=== PATIENT | male | born 1965 | race Caucasian/White ===

== ENCOUNTER 2016-10-24 14:50 | Emergency (ER) | payer OTHER ==
[2016-10-24 15:07] VITALS: BP 124/78; PULSE 88; RESP 16; TEMP 98
--- NOTE | 2016-10-24 15:14 | ED ---
Upper Extremity HPI - General Chief Complaint: Extremity Injury, Upper Stated Complaint: Right hand Injury/[facility] Time Seen by Provider: 10/24/16 15:08 Source: patient, RN notes reviewed, old records reviewed Mode of arrival: ambulatory Limitations: no limitations - History of Present Illness Initial Comments: Patient is a 50-year-old male with chief complaint of right hand injury after having it crushed between to 90 pound boxes of meat. Patient reports that his pain is mainly over the second metacarpal. Patient reports that he is right- handed. He states there is also slight abrasion over the hand. He denies any peripheral paresthesias and reports he has full range of motion of the fingers. Reports pain with flexion and extension of the second digit. He is denies any other injuries. Patient reports that he is up-to-date on his tetanus vaccination. Patient denies any recent fever, chills, shortness of breath, chest pain, back pain, abdominal pain, nausea vomiting, numbness or tingling, dysuria or hematuria, constipation or diarrhea, headaches or visual changes, or any other current symptoms - Related Data Home Medications Medication Instructions Recorded Confirmed Tapentadol HCl [Nucynta] 50 mg PO QID 06/17/14 06/17/14 Previous Rx's Medication Instructions Recorded Ipratropium/Albuterol Sulfate 2 puff INHALATION QID #1 inhaler 06/17/14 [Combivent Respimat Inhaler] predniSONE 20 mg PO BID #10 tab 06/17/14 Doxycycline Monohydrate [Monodox] 100 mg PO Q12HR #20 cap 12/10/14 Ibuprofen [Motrin] 800 mg PO Q6HR PRN #15 tab 10/24/16 Allergies Allergy/AdvReac Type Severity Reaction Status Date / Time amoxicillin [Amoxicillin] Allergy Rash/Hives Verified 10/24/16 15:07 Review of Systems ROS Statement: Those systems with pertinent positive or pertinent negative responses have been documented in the HPI. ROS Other: All systems not noted in ROS Statement are negative. Past Medical History Past Medical History: COPD, Hyperlipidemia Additional Past Medical History / Comment(s): DIVERTICULITIS, BACK PAIN History of Any Multi-Drug Resistant Organisms: None Reported Past Surgical History: Back Surgery, Orthopedic Surgery, Tonsillectomy Past Psychological History: No Psychological Hx Reported Smoking Status: Current every day smoker Past Alcohol Use History: None Reported Past Drug Use History: None Reported General Exam - General Exam Comments Initial Comments: Is a well-appearing 50-year-old male. He does not appear to be in any acute distress. Limitations: no limitations General appearance: alert, in no apparent distress Head exam: Present: atraumatic, normocephalic, normal inspection Eye exam: Present: normal appearance, PERRL, EOMI. Absent: scleral icterus, conjunctival injection, periorbital swelling ENT exam: Present: normal exam, mucous membranes moist Neck exam: Present: normal inspection, full ROM. Absent: tenderness, meningismus, lymphadenopathy Respiratory exam: Present: normal lung sounds bilaterally. Absent: respiratory distress, wheezes, rales, rhonchi, stridor Cardiovascular Exam: Present: regular rate, normal rhythm, normal heart sounds. Absent: systolic murmur, diastolic murmur, rubs, gallop, clicks GI/Abdominal exam: Present: soft, normal bowel sounds. Absent: distended, tenderness, guarding, rebound, rigid Extremities exam: Present: normal inspection, full ROM, normal capillary refill. Absent: tenderness, pedal edema, joint swelling, calf tenderness Right Upper Arm exam: Present: normal inspection, full ROM Elbow exam: Present: normal inspection, full ROM Forearm Wrist exam: Present: full ROM. Absent: normal inspection ( 1 cm Small abrasion on dorsum of right hand), tenderness, swelling Hand Wrist exam: Present: full ROM, swelling (mild swelling of 2nd metacarpal). Absent: normal inspection, tenderness, abrasion, laceration, ecchymosis, deformity, crepitus, dislocation Neuro motor exam: Present: wrist extension intact, thumb opposition intact, thumb IP flexion intact, thumb adduction intact, fingers 2-5 abduction intact Vascular: Present: vascular compromise Back exam: Present: normal inspection Neurological exam: Present: alert, oriented X3, CN II-XII intact Psychiatric exam: Present: normal affect, normal mood Skin exam: Present: warm, dry, intact, normal color. Absent: rash Course Vital Signs 10/24/16 15:05 Temperature 98.0 F Pulse Rate 88 Respiratory 16 Rate Blood Pressure 124/78 O2 Sat by Pulse 97 Oximetry Procedures - Orthopedic Splinting/Casting Injury #1 Side: right Upper Extremity Injury Location: hand Upper Extremity Immobilizer: Magdiel wrap Medical Decision Making - Medical Decision Making Is a 42-year-old male chief complaint of right hand injury after having his hand crushed between tonight boxes. Patient does have full range of motion of finger and denies any peripheral paresthesias. Patient is right-handed. X-ray was reviewed and is negative for any acute process. No fractures or dislocation. Patient will be discharged at this time with an Magdiel wrap and instructed to rest, ice and elevate extremity. I advised him to follow-up with orthopedic if symptoms continue to persist. Return to the EC if any alarming signs occur. Patient will be discharged with Motrin. Patient also given Magdiel wrap. Return parameters were discussed. - Radiology Data Radiology results: report reviewed Hand x-rays negative for any acute process. Disposition Clinical Impression: Contusion of right hand Disposition: HOME SELF-CARE Condition: Good Instructions: Hand Sprain (ED) Additional Instructions: Patient advised to rest, ice, and elevate extremity. Wear Magdiel wrap for the next 24 hours except to sleep. Return to the EC if any alarming signs or symptoms occur. Follow-up with orthopedic physician. Prescriptions: Ibuprofen [Motrin] 800 mg PO Q6HR PRN #15 tab PRN Reason: Pain Referrals: Logan Corbett MD [Primary Care Provider] - 1-2 days Rubio Melendez DO [Doctor of Osteopathic Medicine] - 1-2 days Time of Disposition: 15:44
--- NOTE | 2016-10-24 15:38 | XR ---
EXAMINATION TYPE: XR hand complete RT DATE OF EXAM: 10/24/2016 3:27 PM CLINICAL HISTORY: Pain after laceration injury fourth finger. TECHNIQUE: Frontal, lateral and oblique images of the right hand are obtained. COMPARISON: None. FINDINGS: There is no acute fracture/dislocation evident in the right hand. The joint spaces in the right hand appear within normal limits. Mild soft tissue swelling centered at the fourth proximal pha lanx is noted. No radiodense soft tissue foreign body is seen. IMPRESSION: There is no acute fracture or dislocation in the right hand.
== END 2016-10-24 15:50 | disposition home or self-care (01) ==
LOC: EC 14:50
DX: S60.221A Contusion of right hand, initial encounter (principal); S63.91XA Sprain of unspecified part of right wrist and hand, initial encounter; F17.200 Nicotine dependence, unspecified, uncomplicated; Z88.0 Allergy status to penicillin; W23.0XXA Caught, crushed, jammed, or pinched between moving objects, initial encounter
CPT/HCPCS: 99283

== ENCOUNTER 2016-11-23 17:40 | Emergency (ER) | payer MEDICARE, OTHER ==
[2016-11-23 18:14] VITALS: BP 125/87; PULSE 80; RESP 18; TEMP 97.3
[2016-11-23] MEDS ORDERED: MORPHINE SULFATE 10 MG/ML SYRINGE IM STA (18:43)
--- NOTE | 2016-11-23 18:45 | ED ---
General Adult HPI - General Chief complaint: Recheck/Abnormal Lab/Rx Stated complaint: hand pain swolling post Time Seen by Provider: 11/23/16 18:38 Source: patient, family, RN notes reviewed Mode of arrival: ambulatory Limitations: no limitations - History of Present Illness Initial comments: 51-year-old male presenting for right hand pain and swelling. Patient states that he sustained an open fracture to the right index finger 2 days ago. States he did follow-up at that time and was placed in a splint by a hand specialist. He followed with orthopedics who plans to do surgery this Sunday at [facility]. States that he is on Cipro for prophylactic treatment for the open fracture. States today though that the swelling seems to have increased in his hand in the areas become more painful. He denies fevers or chills associated. - Related Data Home Medications Medication Instructions Recorded Confirmed Ciprofloxacin HCl [Cipro] 500 mg PO Q12HR 11/23/16 11/23/16 HYDROcodone/APAP 5-325MG [[place] 1 tab PO Q6H PRN 11/23/16 11/23/16 5-325] Allergies Allergy/AdvReac Type Severity Reaction Status Date / Time amoxicillin [Amoxicillin] Allergy Rash/Hives Verified 11/23/16 18:40 Review of Systems ROS Statement: Those systems with pertinent positive or pertinent negative responses have been documented in the HPI. ROS Other: All systems not noted in ROS Statement are negative. Past Medical History Past Medical History: COPD, Hyperlipidemia Additional Past Medical History / Comment(s): DIVERTICULITIS, BACK PAIN History of Any Multi-Drug Resistant Organisms: None Reported Past Surgical History: Back Surgery, Orthopedic Surgery, Tonsillectomy Past Psychological History: No Psychological Hx Reported Smoking Status: Current every day smoker Past Alcohol Use History: None Reported Past Drug Use History: None Reported General Exam - General Exam Comments Initial Comments: General: Awake and Alert. No acute distress. Does not appear acutely ill. Eyes: OLIVIER, EOM intact. No nystagmus. No scleral icterus. HENT: Atraumatic, normocephalic. Mucous membranes moist. Trachea midline. Neck: The neck is supple, there is no tenderness or JVD. Cardiovascular: Regular rate and rhythm. No murmur, rub, or gallop is appreciated. Distal pulses intact, radial 2+. Respiratory: Lungs are clear to auscultation bilaterally. No wheezes, rales, rhonchi. No respiratory distress. Gastrointestinal: Soft, Nontender. No rebound or guarding. Non-distended. No masses or organomegaly noted. No CVA tenderness. Musculoskeletal: Splint present over right hand and forearm. Limited removal of splint shows intact skin with sutures present over right index finger at point of fracture. There is some swelling of the digits, but brisk cap refill. Neurovascularly intact digits. Neurological: A&Ox3. CN II-XII grossly intact, There are no obvious motor or sensory deficits. Coordination appears grossly intact. Speech is normal. Skin: Skin is warm and dry and no rashes or lesions are noted. Psychiatric: Cooperative, appropriate mood & affect, normal judgment. Limitations: no limitations Course Vital Signs 11/23/16 18:11 Temperature 97.3 F L Pulse Rate 80 Respiratory 18 Rate Blood Pressure 125/87 O2 Sat by Pulse 97 Oximetry Medical Decision Making - Medical Decision Making 51-year-old male with history of right next finger open fracture. Patient with splinted in place on examination. There is swelling to the hand and digits, although all digits appear neurovascularly intact with brisk cap refill. There is low suspicion of compartment syndrome at this time. X-ray imaging performed without evidence of subQ gas of acute findings. Evaluation of wound appears clean and intact. There is low suspicion for severe infectious or vascular process at this time. He was given medication with improvement of pain. States he has [place] at home to continue with pain management. Recommend ice and elevation. Discussed keeping his splint in place and to continue his prophylactic antibiotics. Patient states he has follow-up on Sunday for surgical pinning at [facility], encouraged to keep this. Discussed concerning signs and symptoms related return to the ED. Patient and family agreeable plan and discharge home. - Radiology Data Radiology results: report reviewed, image reviewed Disposition Clinical Impression: Right hand pain, Swelling of right hand, Fracture of phalanx of index finger Disposition: HOME SELF-CARE Condition: Stable Instructions: Finger Fracture (ED) Additional Instructions: Please keep your splint on at all times. Please keep follow-up with your orthopedic hand specialist at [place]. Referrals: Logan Corbett MD [Primary Care Provider] - 1-2 days Time of Disposition: 19:38
--- NOTE | 2016-11-23 19:13 | XR ---
EXAMINATION TYPE: XR hand limited RT DATE OF EXAM: 11/23/2016 7:02 PM CLINICAL HISTORY: Pain after crushing injury. TECHNIQUE: Frontal and lateral images of the right hand are obtained. COMPARISON: Right hand radiographs dated 10/24/2016. FINDINGS: Overlying splint/casting material limits visualization. The known proximal phalanx obliquel y oriented, minimally displaced fracture of the second digit is identified. There is 1-2 mm radial di splacement of the distal fracture fragment. There is no other gross evidence of fracture, although ag ain is limited. IMPRESSION: Splint/casting material limits visualization. The known second digit proximal phalanx fra cture is identified, obliquely oriented, and minimally radial the displaced (1 to 2 mm).
== END 2016-11-23 19:56 | disposition home or self-care (01) ==
LOC: EC 17:40
DX: S62.610G Displaced fracture of proximal phalanx of right index finger, subsequent encounter for fracture with delayed healing (principal); F17.200 Nicotine dependence, unspecified, uncomplicated; Z88.0 Allergy status to penicillin; X58.XXXD Exposure to other specified factors, subsequent encounter
CPT/HCPCS: 73120; 99283; 96372; J2270

== ENCOUNTER 2018-04-07 19:54 | Emergency (ER) | payer OTHER ==
[2018-04-07 20:02] VITALS: RESP 18
[2018-04-07] MEDS ORDERED: KETOROLAC 30 MG/ML 1 ML VIAL IVP STA (20:22)
--- NOTE | 2018-04-07 20:27 | ED ---
Abdominal Pain HPI - General Source: patient, family, RN notes reviewed Mode of arrival: ambulatory Limitations: no limitations - History of Present Illness MD Complaint: abdominal pain <Forest Bermeo - Last Filed: 04/07/18 21:41> <Servando Louis - Last Filed: 04/07/18 22:23> - General Chief Complaint: Abdominal Pain Stated Complaint: abdominal pain Time Seen by Provider: 04/07/18 20:15 - History of Present Illness Initial Comments: This is a 52-year-old male with a history of diverticulitis in the past with a 7 inch colon resection done in 2010 for the same who states he's had intermittent left lower quadrant abdominal pain for last several days about one hour ago he started having very severe 10/10 sharp stabbing left-sided pain no nausea or vomiting. It is worse when he is upright versus supine. No dysuria no hematuria no history kidney stones no other symptoms reported at this time no other modifying factors (Forest Bermeo) - Related Data Home Medications Medication Instructions Recorded Confirmed Ciprofloxacin HCl [Cipro] 500 mg PO Q12HR 11/23/16 11/23/16 HYDROcodone/APAP 5-325MG [[place] 1 tab PO Q6H PRN 11/23/16 11/23/16 5-325] Previous Rx's Medication Instructions Recorded Dicyclomine [Bentyl] 20 mg PO QID #15 tablet 04/07/18 Allergies Allergy/AdvReac Type Severity Reaction Status Date / Time amoxicillin [Amoxicillin] Allergy Rash/Hives Verified 04/07/18 20:01 Review of Systems ROS Other: All systems not noted in ROS Statement are negative. <Forest Bermeo - Last Filed: 04/07/18 21:41> ROS Other: All systems not noted in ROS Statement are negative. <Servando Louis - Last Filed: 04/07/18 22:23> ROS Statement: Those systems with pertinent positive or pertinent negative responses have been documented in the HPI. Past Medical History Past Medical History: COPD, Hyperlipidemia Additional Past Medical History / Comment(s): DIVERTICULITIS, BACK PAIN History of Any Multi-Drug Resistant Organisms: None Reported Past Surgical History: Back Surgery, Orthopedic Surgery, Tonsillectomy Past Psychological History: No Psychological Hx Reported Smoking Status: Current every day smoker Past Alcohol Use History: None Reported Past Drug Use History: None Reported <Forest Bermeo - Last Filed: 04/07/18 21:41> General Exam Limitations: no limitations General appearance: alert, anxious, in distress Head exam: Present: atraumatic, normocephalic, normal inspection Eye exam: Present: normal appearance, PERRL, EOMI. Absent: scleral icterus, conjunctival injection, periorbital swelling ENT exam: Present: mucous membranes dry Neck exam: Present: normal inspection. Absent: tenderness, meningismus, lymphadenopathy Respiratory exam: Present: normal lung sounds bilaterally. Absent: respiratory distress, wheezes, rales, rhonchi, stridor Cardiovascular Exam: Present: regular rate, normal rhythm, normal heart sounds. Absent: systolic murmur, diastolic murmur, rubs, gallop, clicks GI/Abdominal exam: Present: soft, tenderness (Left lower quadrant tenderness palpation with no guarding rebound masses or bruits), normal bowel sounds. Absent: distended, guarding, rebound, rigid Rectal exam: Present: deferred Extremities exam: Present: normal inspection, full ROM, normal capillary refill. Absent: tenderness, pedal edema, joint swelling, calf tenderness Back exam: Present: normal inspection, full ROM. Absent: CVA tenderness (R), CVA tenderness (L) Neurological exam: Present: alert, oriented X3, CN II-XII intact Psychiatric exam: Present: normal affect, normal mood Skin exam: Present: warm, dry, intact, normal color. Absent: rash <Forest Bermeo - Last Filed: 04/07/18 21:41> <Servando Louis - Last Filed: 04/07/18 22:23> - General Exam Comments Initial Comments: This is a well-developed well-nourished awake alert oriented 3 male (Forest Bermeo) Course <Forest Bermeo - Last Filed: 04/07/18 21:41> <Servando Louis - Last Filed: 04/07/18 22:23> Vital Signs 04/07/18 19:59 Temperature 97.9 F Pulse Rate 79 Respiratory 18 Rate Blood Pressure 136/91 O2 Sat by Pulse 95 Oximetry - Reevaluation(s) Reevaluation #1: 04/07/18 21:05 Patient states he is feeling somewhat better after the initial medication. His pain is down to about 2/10. CT is pending at this time (Forest Bermeo) Reevaluation #2: 04/07/18 21:41 The patient care will be endorsed to Dr. Louis at our shift change. (Forest Bermeo) Medical Decision Making - Lab Data Result diagrams: 04/07/18 20:34 04/07/18 20:34 <Forest Bermeo - Last Filed: 04/07/18 21:41> - Lab Data Result diagrams: 04/07/18 20:34 04/07/18 20:34 <Servando Louis - Last Filed: 04/07/18 22:23> - Medical Decision Making I receive this patient has a sign out, pending the results of his computed tomography scan. I reviewed the results with the patient and on reevaluation, he does not have any abdominal tenderness. He states that he is feeling much better, the pain is nearly entirely resolved. He does state that he has had multiple episodes of this over the past weeks. I discussed that he is follow- up regarding possibility of a colonoscopy. Reviewed the return parameters. All questions answered. (Servando Louis) - Lab Data Lab Results 04/07/18 04/07/18 04/07/18 Range/Units 20:34 20:34 20:34 WBC 11.3 H (3.8-10.6) k/uL RBC 5.24 (4.30-5.90) m/uL Hgb 14.9 (13.0-17.5) gm/dL Hct 44.5 (39.0-53.0) % MCV 84.9 (80.0-100.0) fL MCH 28.4 (25.0-35.0) pg MCHC 33.4 (31.0-37.0) g/dL RDW 13.2 (11.5-15.5) % Plt Count 283 (150-450) k/uL Neutrophils % 59 % Lymphocytes % 30 % Monocytes % 6 % Eosinophils % 2 % Basophils % 0 % Neutrophils # 6.7 (1.3-7.7) k/uL Lymphocytes # 3.5 (1.0-4.8) k/uL Monocytes # 0.7 (0-1.0) k/uL Eosinophils # 0.2 (0-0.7) k/uL Basophils # 0.0 (0-0.2) k/uL PT (9.0-12.0) sec INR (<1.2) APTT (22.0-30.0) sec Sodium 142 (137-145) mmol/L Potassium 3.8 (3.5-5.1) mmol/L Chloride 108 H (98-107) mmol/L Carbon Dioxide 24 (22-30) mmol/L Anion Gap 10 mmol/L BUN 17 (9-20) mg/dL Creatinine 0.90 (0.66-1.25) mg/dL Est GFR (CKD-EPI)AfAm >90 (>60 ml/min/1.73 sqM) Est GFR (CKD-EPI)NonAf >90 (>60 ml/min/1.73 sqM) Glucose 119 H (74-99) mg/dL Plasma Lactic Acid Alec 1.4 (0.7-2.0) mmol/L Calcium 9.3 (8.4-10.2) mg/dL Total Bilirubin 0.3 (0.2-1.3) mg/dL AST 30 (17-59) U/L ALT 32 (21-72) U/L Alkaline Phosphatase 72 (38-126) U/L Total Protein 6.8 (6.3-8.2) g/dL Albumin 4.1 (3.5-5.0) g/dL Amylase 37 (30-110) U/L Lipase 64 (23-300) U/L Urine Color Urine Appearance (Clear) Urine pH (5.0-8.0) Ur Specific [place] (1.001-1.035) Urine Protein (Negative) Urine Glucose (UA) (Negative) Urine Ketones (Negative) Urine Blood (Negative) Urine Nitrite (Negative) Urine Bilirubin (Negative) Urine Urobilinogen (<2.0) mg/dL Ur Leukocyte Esterase (Negative) Amorphous Sediment (None) /hpf Urine Mucus (None) /hpf 04/07/18 04/07/18 Range/Units 20:34 21:39 WBC (3.8-10.6) k/uL RBC (4.30-5.90) m/uL Hgb (13.0-17.5) gm/dL Hct (39.0-53.0) % MCV (80.0-100.0) fL MCH (25.0-35.0) pg MCHC (31.0-37.0) g/dL RDW (11.5-15.5) % Plt Count (150-450) k/uL Neutrophils % % Lymphocytes % % Monocytes % % Eosinophils % % Basophils % % Neutrophils # (1.3-7.7) k/uL Lymphocytes # (1.0-4.8) k/uL Monocytes # (0-1.0) k/uL Eosinophils # (0-0.7) k/uL Basophils # (0-0.2) k/uL PT 11.3 (9.0-12.0) sec INR 1.2 H (<1.2) APTT 23.0 (22.0-30.0) sec Sodium (137-145) mmol/L Potassium (3.5-5.1) mmol/L Chloride (98-107) mmol/L Carbon Dioxide (22-30) mmol/L Anion Gap mmol/L BUN (9-20) mg/dL Creatinine (0.66-1.25) mg/dL Est GFR (CKD-EPI)AfAm (>60 ml/min/1.73 sqM) Est GFR (CKD-EPI)NonAf (>60 ml/min/1.73 sqM) Glucose (74-99) mg/dL Plasma Lactic Acid Alec (0.7-2.0) mmol/L Calcium (8.4-10.2) mg/dL Total Bilirubin (0.2-1.3) mg/dL AST (17-59) U/L ALT (21-72) U/L Alkaline Phosphatase (38-126) U/L Total Protein (6.3-8.2) g/dL Albumin (3.5-5.0) g/dL Amylase (30-110) U/L Lipase (23-300) U/L Urine Color Yellow Urine Appearance Cloudy (Clear) Urine pH 7.0 (5.0-8.0) Ur Specific [place] 1.023 (1.001-1.035) Urine Protein Trace H (Negative) Urine Glucose (UA) Negative (Negative) Urine Ketones Negative (Negative) Urine Blood Negative (Negative) Urine Nitrite Negative (Negative) Urine Bilirubin Negative (Negative) Urine Urobilinogen 2.0 (<2.0) mg/dL Ur Leukocyte Esterase Negative (Negative) Amorphous Sediment Rare H (None) /hpf Urine Mucus Rare H (None) /hpf Disposition <Forest Bermeo - Last Filed: 04/07/18 21:41> Is patient prescribed a controlled substance at d/c from ED?: No <Servando Louis - Last Filed: 04/07/18 22:23> Clinical Impression: Abdominal pain Disposition: HOME SELF-CARE Condition: Good Instructions: Abdominal Pain (ED) Prescriptions: Dicyclomine [Bentyl] 20 mg PO QID #15 tablet Referrals: Karan Corbett MD [Primary Care Provider] - 1-2 days Saul Gutierrez MD [STAFF PHYSICIAN] - 1-2 days
[2018-04-07 20:45] LABS: Basophils % (A) 0 %; Eosinophils # (A) 0.2 k/uL (0-0.7); Eosinophils % (A) 2 %; HCT 44.5 % (39.0-53.0); HGB 14.9 gm/dL (13.0-17.5); Lymphocytes # (A) 3.5 k/uL (1.0-4.8); Lymphocytes % (A) 30 %; MCH 28.4 pg (25.0-35.0); MCHC 33.4 g/dL (31.0-37.0); MCV 84.9 fL (80.0-100.0); Mean Platelet Volume 7.1; Monocytes # (A) 0.7 k/uL (0-1.0); Monocytes % (A) 6 %; Neutrophils # (A) 6.7 k/uL (1.3-7.7); Neutrophils % (A) 59 %; Platelet Count 283 k/uL (150-450); RBC 5.24 m/uL (4.30-5.90); RDW 13.2 % (11.5-15.5); WBC 11.3 k/uL (3.8-10.6)
[2018-04-07 20:54] LABS: ALT 32 U/L (21-72); AST 30 U/L (17-59); Albumin 4.1 g/dL (3.5-5.0); Alkaline Phosphatase 72 U/L (38-126); Amylase 37 U/L (30-110); Anion Gap 10 mmol/L; Blood Urea Nitrogen 17 mg/dL (9-20); Calcium 9.3 mg/dL (8.4-10.2); Carbon Dioxide 24 mmol/L (22-30); Chloride 108 mmol/L (98-107); Glucose 119 mg/dL (74-99); Lipase 64 U/L (23-300); Potassium 3.8 mmol/L (3.5-5.1); Sodium 142 mmol/L (137-145); Total Bilirubin 0.3 mg/dL (0.2-1.3); Total Protein 6.8 g/dL (6.3-8.2)
[2018-04-07 20:55] LABS: INR 1.2 (<1.2); Prothrombin Time 11.3 sec (9.0-12.0)
--- NOTE | 2018-04-07 21:31 | CT ---
EXAMINATION TYPE: CT abdomen pelvis wo con DATE OF EXAM: 04/07/2018 HISTORY: Abdominal pain/umbilical region CT DLP: 568.10 mGycm. Automated Exposure Control for Dose Reduction was Utilized. TECHNIQUE: CT scan of the abdomen and pelvis is performed without oral or IV contrast. COMPARISON: CT of pelvis 02/25/2011 FINDINGS: Within the limitations of a non-contrast study, the following observations are made. LUNG BASES: No significant abnormality is appreciated. Left hemidiaphragm is again nonspecifically el evated. LIVER/GB: No significant abnormality is appreciated. PANCREAS: No significant abnormality is seen. SPLEEN: No significant abnormality is seen. ADRENALS: No significant abnormality is seen. KIDNEYS: No significant abnormality. The right sided renal cyst has increased in size in the interval and remains benign by imaging characteristics. BOWEL: No significant abnormality is seen. Appendix is air-filled and unremarkable. Postsurgical thurman ges of the rectosigmoid colon are evident. GENITAL ORGANS: No gross abnormality seen. LYMPH NODES: No greater than 1cm abdominal or pelvic lymph nodes are appreciated. OSSEOUS STRUCTURES: No significant abnormality is seen. OTHER: No significant additional abnormality is seen. IMPRESSION: No acute intra-abdominal or pelvic process on this unenhanced exam. No significant interval change.
[2018-04-07 21:52] LABS: Amorphous Sediment,Urine Rare /hpf; Appearance,Urine Cloudy (Clear); Bilirubin,Urine Negative (Negative); Blood,Urine Negative (Negative); Color,Urine Yellow; Glucose,Urine (UA) Negative (Negative); Ketones,Urine Negative (Negative); Leukocyte Esterase,Urine Negative (Negative); Mucus,Urine Rare /hpf; Nitrite,Urine Negative (Negative); Protein,Urine Trace (Negative); Specific Gravity,Urine 1.023 (1.001-1.035)
[2018-04-07 23:00] VITALS: BP 107/56; PULSE 66; TEMP 97.6
== END 2018-04-07 22:59 | disposition home or self-care (01) ==
LOC: EC 19:54
DX: R10.32 Left lower quadrant pain (principal); F17.200 Nicotine dependence, unspecified, uncomplicated; Z88.0 Allergy status to penicillin; Z87.19 Personal history of other diseases of the digestive system
CPT/HCPCS: 96374 ×2; 99284 ×2; 36415; 80053; 82150; 83605; 83690; 85025; 85610; 85730; 81001; 74176; J1885

== ENCOUNTER → 2018-05-03 | Outpatient (CLI) | payer OTHER ==
--- NOTE | 2018-05-03 16:39 | CT ---
EXAMINATION TYPE: CT abdomen pelvis w con DATE OF EXAM: 05/03/2018 COMPARISON: CT abdomen pelvis April 07, 2018. HISTORY: Left lower abdominal pain for 2 months. History of colon resection from diverticulitis. CT DLP: 803.2 mGycm, Automated Exposure Control for Dose Reduction was Utilized. CONTRAST: CT scan of the abdomen and pelvis is performed with oral and with IV Contrast, patient injected with 100 mL of Isovue 300. FINDINGS: LUNG BASES: There is persistent linear scarring laterally in the left lung base. Elevated left hemidi aphragm is redemonstrated. LIVER/GB: No significant abnormality is appreciated. PANCREAS: No significant abnormality is seen. SPLEEN: No significant abnormality is seen. ADRENALS: No significant abnormality is seen. KIDNEYS: There is 6.2 cm simple appearing exophytic cyst upper pole level right kidney redemonstrated . Some scattered pelvic phleboliths are seen. BOWEL: Normal-appearing appendix is seen from cecum. Oral contrast does not reach level of cecum karrie ng evaluation of distal bowel slightly suboptimal. There is no suspicious small or large bowel dilata tion. Surgical sutures of sigmoid rectal colon axial image 76 are redemonstrated. Some prominent but subcentimeter lymph nodes in the right lower quadrant mesentery for reference axia l image 59; a 10 x 8mm lymph node is redemonstrated. PROSTATE/SEMINAL VESICLES: No gross abnormality seen. LYMPH NODES: No greater than 1cm abdominal or pelvic lymph nodes are appreciated. OSSEOUS STRUCTURES: Moderate multilevel facet arthropathy in the lower lumbar spine is redemonstrated . OTHER: Stable tiny fat-containing umbilical hernia. Mild to moderate mixed plaque in the abdominal ao rta. Surgical clips near left common iliac artery are redemonstrated. IMPRESSION: No significant new or acute finding is seen to account for patient's clinical symptoms.
== END | disposition home or self-care (01) ==
LOC: RADCTMAIN 14:06
PROVIDERS: ATTEND Surgery
DX: K57.32 Diverticulitis of large intestine without perforation or abscess without bleeding (principal)
CPT/HCPCS: 74177; Q9967

== ENCOUNTER 2019-12-25 16:54 | Observation (INO) | payer OTHER ==
[2019-12-25] MEDS ORDERED: SODIUM CHLORIDE 0.9% 500 ML 500 ML IV STA (17:34)
[2019-12-25] MEDS ORDERED: ASPIRIN 81 MG PO STA (17:34)
[2019-12-25] MEDS ORDERED: NITROGLYCERIN SL TABS 0.4 MG TAB SUBLINGUAL STA (17:40)
[2019-12-25 18:08] LABS: Basophils % (A) 0 %; Eosinophils # (A) 0.1 k/uL (0-0.7); Eosinophils % (A) 1 %; HCT 46.5 % (39.0-53.0); HGB 15.2 gm/dL (13.0-17.5); Lymphocytes # (A) 3.3 k/uL (1.0-4.8); Lymphocytes % (A) 26 %; MCHC 32.7 g/dL (31.0-37.0); MCV 85.7 fL (80.0-100.0); Mean Platelet Volume 7.8; Monocytes % (A) 8 %; Neutrophils # (A) 7.9 k/uL (1.3-7.7); Neutrophils % (A) 62 %; Platelet Count 342 k/uL (150-450); RBC 5.43 m/uL (4.30-5.90); WBC 12.6 k/uL (3.8-10.6)
[2019-12-25 18:15] LABS: ALT 20 U/L (4-49); AST 25 U/L (17-59); African American GFR (CKD) >90 (>60 ml/min/1.73 sqM); Albumin 4.6 g/dL (3.5-5.0); Alkaline Phosphatase 97 U/L (38-126); Anion Gap 6 mmol/L; Blood Urea Nitrogen 10 mg/dL (9-20); C Reactive Protein 10.6 mg/L (<10.0); Calcium 9.5 mg/dL (8.4-10.2); Carbon Dioxide 25 mmol/L (22-30); Chloride 104 mmol/L (98-107); Glucose 144 mg/dL (74-99); LDH 484 U/L (313-618); Magnesium 1.9 mg/dL (1.6-2.3); Non-African American GFR(CKD) >90 (>60 ml/min/1.73 sqM); Potassium 4.3 mmol/L (3.5-5.1); Sodium 135 mmol/L (137-145); Total Bilirubin 0.4 mg/dL (0.2-1.3); Total Protein 7.8 g/dL (6.3-8.2)
[2019-12-25 18:18] LABS: D-Dimer 0.38 mg/L FEU (<0.60); Partial Thromboplastin Time 24.2 sec (22.0-30.0); Prothrombin Time 10.6 sec (9.0-12.0)
--- NOTE | 2019-12-25 18:26 | XR ---
EXAMINATION TYPE: XR chest 1V portable DATE OF EXAM: 12/25/2019 COMPARISON: 06/17/2014 INDICATION: Suspected Covid 19 pneumonia TECHNIQUE: Single frontal view of the chest is obtained. FINDINGS: The heart size is normal. The pulmonary vasculature is normal. There is some infiltrate just above the elevated left diaphragm. Correlate for atelectasis. Pneumonia could be considered. IMPRESSION: 1. Elevated left diaphragm. Some infiltrate is just above the elevated diaphragm. Atelectasis and pne umonia should be considered.
--- NOTE | 2019-12-25 19:27 | ED ---
Chest Pain HPI - General Source: patient Mode of arrival: wheelchair Limitations: no limitations <Ginna Rosas - Last Filed: 12/25/19 20:28> <Tomasa Gongora - Last Filed: 12/27/19 13:44> - General Chief Complaint: Chest Pain Stated Complaint: Chest pain Time Seen by Provider: 12/25/19 17:13 - History of Present Illness Initial Comments: Patient is a 54-year-old male, with history of COPD, presenting to the emergency Department with complaints of chest pain that started today. Patient states he's been having increasing shortness of breath over the past 2-3 days and then this morning while he was working, he started having chest pain. Patient states it's been continuous throughout today. 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 He describes the pain as sharp, on the left side of his chest. Patient denies history of cardiac events, he has not had a stress test. He does not currently have a PCP. Patient denies recent fever, chills, abdominal pain, nausea, vomiting. He does admit to having a cough for the past 2-3 days as well. He admits to smoking about a pack a day. No other drug use. He has no other complaints at this time. Upon arrival to the ER, his vital signs are stable, afebrile. (Ginna Rosas) - Related Data Home Medications Medication Instructions Recorded Confirmed Albuterol Inhaler [Ventolin Hfa 2 puff INHALATION RT-QID PRN 12/25/19 12/25/19 Inhaler] Allergies Allergy/AdvReac Type Severity Reaction Status Date / Time amoxicillin [Amoxicillin] Allergy Rash/Hives Verified 12/25/19 19:39 Review of Systems ROS Other: All systems not noted in ROS Statement are negative. <Ginna Rosas - Last Filed: 12/25/19 20:28> ROS Other: All systems not noted in ROS Statement are negative. <Tomasa Gongora - Last Filed: 12/27/19 13:44> ROS Statement: Those systems with pertinent positive or pertinent negative responses have been documented in the HPI. EKG Findings - EKG Comments: EKG Findings:: Ventricular rate 78, CT interval 140, QTC 449. Normal sinus rhythm. Normal ECG. No signs of acute ischemia. <Ginna Rosas - Last Filed: 12/25/19 20:28> Past Medical History Past Medical History: COPD, Hyperlipidemia Additional Past Medical History / Comment(s): DIVERTICULITIS, BACK PAIN History of Any Multi-Drug Resistant Organisms: None Reported Past Surgical History: Back Surgery, Orthopedic Surgery, Tonsillectomy Past Psychological History: No Psychological Hx Reported Smoking Status: Current every day smoker Past Alcohol Use History: None Reported Past Drug Use History: None Reported <Ginna Rosas - Last Filed: 12/25/19 20:28> General Exam Limitations: no limitations <Ginna Rosas - Last Filed: 12/25/19 20:28> - General Exam Comments Initial Comments: GENERAL: Well-appearing, well-nourished and in no acute distress. HEAD: Atraumatic, normocephalic. EYES: Pupils equal round and reactive to light, extraocular movements intact, sclera anicteric, conjunctiva are normal. ENT: TMs normal, nares patent, oropharynx clear without exudates. Moist mucous membranes. NECK: Normal range of motion, supple without lymphadenopathy or JVD. LUNGS: Breath sounds clear to auscultation bilaterally and equal. Mild expiratory wheezes scattered throughout. HEART: Regular rate and rhythm without murmurs, rubs or gallops. ABDOMEN: Soft, nontender, normoactive bowel sounds. No guarding, no rebound. No masses appreciated. : Deferred EXTREMITIES: Normal range of motion, no pitting or edema. No clubbing or cyanosis. NEUROLOGICAL: Normal speech, normal gait. PSYCH: Normal mood, normal affect. SKIN: Warm, Dry, normal turgor, no rashes or lesions noted. (Ginna Rosas) Course Vital Signs 12/25/19 12/25/19 12/25/19 16:56 18:45 20:30 Temperature 98.0 F Pulse Rate 82 86 76 Respiratory 18 18 18 Rate Blood Pressure 152/90 132/91 119/91 O2 Sat by Pulse 97 94 L 95 Oximetry 12/25/19 21:00 Temperature 98.4 F Pulse Rate 76 Respiratory 18 Rate Blood Pressure 137/94 O2 Sat by Pulse 95 Oximetry Chest Pain MDM <Ginna Rosas - Last Filed: 12/25/19 20:28> <Tomasa Gongora - Last Filed: 12/27/19 13:44> - [facility] Patient is a 54-year-old male presenting for chest pain 1 day. He does have history of COPD. The last 2 days he had a cough and shortness of breath and then today experienced chest pain. His vitals are stable upon arrival. His exam is unremarkable. His EKG shows no signs of acute ischemia. Lab work shows slight leukocytosis at 12.6 with left shift. D-dimer was normal. Lactic acid is 1.0. Troponin was normal, rapid Gibson and influenza were both negative. Chest x-ray does reveal some mild infiltrate on the left side. Pneumonia is considered. Patient was given fluids, nitro upon arrival. He states his chest pain did decrease with the nitro. He is comfortable at this time. Patient will be given single dose of azithromycin as well as steroids for probable pneumonia. Patient will be admitted for cardiac consult and cardiac rule out. Patient was accepted by Dr. Corbett. Case discussed with Dr. Gongora. (Ginna Rosas) I was available for consultation in the emergency department. The history and physical exam were done by the midlevel provider. I was consulted for this patients care. I reviewed the case with the midlevel provider and based on their presentation of the patient, I agree with the assessment, medical decision making and plan of care as documented. Chart was dictated using [employer] dictation software. Attempts were made to correct any dictation errors however some typographical errors may persist. Patient was seen during a national state of emergency due to the Covid-19 pandemic. (Tomasa Gongora) Disposition Is patient prescribed a controlled substance at d/c from ED?: No Decision Date: 12/25/19 Decision Time: 19:47 <Ginna Rosas - Last Filed: 12/25/19 20:28> <Tomasa Gongora - Last Filed: 12/27/19 13:44> Clinical Impression: Chest pain, Pneumonia Disposition: ADMITTED IP TO THIS HOSP Condition: Good
[2019-12-25] MEDS ORDERED: NITROGLYCERIN SL TABS 0.4 MG TAB SUBLINGUAL PRN (19:45)
[2019-12-25] MEDS ORDERED: AZITHROMYCIN 500 MG TAB PO STA (19:48)
[2019-12-25] MEDS ORDERED: methylPREDNISolone SOD SUCCI 125 MG/2 ML VIAL IV STA (19:48)
[2019-12-26] MEDS: methylPREDNISolone SOD SUCCI 40 MG/ML 1 ML VIAL IV SCH ×4 (00:02→22:46)
[2019-12-26] MEDS: ACETAMINOPHEN TAB 325 MG TAB PO PRN ×3 (03:19→18:59)
[2019-12-26 04:04] LABS: Ferritin 238.7 ng/mL (22.0-322.0)
[2019-12-26 05:53] LABS: Glucose,Whole Blood 143 mg/dL (75-99)
[2019-12-26 06:40] LABS: Cholesterol 288 mg/dL (<200); HDL Cholesterol 46 mg/dL (40-60); LDL Cholesterol,Calculated 221 mg/dL (0-99); Triglycerides 104 mg/dL (<150)
--- NOTE | 2019-12-26 09:44 | ECHOF ---
Referral Reason:chest pain MEASUREMENTS -------- HEIGHT: 180.3 cm WEIGHT: 58.1 kg BP: 117/79 IVSd: 1.2 cm (0.6 - 1.1) LVIDd: 3.4 cm (3.9 - 5.3) LVPWd: 1.2 cm (0.6 - 1.1) IVSs: 1.2 cm LVIDs: 2.3 cm LVPWs: 1.2 cm LAESV Index (A-L): 11.71 ml/m Ao Diam: 3.5 cm (2.0 - 3.7) AV Cusp: 1.7 cm (1.5 - 2.6) LA Diam: 2.4 cm (2.7 - 3.8) MV EXCURSION: 24.295 mm (> 18.000) MV EF SLOPE: 160 mm/s (70 - 150) EPSS: 0.7 cm MV E Bc: 0.75 m/s MV DecT: 220 ms MV A Bc: 0.72 m/s MV E/A Ratio: 1.05 RAP: 5.00 mmHg RVSP: 8.66 mmHg FINDINGS -------- Sinus rhythm. This was a technically adequate study. The left ventricular size is normal. There is mild concentric left ventricular hypertrophy. Overa ll left ventricular systolic function is normal with, an EF between 55 - 60 %. The diastolic fillin g pattern is normal for the age of the patient 9.18. The RV was not well visualized. Normal LA size by volume 22+/-6 ml/m2. The right atrial size is normal. The aortic valve was not well visualized. The mitral valve leaflets are mildly thickened. There is trace mitral regurgitation. The tricuspid valve appears structurally normal. Trace tricuspid regurgitation present. Right marcell tricular systolic pressure is normal at < 35 mmHg. There is no pulmonic regurgitation present. The aortic root size is normal. IVC Not well visulized. There is no pericardial effusion. CONCLUSIONS -------- 1. There is mild concentric left ventricular hypertrophy. 2. Overall left ventricular systolic function is normal with, an EF between 55 - 60 %. 3. The diastolic filling pattern is normal for the age of the patient 9.18 4. The RV was not well visualized. 5. Normal LA size by volume 22+/-6 ml/m2. 6. The aortic valve was not well visualized. 7. There is trace mitral regurgitation. 8. Trace tricuspid regurgitation present. CIRCUIT CLERK: Kaylah Humphries RDCS
[2019-12-26] MEDS: HEPARIN SODIUM,PORCINE 5,000 UNIT/ML 1 ML VIAL SQ SCH ×2 (10:20→19:56)
[2019-12-26] MEDS: AZITHROMYCIN 500 MG in SODIUM CHLORIDE 0.9% 250 ML IVPB SCH (10:20)
[2019-12-26] MEDS: ASPIRIN 325 MG TAB PO SCH (10:20)
[2019-12-26 11:06] LABS: Glucose,Whole Blood 190 mg/dL (75-99)
--- NOTE | 2019-12-26 11:08 | CONS ---
CONSULTATION Abner Dempsey is a 54-year-old gentleman without significant past medical history. He seems to have some bronchial asthma and takes an inhaler occasionally. He came into the hospital with complaints of what he described as a sharp pain in the chest. He has been having some shortness of breath over the last 2 to 3 days and he started having pain. It occurred actually when he was doing some not very light physical activity. 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 His symptoms have completely resolved. He is resting comfortably at the time of my evaluation. He has no chest pain or shortness of breath. He seems to be much more comfortable. He does carry an inhaler and has a diagnosis of possible bronchial asthma. PAST MEDICAL HISTORY: Remarkable for some the smoking and COPD. ALLERGIES: PENICILLIN. MEDICATIONS: He does not take any regular medications. He is status post back surgery and tonsillectomy. PHYSICAL EXAMINATION: On examination, blood pressure is 118/70, pulse rate is 68 per minute regular. HEENT: Unremarkable. Fundus was not examined by me. Neck is supple. No JVD. I do not hear a carotid bruit. There is no thyromegaly. Heart exam reveals S1, S2 with some scattered rhonchi. Abdomen is soft, nontender. Lower extremities reveal normal pulses. No edema. Central nervous system is grossly within normal limits. EKG revealed a sinus mechanism, no acute changes. LABORATORY DATA: Laboratory data revealed that his 3 sets of troponins are normal. LDL cholesterol is elevated over 220. His BNP is unremarkable. His serology for the coronavirus was negative. His D-dimer is normal. IMPRESSION: 1. Atypical chest pain. 2. Exacerbation of chronic obstructive pulmonary disease/bronchial asthma. 3. History of smoking. 4. Hyperlipidemia. RECOMMENDATIONS: I am recommending that we will initiate him on a statin agent given his significantly elevated LDL cholesterol. Once his respiratory status improves, he can have a stress test as an outpatient. Patient is currently on steroids and bronchodilators and Zithromax. Once his respiratory status is stabilized, we will can do a stress test as an outpatient. I will initiate him on Lipitor 40 mg daily p.o. There is no evidence to suggest any ongoing acute myocardial ischemia. Thank you very much for the consult. MMODL / IJN: [id number] /
[2019-12-26] MEDS ORDERED: RX INFO: IV CONTRAST WAS GIVEN 1 EACH MISC MISCELLANE PRN (14:08)
--- NOTE | 2019-12-26 15:35 | CT ---
EXAMINATION TYPE: CT chest w con DATE OF EXAM: 12/26/2019 COMPARISON: None HISTORY: Left side chest pain CT DLP: 445 mGycm, Automated exposure control for dose reduction was used. CONTRAST: Performed injected with 100 mL of Isovue 300. TECHNIQUE: Axial images were obtained at 5 mm thick sections. Reconstructed images are reviewed on [employer] computer in the coronal plane. FINDINGS: Portion of the thyroid visualized is normal. No suspicious lung nodules or focal infiltrates are present. Minimal emphysematous changes are at the lung apices with blebs. No enlarged mediastinal or hilar adenopathy is evident. The ascending aorta diameter at the level o f the main pulmonary artery is 3.4 cm. The main pulmonary artery diameter at the bifurcation is 2.9 cm. There is elevation of the left diaphragm. Previous infiltrate on the chest x-ray of 12/25/2019 is not evident on the lung windows and likely represented atelectasis. Minimal residual may remain within th e lingula. Limited CT sections are obtained through the upper abdomen. A large cyst is on the posterior superior pole right kidney measuring 6.4 cm and 8 Hounsfield units. IMPRESSIONS: 1. Resolving infiltrate within the lingula, diminished from the chest x-ray may be resolving atelecta sis. 2. Chronic elevation left diaphragm
--- NOTE | 2019-12-26 15:51 | HP ---
HISTORY AND PHYSICAL A 54-year-old white male, history of COPD, came to the emergency room with chest pain that started today. Increasing shortness of breath for the past 2-3 days with left- sided pleuritic chest pain. 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 Pain is sharp, left-sided chest, clearly pleuritic and respiratory in nature. He has been short of breath and had some diaphoresis, fevers, chills. He smokes a pack of cigarettes a day. Does not do drugs. No other complaints. HOME MEDICINES: Takes Albuterol for COPD. ALLERGIES: AMOXICILLIN. . 14 POINT REVIEW OF SYSTEMS: Negative except for HPI. EKG shows normal sinus rhythm. PAST MEDICAL HISTORY: COPD, dyslipidemia, diverticulitis, chronic back pains. SURGICAL HISTORY: Back surgery, orthopedic surgery, tonsillectomy, current everyday smoker. PHYSICAL EXAM: Vital signs are stable, afebrile. CARDIOVASCULAR S1, S2. LUNGS: Transmitted upper airway sounds. HEMATOLOGIC: Negative Homans. LUNGS: Show transmitted upper airway sounds. Left upper chest, some mild wheeze and rhonchi. PSYCH: Fair mood and affect. SKIN: Warm and dry. No rash. He looks his stated age. Temp is 98, pulse 80 to 86, respiratory 18-25, blood pressure 130s to 150s/90 to 91, O2 is 97% to 94% on room air. ASSESSMENT: Chest pain, pneumonia. He had negative salazar and influenza, but we have to repeat the salazar test. Suspect he has COVID infection versus community-acquired pneumonia. Treat with antibiotics and anti-inflammatories. Follow up next 24 to 48 hours. Nicotine patch. IV steroids. MMODL / IJN: [id number] /
[2019-12-26 16:31] LABS: Glucose,Whole Blood 135 mg/dL (75-99)
[2019-12-26 20:34] LABS: Glucose,Whole Blood 152 mg/dL (75-99)
--- NOTE | 2019-12-27 00:38 | P.CONS ---
History of Present Illness - Reason for Consult Consult date: 12/26/19 pneumonia ?COVID Requesting physician: Logan Corbett - Chief Complaint LEFT SIDED Chest pain x 1 day - History of Present Illness Patient is a 54-year-old male presenting to the ER at [facility] last evening with chief complaints of chest pain that started the day he presented to the hospital patient did have been mostly on the left side of the chest describing to be more of a sharp in nature intensity almost 7-8 of 10 when he presented to hospital no radiation patient did have significantly shortness of breath with it did have have very minimal cough 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 but denies any fever or any chills with the symptom the patient was evaluated by the ER physician on arrival to the ER patient has been afebrile patient did have a mild elevated white blood 12.6 current exam are negative CRP was mildly elevated 10.6 attending normal procalcitonin was normal lactic acid was normal patient did have a chest x-ray which shows elevated left hemidiaphrag m some infiltrate just above the diaphragm consulted for atelectasis or pneumonia patient was started on Zithromax has been admitted to hospital infectious was consulted for further recommendation of antibiotic therapy patient did have COVID-19 her nasopharyngeal swab which came back negative and his CT of the chest completed today shows resolving infiltrate within the lingula. Review of Systems Positive point has been mentioned in HPI rest of the systems are negative Past Medical History Past Medical History: COPD Additional Past Medical History / Comment(s): DIVERTICULITIS, BACK PAIN History of Any Multi-Drug Resistant Organisms: None Reported Past Surgical History: Back Surgery, Orthopedic Surgery, Tonsillectomy Additional Past Surgical History / Comment(s): L5 S1 laminectomy Past Psychological History: No Psychological Hx Reported Smoking Status: Current every day smoker Past Alcohol Use History: None Reported Past Drug Use History: None Reported Medications and Allergies Home Medications Medication Instructions Recorded Confirmed Type Albuterol Inhaler [Ventolin Hfa 2 puff INHALATION RT-QID PRN 12/25/19 12/25/19 History Inhaler] Allergies Allergy/AdvReac Type Severity Reaction Status Date / Time amoxicillin [Amoxicillin] Allergy Rash/Hives Verified 12/25/19 19:39 Physical Exam Vitals: Vital Signs Temp Pulse Resp BP Pulse Ox 12/26/19 23:04 85 18 12/26/19 23:02 98.6 F 85 18 127/76 94 L 12/26/19 20:00 98.7 F 82 19 138/81 95 12/26/19 16:05 97.8 F 78 16 103/76 92 L 12/26/19 15:39 79 16 12/26/19 13:17 97.8 F 78 16 119/75 94 L 12/26/19 12:24 81 18 12/26/19 10:00 97.5 F L 87 18 117/70 94 L 12/26/19 07:15 95 12/26/19 03:40 64 18 12/26/19 03:39 97.6 F 64 18 117/79 95 12/26/19 00:05 82 18 12/26/19 00:03 97.8 F 82 18 125/78 97 12/25/19 23:41 97.6 F 76 18 137/80 95 Intake and Output 12/26/19 12/26/19 12/27/19 14:59 22:59 06:59 Intake Total 444 490 10 Balance 444 490 10 Intake: IV 10 10 Invasive Line 1 10 10 Oral 444 480 Other: Voiding Method Toilet Toilet Toilet # Voids 1 2 GENERAL DESCRIPTION: Middle-aged male lying in bed, no distress. No tachypnea or accessory muscle of respiration use. HEENT: Shows Pallor , no scleral icterus. Oral mucous membrane is dry. NECK: Trachea central, no thyromegaly. LUNGS: Unlabored breathing. Clear to auscultation anteriorly. No wheeze or crackle. HEART: S1, S2, regular rate and rhythm. ABDOMEN: Soft, no tenderness , guarding or rigidity EXTREMITIES: No edema of feet. SKIN: No rash, no masses palpable. NEUROLOGICAL: The patient is awake, alert, oriented x3, mood and affect normal. Results CBC & Chem 7: 12/25/19 17:15 12/25/19 17:15 Labs: Abnormal Lab Results - Last 24 Hours (Table) 12/26/19 12/26/19 12/26/19 Range/Units 05:13 05:44 11:05 POC Glucose (mg/dL) 143 H 190 H (75-99) mg/dL Cholesterol 288 H (<200) mg/dL LDL Cholesterol, Calc 221 H (0-99) mg/dL 12/26/19 12/26/19 Range/Units 16:30 20:33 POC Glucose (mg/dL) 135 H 152 H (75-99) mg/dL Cholesterol (<200) mg/dL LDL Cholesterol, Calc (0-99) mg/dL Assessment and Plan Assessment: 1-patient presented to hospital with left-sided chest pain which could be more likely muscular in this patient being started when he was lifting heavy garbage, patient with no fever however did have a mild elevated white count with initial x-ray suspicious for pneumonia possible community-acquired the patient overall improvement in his symptoms with Zithromax 2-patient with penicillin allergy limited number of antibiotics safe to use. 3-patient with no fever , no lymphopenia and normal LDH make it less likely to be acute COVID-19 infection (1) Pneumonia Current Visit: Yes Status: Acute Code(s): J18.9 - PNEUMONIA, UNSPECIFIED ORGANISM SNOMED Code(s): 136135193 Plan: 1-we will add Rocephin 1 g daily and continue with Zithromax 2-obtain a sputum for Gram stain and culture We will follow on clinical condition and cultures to further adjust medication if needed Thank you for this consultation we will follow the patient along with you Time with Patient: Greater than 30
[2019-12-27 04:12] VITALS: RESP 16
[2019-12-27 06:17] LABS: Glucose,Whole Blood 147 mg/dL (75-99)
[2019-12-27] MEDS: AZITHROMYCIN 500 MG in SODIUM CHLORIDE 0.9% 250 ML IVPB SCH (09:34)
[2019-12-27] MEDS: ASPIRIN 325 MG TAB PO SCH (09:34)
[2019-12-27] MEDS: HEPARIN SODIUM,PORCINE 5,000 UNIT/ML 1 ML VIAL SQ SCH (09:34)
[2019-12-27] MEDS: methylPREDNISolone SOD SUCCI 40 MG/ML 1 ML VIAL IV SCH (09:34)
[2019-12-27] MEDS ORDERED: ATORVASTATIN 40 MG TAB PO SCH (09:50)
[2019-12-27 10:47] VITALS: TEMP 97.6
[2019-12-27 12:16] LABS: Glucose,Whole Blood 111 mg/dL (75-99)
--- NOTE | 2019-12-27 14:11 | PN ---
PROGRESS NOTE Mr. Dempsey is comfortable, resting. No further chest pain. His breathing is easier. Vitals are stable. No JVD, S1, S2 heard normally. Lungs are clear. Abdomen and lower extremity exam unchanged. Plan is to continue current medications, increase activity and he can be discharged and I will see him in the office in 3 weeks and once his respiratory situation is resolved and he is back to his normal self, I will do a stress test for him. Explained this at length. He will be discharged today MMODL / IJN: [id number] /
--- NOTE | 2019-12-27 14:39 | P.CNPUL ---
History of Present Illness Consult date: 12/27/19 Reason for consult: dyspnea, cough, COPD, pneumonia Chief complaint: Shortness of breath and cough started 3-4 days ago History of present illness: This is a 54-year-old male with extensive history of smoking and nicotine use came to emergency department at [facility] on December 24 with chief complaints of chest pain that started the day he presented to the hospital patient did have been mostly on the left side of the chest describing to be more of a sharp in nature intensity almost 7-8 of 10 when he presented to hospital no radiation patient did have significantly shortness of breath with it did have have very minimal cough 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 Patient did have a chest x-ray which shows elevated left hemidiaphragm some infiltrate just above the diaphragm consulted for atelectasis or pneumonia patient was started on Zithromax has been admitted to hospital Patient did have COVID-19 her nasopharyngeal swab which came back negative and his CT of the chest on December 25 shows resolving infiltrate within the lingula. Today he is feeling much better with decreased cough and congestion Review of Systems All systems: negative Past Medical History Past Medical History: COPD Additional Past Medical History / Comment(s): DIVERTICULITIS, BACK PAIN History of Any Multi-Drug Resistant Organisms: None Reported Past Surgical History: Back Surgery, Orthopedic Surgery, Tonsillectomy Additional Past Surgical History / Comment(s): L5 S1 laminectomy Past Psychological History: No Psychological Hx Reported Smoking Status: Current every day smoker Past Alcohol Use History: None Reported Past Drug Use History: None Reported Medications and Allergies Home Medications Medication Instructions Recorded Confirmed Type Albuterol Inhaler [Ventolin Hfa 2 puff INHALATION RT-QID PRN 12/25/19 12/25/19 History Inhaler] Allergies Allergy/AdvReac Type Severity Reaction Status Date / Time amoxicillin [Amoxicillin] Allergy Rash/Hives Verified 12/25/19 19:39 Physical Exam Vitals: Vital Signs Temp Pulse Resp BP Pulse Ox 12/27/19 08:00 97.6 F 87 112/68 94 L 12/27/19 04:00 98.6 F 74 16 116/73 93 L 12/26/19 23:04 85 18 12/26/19 23:02 98.6 F 85 18 127/76 94 L 12/26/19 20:00 98.7 F 82 19 138/81 95 12/26/19 16:05 97.8 F 78 16 103/76 92 L 12/26/19 15:39 79 16 Intake and Output 12/26/19 12/27/19 12/27/19 22:59 06:59 14:59 Intake Total 480 310 360 Balance 480 310 360 Intake: IV 10 Invasive Line 1 10 Oral 480 300 360 Other: Voiding Method Toilet Toilet # Voids 2 1 1 # Bowel Movements 0 Weight 70.5 kg - Constitutional General appearance: average body habitus, cooperative, disheveled - EENT Eyes: EOMI, PERRLA Ears: bilateral: normal - Neck Carotids: bilateral: upstroke normal Thyroid: bilateral: normal size - Respiratory Respiratory: bilateral: wheezing - Cardiovascular Rhythm: regular Heart sounds: normal: S1, S2 - Gastrointestinal General gastrointestinal: normal bowel sounds, soft - Neurologic Neurologic: CNII-XII intact - Musculoskeletal Musculoskeletal: gait normal, generalized weakness, strength equal bilaterally - Psychiatric Psychiatric: A&O x's 3, appropriate affect, intact judgment & insight Results - Laboratory Findings CBC and BMP: 12/25/19 17:15 12/25/19 17:15 PT/INR, D-dimer PT 10.6 sec (9.0-12.0) 12/25/19 17:15 INR 1.0 (<1.2) 12/25/19 17:15 D-Dimer 0.38 mg/L FEU (<0.60) 12/25/19 17:15 Abnormal lab findings: Abnormal Labs 12/25/19 12/25/19 12/26/19 17:15 17:15 05:13 WBC 12.6 H Neutrophils # 7.9 H Sodium 135 L Glucose 144 H POC Glucose (mg/dL) C-Reactive Protein 10.6 H Cholesterol 288 H LDL Cholesterol, Calc 221 H 12/26/19 12/26/19 12/26/19 05:44 11:05 16:30 WBC Neutrophils # Sodium Glucose POC Glucose (mg/dL) 143 H 190 H 135 H C-Reactive Protein Cholesterol LDL Cholesterol, Calc 12/26/19 12/27/19 12/27/19 20:33 06:16 12:11 WBC Neutrophils # Sodium Glucose POC Glucose (mg/dL) 152 H 147 H 111 H C-Reactive Protein Cholesterol LDL Cholesterol, Calc - Diagnostic Findings Chest x-ray: report reviewed, image reviewed CT scan - chest: report reviewed, image reviewed (Finding as noted above) Assessment and Plan Assessment: Left lower lobe community-acquired pneumonia Left-sided chest pain likely related to pneumonia as well as musculoskeletal pain Suspected to have less likely covid 19 pneumonia COPD with acute exacerbation Smoking and nicotine use Plan: Continue broad-spectrum antibiotics Deep breathing exercises incentive spirometry Smoking cessation counseling advice has been given Crease activity as tolerated If remains stable possible discharge in next 24-48 hours Time with Patient: Greater than 30
[2019-12-27 15:13] VITALS: BP 131/71; PULSE 74
[2019-12-28] MEDS ORDERED: AZITHROMYCIN 500 MG TAB PO SCH (09:00)
--- NOTE | 2020-01-13 18:02 | DS ---
DISCHARGE SUMMARY DATE OF ADMISSION: 12/25/2019. DISCHARGE DATE: 12/27/2019 DISCHARGE MEDICATION: Albuterol inhaler 2 puffs q.4 hours p.r.n. is discharge medication. CONDITION: Stable. PROGNOSIS: Guarded. HOSPITAL COURSE: This is a white male who was admitted to the hospital for COPD, cough, congestion, pneumonia, and left-sided chest pain, pleuritic in nature. He had a mild elevated white count. He was admitted on azithromycin. Covid test was negative. CT of the chest shows infiltrate in the lingula. The patient improved over the next 24 to 48 hours. Cleared by pulmonology and Infectious Disease. Follow up as an outpatient. Smoking cessation counseling given. MMODL / IJN: [id number] /
== END 2019-12-27 16:28 | disposition home or self-care (01) ==
LOC: EC 16:54 → 3SCARD 19:45
PROVIDERS: ADMIT Family Medicine; ATTEND Family Medicine
DX: J44.0 Chronic obstructive pulmonary disease with (acute) lower respiratory infection (principal); J18.9 Pneumonia, unspecified organism; J44.1 Chronic obstructive pulmonary disease with (acute) exacerbation; Z03.818 Encounter for observation for suspected exposure to other biological agents ruled out; F17.210 Nicotine dependence, cigarettes, uncomplicated; E78.5 Hyperlipidemia, unspecified; E78.00 Pure hypercholesterolemia, unspecified; R61 Generalized hyperhidrosis; M54.9 Dorsalgia, unspecified; G89.29 Other chronic pain; R79.82 Elevated C-reactive protein (CRP); R09.89 Other specified symptoms and signs involving the circulatory and respiratory systems; Z79.899 Other long term (current) drug therapy; Z88.0 Allergy status to penicillin; Z87.19 Personal history of other diseases of the digestive system
CPT/HCPCS: 96376 ×2; 96365; 96366 ×2; 96372 ×2; 96368; 93005 ×2; 96361; 96375; 99285; 36415; 94760; 93306; 85379; 83880; 80061; 80053; 82728; 83605; 83615; 83735; 84484 ×2; 85025; 85610; 85730; 86140; 87502; 84145; 87635; 71045; 71260; G0378 ×3; J1644 ×2; J2920 ×2; J2930; J0456 ×2; J0696; Q9967

== ENCOUNTER 2020-01-02 11:47 | Inpatient (IN) | payer OTHER ==
[2020-01-02] MEDS ORDERED: ALBUTEROL HFA INHALER INHALATION STA (12:03)
--- NOTE | 2020-01-02 12:07 | ED ---
General Adult HPI - General Chief complaint: Shortness of Breath Stated complaint: recheck - SOB, cough Time Seen by Provider: 01/02/20 11:52 Source: patient, RN notes reviewed Mode of arrival: wheelchair Limitations: no limitations - History of Present Illness Initial comments: Patient is a pleasant 54-year-old male presenting to the emergency Department with complaints of cough and shortness of breath. Patient was in the hospital last week and discharged 6 days ago. Patient was starting to do better however today started feeling worse again. Patient recently finished his azithromycin. No fevers. Cough is dry nonproductive. Patient does have history of COPD. Patient states there is some mild tightness of his chest similar to previous. N o leg pain or leg swelling. - Related Data Home Medications Medication Instructions Recorded Confirmed Albuterol Inhaler [Ventolin Hfa 2 puff INHALATION RT-QID PRN 12/25/19 01/02/20 Inhaler] Allergies Allergy/AdvReac Type Severity Reaction Status Date / Time amoxicillin [Amoxicillin] Allergy Rash/Hives Verified 01/02/20 12:50 Review of Systems ROS Statement: Those systems with pertinent positive or pertinent negative responses have been documented in the HPI. ROS Other: All systems not noted in ROS Statement are negative. Constitutional: Denies: fever Eyes: Denies: eye pain ENT: Denies: ear pain Respiratory: Reports: cough, dyspnea Cardiovascular: Reports: as per HPI Endocrine: Reports: fatigue Gastrointestinal: Denies: abdominal pain Genitourinary: Denies: dysuria Musculoskeletal: Denies: back pain Skin: Denies: rash Neurological: Denies: weakness Past Medical History Past Medical History: COPD Additional Past Medical History / Comment(s): DIVERTICULITIS, BACK PAIN History of Any Multi-Drug Resistant Organisms: None Reported Past Surgical History: Back Surgery, Orthopedic Surgery, Tonsillectomy Additional Past Surgical History / Comment(s): L5 S1 laminectomy Past Psychological History: No Psychological Hx Reported Smoking Status: Current every day smoker Past Alcohol Use History: None Reported Past Drug Use History: None Reported General Exam Limitations: no limitations General appearance: alert, in no apparent distress Head exam: Present: normocephalic Eye exam: Present: normal appearance ENT exam: Present: normal oropharynx Neck exam: Present: normal inspection Respiratory exam: Present: rhonchi Cardiovascular Exam: Present: regular rate, normal rhythm Expanded Peripheral pulses: 2+: Dorsalis Pedis (R), Dorsalis Pedis (L) GI/Abdominal exam: Present: soft. Absent: tenderness Extremities exam: Present: normal inspection. Absent: pedal edema, calf tenderness Neurological exam: Present: alert Psychiatric exam: Present: normal affect, normal mood Skin exam: Present: normal color Course Vital Signs 01/02/20 11:50 Temperature 97.8 F Pulse Rate 90 Respiratory 18 Rate Blood Pressure 134/93 O2 Sat by Pulse 96 Oximetry - Reevaluation(s) Reevaluation #1: 01/02/20 14:37 Patient does not meet sepsis criteria at this time EKG Findings - EKG Comments: EKG Findings:: Normal sinus rhythm with a rate of 93. IN 116. QRS 90. QT 360. QTC 447. Normal axis. Normal QRS. No acute ST change Medical Decision Making - Medical Decision Making Patient reevaluated and resting comfortably in bed. Patient did not have significant improvement with albuterol. Patient updated on results. Case discussed in detail with Dr. Corbett, who will admit his patient. He requests no consults at this time. - Lab Data Result diagrams: 01/02/20 12:20 01/02/20 12:20 Lab Results 01/02/20 01/02/20 01/02/20 Range/Units 12:20 12:20 12:20 WBC 21.7 H (3.8-10.6) k/uL RBC 5.78 (4.30-5.90) m/uL Hgb 16.2 (13.0-17.5) gm/dL Hct 50.6 (39.0-53.0) % MCV 87.5 (80.0-100.0) fL MCH 28.1 (25.0-35.0) pg MCHC 32.1 (31.0-37.0) g/dL RDW 13.3 (11.5-15.5) % Plt Count 341 (150-450) k/uL Neutrophils % 71 % Lymphocytes % 17 % Monocytes % 8 % Eosinophils % 1 % Basophils % 1 % Neutrophils # 15.5 H (1.3-7.7) k/uL Lymphocytes # 3.7 (1.0-4.8) k/uL Monocytes # 1.7 H (0-1.0) k/uL Eosinophils # 0.3 (0-0.7) k/uL Basophils # 0.2 (0-0.2) k/uL PT 10.2 (9.0-12.0) sec INR 1.0 (<1.2) APTT 21.5 L (22.0-30.0) sec D-Dimer 0.28 (<0.60) mg/L FEU Sodium 135 L (137-145) mmol/L Potassium 4.6 (3.5-5.1) mmol/L Chloride 101 (98-107) mmol/L Carbon Dioxide 27 (22-30) mmol/L Anion Gap 7 mmol/L BUN 19 (9-20) mg/dL Creatinine 0.72 (0.66-1.25) mg/dL Est GFR (CKD-EPI)AfAm >90 (>60 ml/min/1.73 sqM) Est GFR (CKD-EPI)NonAf >90 (>60 ml/min/1.73 sqM) Glucose 107 H (74-99) mg/dL Plasma Lactic Acid Alec (0.7-2.0) mmol/L Calcium 9.9 (8.4-10.2) mg/dL Magnesium 1.9 (1.6-2.3) mg/dL Total Bilirubin 0.3 (0.2-1.3) mg/dL AST 33 (17-59) U/L ALT 55 H (4-49) U/L Alkaline Phosphatase 80 (38-126) U/L Lactate Dehydrogenase 472 (313-618) U/L Troponin I (0.000-0.034) ng/mL C-Reactive Protein <5.0 (<10.0) mg/L NT-Pro-B Natriuret Pep pg/mL Total Protein 7.6 (6.3-8.2) g/dL Albumin 4.5 (3.5-5.0) g/dL Coronavirus (PCR) (Not Detectd) Influenza Type A RNA Influenza Type B (PCR) 01/02/20 01/02/20 01/02/20 Range/Units 12:20 12:20 12:20 WBC (3.8-10.6) k/uL RBC (4.30-5.90) m/uL Hgb (13.0-17.5) gm/dL Hct (39.0-53.0) % MCV (80.0-100.0) fL MCH (25.0-35.0) pg MCHC (31.0-37.0) g/dL RDW (11.5-15.5) % Plt Count (150-450) k/uL Neutrophils % % Lymphocytes % % Monocytes % % Eosinophils % % Basophils % % Neutrophils # (1.3-7.7) k/uL Lymphocytes # (1.0-4.8) k/uL Monocytes # (0-1.0) k/uL Eosinophils # (0-0.7) k/uL Basophils # (0-0.2) k/uL PT (9.0-12.0) sec INR (<1.2) APTT (22.0-30.0) sec D-Dimer (<0.60) mg/L FEU Sodium (137-145) mmol/L Potassium (3.5-5.1) mmol/L Chloride (98-107) mmol/L Carbon Dioxide (22-30) mmol/L Anion Gap mmol/L BUN (9-20) mg/dL Creatinine (0.66-1.25) mg/dL Est GFR (CKD-EPI)AfAm (>60 ml/min/1.73 sqM) Est GFR (CKD-EPI)NonAf (>60 ml/min/1.73 sqM) Glucose (74-99) mg/dL Plasma Lactic Acid Alec 1.6 (0.7-2.0) mmol/L Calcium (8.4-10.2) mg/dL Magnesium (1.6-2.3) mg/dL Total Bilirubin (0.2-1.3) mg/dL AST (17-59) U/L ALT (4-49) U/L Alkaline Phosphatase (38-126) U/L Lactate Dehydrogenase (313-618) U/L Troponin I <0.012 (0.000-0.034) ng/mL C-Reactive Protein (<10.0) mg/L NT-Pro-B Natriuret Pep pg/mL Total Protein (6.3-8.2) g/dL Albumin (3.5-5.0) g/dL Coronavirus (PCR) Not Detected (Not Detectd) Influenza Type A RNA Cancelled Influenza Type B (PCR) Cancelled 01/02/20 Range/Units 12:20 WBC (3.8-10.6) k/uL RBC (4.30-5.90) m/uL Hgb (13.0-17.5) gm/dL Hct (39.0-53.0) % MCV (80.0-100.0) fL MCH (25.0-35.0) pg MCHC (31.0-37.0) g/dL RDW (11.5-15.5) % Plt Count (150-450) k/uL Neutrophils % % Lymphocytes % % Monocytes % % Eosinophils % % Basophils % % Neutrophils # (1.3-7.7) k/uL Lymphocytes # (1.0-4.8) k/uL Monocytes # (0-1.0) k/uL Eosinophils # (0-0.7) k/uL Basophils # (0-0.2) k/uL PT (9.0-12.0) sec INR (<1.2) APTT (22.0-30.0) sec D-Dimer (<0.60) mg/L FEU Sodium (137-145) mmol/L Potassium (3.5-5.1) mmol/L Chloride (98-107) mmol/L Carbon Dioxide (22-30) mmol/L Anion Gap mmol/L BUN (9-20) mg/dL Creatinine (0.66-1.25) mg/dL Est GFR (CKD-EPI)AfAm (>60 ml/min/1.73 sqM) Est GFR (CKD-EPI)NonAf (>60 ml/min/1.73 sqM) Glucose (74-99) mg/dL Plasma Lactic Acid Alec (0.7-2.0) mmol/L Calcium (8.4-10.2) mg/dL Magnesium (1.6-2.3) mg/dL Total Bilirubin (0.2-1.3) mg/dL AST (17-59) U/L ALT (4-49) U/L Alkaline Phosphatase (38-126) U/L Lactate Dehydrogenase (313-618) U/L Troponin I (0.000-0.034) ng/mL C-Reactive Protein (<10.0) mg/L NT-Pro-B Natriuret Pep 35 pg/mL Total Protein (6.3-8.2) g/dL Albumin (3.5-5.0) g/dL Coronavirus (PCR) (Not Detectd) Influenza Type A RNA Influenza Type B (PCR) - Radiology Data Radiology results: image reviewed (Chest x-ray shows some improvement of left lower lobe infiltrate) Disposition Clinical Impression: Pneumonia Disposition: ADMITTED IP TO THIS HOSP Is patient prescribed a controlled substance at d/c from ED?: No Referrals: Logan Corbett MD [Primary Care Provider] - 1-2 days Decision Time: 14:38
[2020-01-02 12:44] LABS: Basophils # (A) 0.2 k/uL (0-0.2); Basophils % (A) 1 %; Eosinophils # (A) 0.3 k/uL (0-0.7); Eosinophils % (A) 1 %; HCT 50.6 % (39.0-53.0); HGB 16.2 gm/dL (13.0-17.5); Lymphocytes # (A) 3.7 k/uL (1.0-4.8); Lymphocytes % (A) 17 %; MCH 28.1 pg (25.0-35.0); MCHC 32.1 g/dL (31.0-37.0); MCV 87.5 fL (80.0-100.0); Mean Platelet Volume 7.6; Monocytes # (A) 1.7 k/uL (0-1.0); Monocytes % (A) 8 %; Neutrophils # (A) 15.5 k/uL (1.3-7.7); Neutrophils % (A) 71 %; Platelet Count 341 k/uL (150-450); RBC 5.78 m/uL (4.30-5.90); RDW 13.3 % (11.5-15.5); WBC 21.7 k/uL (3.8-10.6)
[2020-01-02 12:55] LABS: ALT 55 U/L (4-49); AST 33 U/L (17-59); African American GFR (CKD) >90 (>60 ml/min/1.73 sqM); Albumin 4.5 g/dL (3.5-5.0); Alkaline Phosphatase 80 U/L (38-126); Anion Gap 7 mmol/L; Blood Urea Nitrogen 19 mg/dL (9-20); C Reactive Protein <5.0 mg/L (<10.0); Calcium 9.9 mg/dL (8.4-10.2); Carbon Dioxide 27 mmol/L (22-30); Chloride 101 mmol/L (98-107); Glucose 107 mg/dL (74-99); LDH 472 U/L (313-618); Magnesium 1.9 mg/dL (1.6-2.3); Non-African American GFR(CKD) >90 (>60 ml/min/1.73 sqM); Potassium 4.6 mmol/L (3.5-5.1); Sodium 135 mmol/L (137-145); Total Bilirubin 0.3 mg/dL (0.2-1.3); Total Protein 7.6 g/dL (6.3-8.2)
--- NOTE | 2020-01-02 12:59 | XR ---
EXAMINATION TYPE: XR chest 1V portable DATE OF EXAM: 01/02/2020 HISTORY: Shortness of breath. COMPARISON: 12/25/2019 TECHNIQUE: Single view of the chest is submitted. FINDINGS: Demonstrated are scattered senescent parenchymal change. Persistent but improving left lower lobe infiltrate and/or atelectasis. Chronic elevation left hemidi aphragm. The heart is stable. Hilar and mediastinal structures are within normal limits. Degenerative changes are seen of the dorsal spine. IMPRESSION: 1. Persistent but improving left lower lobe infiltrate and/or atelectasis.
[2020-01-02 13:12] LABS: D-Dimer 0.28 mg/L FEU (<0.60); Prothrombin Time 10.2 sec (9.0-12.0)
[2020-01-02 13:15] LABS: Partial Thromboplastin Time 21.5 sec (22.0-30.0)
[2020-01-02] MEDS ORDERED: IPRATROPIUM-ALBUTEROL 3 ML NEB INHALATION PRN (14:39)
[2020-01-02] MEDS ORDERED: LEVOFLOXACIN 750MG-D5W PMX 750 MG in DEXTROSE/WATER 1 150ML.BAG IVPB STA (14:39)
[2020-01-02] MEDS ORDERED: PNEUMONIA PROTOCOL UTILIZED 1 EACH MISC PO PRN (14:39)
[2020-01-02] MEDS: IPRATROPIUM-ALBUTEROL 3 ML NEB INHALATION SCH ×2 (15:10→20:39)
[2020-01-02] MEDS: SODIUM CHLORIDE 0.9% 1,000 ML IV SCH (15:27)
[2020-01-02] MEDS: AZTREONAM 2 GM in SODIUM CHLORIDE 0.9% 100 ML IVPB SCH ×2 (18:48→23:36)
[2020-01-02] MEDS: PANTOPRAZOLE 40 MG/10 ML VIAL IVP SCH (18:50)
[2020-01-02 18:51] LABS: Ferritin 174.4 ng/mL (22.0-322.0)
[2020-01-02] MEDS ORDERED: HYDROcodone/APAP 5-325MG 1 EACH TAB PO PRN (20:01)
[2020-01-02] MEDS: ACETAMINOPHEN TAB 325 MG TAB PO PRN (20:07)
[2020-01-03] MEDS: SODIUM CHLORIDE 0.9% 1,000 ML IV SCH ×3 (00:58→14:54)
[2020-01-03] MEDS: ACETAMINOPHEN TAB 325 MG TAB PO PRN ×2 (07:24→16:34)
[2020-01-03] MEDS: PANTOPRAZOLE 40 MG/10 ML VIAL IVP SCH (07:25)
[2020-01-03] MEDS: AZTREONAM 2 GM in SODIUM CHLORIDE 0.9% 100 ML IVPB SCH ×2 (07:26→16:34)
[2020-01-03] MEDS: IPRATROPIUM-ALBUTEROL 3 ML NEB INHALATION SCH ×4 (07:37→20:29)
[2020-01-03 08:07] LABS: HCT 47.3 % (39.0-53.0); HGB 15.5 gm/dL (13.0-17.5); MCHC 32.7 g/dL (31.0-37.0); MCV 88.8 fL (80.0-100.0); Mean Platelet Volume 7.5; Platelet Count 313 k/uL (150-450); RBC 5.33 m/uL (4.30-5.90); RDW 13.3 % (11.5-15.5); WBC 16.5 k/uL (3.8-10.6)
[2020-01-03 08:18] LABS: African American GFR (CKD) >90 (>60 ml/min/1.73 sqM); Anion Gap 8 mmol/L; Blood Urea Nitrogen 19 mg/dL (9-20); Carbon Dioxide 23 mmol/L (22-30); Chloride 103 mmol/L (98-107); Glucose 105 mg/dL (74-99); Non-African American GFR(CKD) >90 (>60 ml/min/1.73 sqM); Potassium 4.4 mmol/L (3.5-5.1); Sodium 134 mmol/L (137-145)
[2020-01-03 08:37] LABS: Eosinophils # (M) 0.33 k/uL (0-0.7); Lymphocytes # (M) 5.78 k/uL (1.0-4.8); Metamyelocytes # (M) 0.17 k/uL (0); Metamyelocytes % 1 %; Monocytes # (M) 2.31 k/uL (0-1.0); Myelocytes # (M) 0.17 k/uL (0); Myelocytes % 1 %; Neutrophils # (M) 8.09 k/uL (1.3-7.7); Neutrophils % (M) 49 %; Nucleated Red Blood Cells 0 /100 WBC (0-0); Total Cells Counted 200
--- NOTE | 2020-01-03 08:46 | P.CNPUL ---
History of Present Illness Consult date: 01/03/20 Reason for consult: dyspnea, chest pain, pneumonia Chief complaint: Shortness of breath and cough History of present illness: This is a 54-year-old male with history of COPD patient was in fact hospitalized a week ago for left lower lobe pneumonia was discharge has been finishing antibiotics as outpatient felt that shortness of breath and cough progressed also has some chest tightness bilaterally decided to come into the hospital is covert testing is negative, his chest x-ray shows slight improvement in infiltrate on the left side, his d-dimer was normal, sodium was slightly no, CBC leukocytosis of 21,700 and improved to 16.5 now today, pro-calcitonin LDH have been normal, so as C-reactive protein and ferritin levels a computed tomography scan of his chest and one week ago revealed elevated left hemidiaphragm lingular infiltrate, no pulmonary embolism reported Review of Systems All systems: negative Past Medical History Past Medical History: COPD Additional Past Medical History / Comment(s): DIVERTICULITIS, BACK PAIN History of Any Multi-Drug Resistant Organisms: None Reported Past Surgical History: Back Surgery, Bowel Resection, Orthopedic Surgery, Tonsillectomy Additional Past Surgical History / Comment(s): L5 S1 laminectomy Past Psychological History: No Psychological Hx Reported Smoking Status: Current every day smoker Past Alcohol Use History: None Reported Past Drug Use History: None Reported - Past Family History Mother Family Medical History: Cancer, Diabetes Mellitus Father Family Medical History: Coronary Artery Disease (CAD) Brother(s) Additional Family Medical History / Comment(s): kidney and heart disease Medications and Allergies Home Medications Medication Instructions Recorded Confirmed Type Albuterol Inhaler [Ventolin Hfa 2 puff INHALATION RT-QID PRN 12/25/19 01/02/20 History Inhaler] Allergies Allergy/AdvReac Type Severity Reaction Status Date / Time amoxicillin [Amoxicillin] Allergy Rash/Hives Verified 01/02/20 12:50 vancomycin Allergy Rash/Hives Verified 01/02/20 16:31 Physical Exam Vitals: Vital Signs Temp Pulse Pulse Resp BP BP Pulse Ox 01/03/20 07:53 71 01/03/20 07:39 74 94 L 01/03/20 07:10 98.0 F 67 20 127/80 96 01/03/20 00:12 97.6 F 74 14 113/73 96 01/02/20 20:46 60 01/02/20 20:39 56 L 01/02/20 18:47 98.1 F 73 14 126/76 93 L 01/02/20 17:35 97.7 F 52 L 16 112/68 95 01/02/20 15:12 90 01/02/20 15:11 90 01/02/20 15:00 85 18 119/97 94 L 01/02/20 14:30 89 16 125/85 94 L 01/02/20 14:00 96 13 123/91 94 L 01/02/20 13:30 93 13 132/95 93 L 01/02/20 13:00 93 14 143/106 94 L 01/02/20 12:30 96 22 147/89 94 L 01/02/20 12:01 96 01/02/20 11:50 97.8 F 90 18 134/93 96 Intake and Output 01/02/20 01/03/20 01/03/20 22:59 06:59 14:59 Other: Voiding Method Toilet Toilet Toilet # Voids 1 1 Weight 95.254 kg - Constitutional General appearance: average body habitus, cooperative - EENT Eyes: EOMI, PERRLA Ears: bilateral: normal - Neck Neck: normal ROM Carotids: bilateral: upstroke normal Thyroid: bilateral: normal size - Respiratory Respiratory: bilateral: CTA - Cardiovascular Rhythm: regular Heart sounds: normal: S1, S2 - Gastrointestinal General gastrointestinal: soft - Neurologic Neurologic: CNII-XII intact - Musculoskeletal Musculoskeletal: gait normal, generalized weakness, strength equal bilaterally Results - Laboratory Findings CBC and BMP: 01/03/20 07:48 01/03/20 07:48 PT/INR, D-dimer PT 10.2 sec (9.0-12.0) 01/02/20 12:20 INR 1.0 (<1.2) 01/02/20 12:20 D-Dimer 0.28 mg/L FEU (<0.60) 01/02/20 12:20 Abnormal lab findings: Abnormal Labs 01/02/20 01/02/20 01/02/20 12:20 12:20 12:20 WBC 21.7 H Neutrophils # 15.5 H Monocytes # 1.7 H APTT 21.5 L Sodium 135 L Glucose 107 H ALT 55 H 01/03/20 01/03/20 07:48 07:48 WBC 16.5 H Neutrophils # Monocytes # APTT Sodium 134 L Glucose 105 H ALT - Diagnostic Findings Chest x-ray: report reviewed, image reviewed CT scan - chest: report reviewed, image reviewed (Finding as noted above) Assessment and Plan Assessment: Left-sided pneumonia Left-sided chest pain likely due to pneumonia/musculoskeletal chest pain Baseline COPD History of arthritis status post back surgery Smoking and nicotine use Plan: Broad-spectrum antibiotics Gentle hydration Follow clinical course closely Continue bronchodilator Pain medicine Further plan of care as per clinical response of the patient Time with Patient: Greater than 30
--- NOTE | 2020-01-03 09:55 | XR ---
EXAMINATION TYPE: XR chest 2V DATE OF EXAM: 01/03/2020 HISTORY: pneumonia. REFERENCE: Previous study dated 01/03/2020. FINDINGS: There is elevation of the left hemidiaphragm. There continues to be some minimal left basil ar airspace disease. The right lung is essentially clear. Heart size is normal. No definite pleural f luid is seen. IMPRESSION: MARKED IMPROVEMENT IN THE APPEARANCE OF THE LUNGS WITH MINIMAL RESIDUAL ATELECTASIS OR INFLAMMATORY C HANGE AT THE LEFT LUNG BASE.
--- NOTE | 2020-01-03 10:34 | HP ---
HISTORY AND PHYSICAL DATE OF SERVICE: 01/02/2020 54 -year-old white male with COPD. Hospitalized a week ago with left lower lobe pneumonia, finished. Sent home. He had worsening chest tightness. Came back to the hospital. Covid test is negative. Chest x-ray shows improvement. D-dimer is normal, [place] [address]. He is short of breath. His calcitonin and LDH were normal. CRP, CT of chest 1 week ago showed lingular infiltrate. No PE. PAST MEDICAL HISTORY: COPD, diverticulitis, orthopedic surgery, tonsillectomy. SOCIAL HISTORY: Current everyday smoker. FAMILY HISTORY: Mother with cancer, diabetes mellitus. Father coronary artery disease. Brother, kidney and renal disease. MEDICATIONS: Home medicines albuterol. ALLERGIES: AMOXICILLIN, VANCOMYCIN. PHYSICAL EXAM: Vital signs: Temperature 97 to 98, pulse is 70s to 90, respiratory 18-22, blood pressure is 112-127 over 60s to 80s. O2 94-96 percent on room air. CONSTITUTIONAL: She is average body habitus, cooperative. Pupils equal, round, reactive. NECK: Supple. LUNGS mild wheeze, otherwise clear. CARDIAC: Regular rate and rhythm. ABDOMEN: GI soft. NEUROLOGIC: Cranial nerves are intact. MUSCULOSKELETAL: Gait normal. LAB: Show white count 16.5, hemoglobin 15.5, sodium 134, potassium 4.4, BUN is 19, creatinine 0.74. D-dimer 0.28. ASSESSMENT: 1. Left-sided pneumonia, left-sided chest pain secondary to pneumonia. 2. Musculoskeletal chest pain. 3. Chronic obstructive pulmonary disease. 4. Osteoarthritis. 5. Nicotine addiction. Continue with bronchodilators, pain medicine, hydration, antibiotics. Please see further orders. MMODL / IJN: [id number] /
[2020-01-03] MEDS: guaiFENesin 600 MG TABLET.ER PO SCH ×2 (10:52→21:02)
[2020-01-03] MEDS: LEVOFLOXACIN 750MG-D5W PMX 750 MG in DEXTROSE/WATER 1 150ML.BAG IVPB SCH (17:51)
[2020-01-04] MEDS: AZTREONAM 2 GM in SODIUM CHLORIDE 0.9% 100 ML IVPB SCH ×3 (00:07→15:38)
[2020-01-04] MEDS: SODIUM CHLORIDE 0.9% 1,000 ML IV SCH ×2 (00:09→15:38)
[2020-01-04] MEDS: IPRATROPIUM-ALBUTEROL 3 ML NEB INHALATION SCH ×4 (07:26→19:52)
[2020-01-04] MEDS: guaiFENesin 600 MG TABLET.ER PO SCH ×2 (09:24→21:32)
[2020-01-04] MEDS: PANTOPRAZOLE 40 MG/10 ML VIAL IVP SCH (09:24)
--- NOTE | 2020-01-04 11:59 | P.PN ---
Subjective Progress Note Date: 01/04/20 Principal diagnosis: Left-sided pneumonia Left-sided chest pain likely due to pneumonia/musculoskeletal chest pain Baseline COPD History of arthritis status post back surgery Smoking and nicotine use 01/04/2020, patient seen and evaluated examined during the rounds serge torres shortness of breath has improved though, breathing improved as well. In the left-sided chest not felt, but however patient is still not feeling back to normal, will check an another chest x-ray tomorrow, he is afebrile with stable hemodynamics This is a 54-year-old male with history of COPD patient was in fact hospitalized a week ago for left lower lobe pneumonia was discharge has been finishing antibiotics as outpatient felt that shortness of breath and cough progressed also has some chest tightness bilaterally decided to come into the hospital is covert testing is negative, his chest x-ray shows slight improvement in infiltrate on the left side, his d-dimer was normal, sodium was slightly no, CBC leukocytosis of 21,700 and improved to 16.5 now today, pro-calcitonin LDH have been normal, so as C-reactive protein and ferritin levels a computed tomography scan of his chest and one week ago revealed elevated left hemidiaphragm lingular infiltrate, no pulmonary embolism reported Objective - Vital Signs Vital signs: Vital Signs Temp 97.9 F 01/04/20 07:00 Pulse 70 01/04/20 11:44 Resp 18 01/04/20 07:00 BP 125/80 01/04/20 07:00 Pulse Ox 93 L 01/04/20 07:00 Intake & Output 01/03/20 01/04/20 01/04/20 18:59 06:59 18:59 Intake Total 800 400 296 Balance 800 400 296 Intake: IV 800 Sodium Chloride 0.9% 1, 800 000 ml @ 100 mls/hr IV . Q10H JONATHAN Rx#:[id number] Intake, IV Titration 400 Amount Sodium Chloride 0.9% 1, 400 000 ml @ 100 mls/hr IV . Q10H JONATHAN Rx#:[id number] Oral 296 Other: Voiding Method Toilet Toilet - Exam - Constitutional General appearance: average body habitus, cooperative - EENT Eyes: EOMI, PERRLA Ears: bilateral: normal - Neck Neck: normal ROM Carotids: bilateral: upstroke normal Thyroid: bilateral: normal size - Respiratory Respiratory: bilateral: CTA - Cardiovascular Rhythm: regular Heart sounds: normal: S1, S2 - Gastrointestinal General gastrointestinal: soft - Neurologic Neurologic: CNII-XII intact - Musculoskeletal Musculoskeletal: gait normal, generalized weakness, strength equal bilaterally - Labs CBC & Chem 7: 01/03/20 07:48 01/03/20 07:48 Labs: Microbiology - Last 24 Hours (Table) 01/02/20 12:20 Blood Culture - Preliminary Blood No Growth after 24 hours Assessment and Plan Assessment: Left-sided pneumonia Left-sided chest pain likely due to pneumonia/musculoskeletal chest pain Baseline COPD History of arthritis status post back surgery Smoking and nicotine use Plan: Broad-spectrum antibiotics Gentle hydration Follow clinical course closely Continue bronchodilator Pain medicine Repeat chest x-ray in the morning Further plan of care as per clinical response of the patient Time with Patient: Greater than 30
--- NOTE | 2020-01-04 12:25 | PN ---
PROGRESS NOTE 54-year-old white male with pneumonia. Cardiovascular S1-S2. Lungs transmitted upper airway sounds. Hematology negative Homans. Psych fair mood and affect. ASSESSMENT: Community-acquired pneumonia, possibly hospital acquired, left upper lobe. Continue broad-spectrum antibiotics for drug-resistant pneumonia. Continue with breathing treatments. Please see further orders. Prognosis guarded. MMODL / IJN: [id number] /
[2020-01-04] MEDS: LEVOFLOXACIN 750MG-D5W PMX 750 MG in DEXTROSE/WATER 1 150ML.BAG IVPB SCH (17:29)
[2020-01-05] MEDS: SODIUM CHLORIDE 0.9% 1,000 ML IV SCH ×3 (01:06→23:36)
[2020-01-05] MEDS: AZTREONAM 2 GM in SODIUM CHLORIDE 0.9% 100 ML IVPB SCH ×4 (01:06→23:37)
--- NOTE | 2020-01-05 01:33 | PN ---
PROGRESS NOTE This 54-year-old white male, community-acquired pneumonia. No chest pain. Vital signs stable and reviewed. CARDIOVASCULAR: S1, S2 LUNGS: Scattered rhonchi and wheeze. HEMATOLOGY: Negative Homans. PSYCH: Fair mood and affect. ASSESSMENT: Community-acquired pneumonia, responded to IV antibiotics, updraft treatments, steroids. Possible discharge home tomorrow. He is improving every day on a daily basis. MMODL / IJN: [id number] /
[2020-01-05] MEDS: IPRATROPIUM-ALBUTEROL 3 ML NEB INHALATION SCH ×4 (07:38→19:42)
--- NOTE | 2020-01-05 07:38 | XR ---
EXAMINATION TYPE: XR chest 1V DATE OF EXAM: 01/05/2020 COMPARISON: 12/25/2019 and 01/03/2020 HISTORY: Possible pneumonia. Shortness of breath. TECHNIQUE: Single frontal view of the chest is obtained. FINDINGS: Platelike left basilar atelectasis is seen with continued elevation of the left hemidiaphr agm. Right lung is again clear. No new pleural effusion or pneumothorax. The cardiac silhouette size is within normal limits. The osseous structures are intact. IMPRESSION: Platelike left basilar atelectasis and continued left hemidiaphragm elevation. No new fo david consolidation.
[2020-01-05] MEDS: PANTOPRAZOLE 40 MG TABLET PO SCH (08:03)
[2020-01-05] MEDS: guaiFENesin 600 MG TABLET.ER PO SCH ×2 (08:03→20:01)
--- NOTE | 2020-01-05 10:09 | P.PN ---
Subjective Progress Note Date: 01/05/20 Principal diagnosis: Left-sided pneumonia Left-sided chest pain likely due to pneumonia/musculoskeletal chest pain Baseline COPD History of arthritis status post back surgery Smoking and nicotine use 01/05/2020, patient is sitting upright on the bed breathing comfortably cuff congestion is improved from yesterday improved denies any chest pain remains on broad-spectrum antibiotics his chest x-ray repeat reviewed significant improvement in left lower lobe infiltrate has been noted, will observe him overnight and if remains stable can be discharged home on oral antibiotics tomorrow 01/04/2020, patient seen and evaluated examined during the rounds cuff congestion shortness of breath has improved though, breathing improved as well. In the left-sided chest not felt, but however patient is still not feeling back to normal, will check an another chest x-ray tomorrow, he is afebrile with stable hemodynamics This is a 54-year-old male with history of COPD patient was in fact hospitalized a week ago for left lower lobe pneumonia was discharge has been finishing antib iotics as outpatient felt that shortness of breath and cough progressed also has some chest tightness bilaterally decided to come into the hospital is covert testing is negative, his chest x-ray shows slight improvement in infiltrate on the left side, his d-dimer was normal, sodium was slightly no, CBC leukocytosis of 21,700 and improved to 16.5 now today, pro-calcitonin LDH have been normal, so as C-reactive protein and ferritin levels a computed tomography scan of his chest and one week ago revealed elevated left hemidiaphragm lingular infiltrate, no pulmonary embolism reported Objective - Vital Signs Vital signs: Vital Signs Temp 97.5 F L 01/05/20 07:00 Pulse 72 01/05/20 07:49 Resp 16 01/05/20 07:00 BP 113/77 01/05/20 07:00 Pulse Ox 94 L 01/05/20 07:00 Intake & Output 01/04/20 01/05/20 01/05/20 18:59 06:59 18:59 Intake Total 768 360 Balance 768 360 Intake: Oral 768 360 Other: Voiding Method Toilet Toilet # Voids 1 1 - Exam - Constitutional General appearance: average body habitus, cooperative - EENT Eyes: EOMI, PERRLA Ears: bilateral: normal - Neck Neck: normal ROM Carotids: bilateral: upstroke normal Thyroid: bilateral: normal size - Respiratory Respiratory: bilateral: CTA - Cardiovascular Rhythm: regular Heart sounds: normal: S1, S2 - Gastrointestinal General gastrointestinal: soft - Neurologic Neurologic: CNII-XII intact - Musculoskeletal Musculoskeletal: gait normal, generalized weakness, strength equal bilaterally - Labs CBC & Chem 7: 01/03/20 07:48 01/03/20 07:48 Labs: Microbiology - Last 24 Hours (Table) 01/02/20 12:20 Blood Culture - Preliminary Blood No Growth after 48 hours Assessment and Plan Assessment: Left-sided pneumonia Left-sided chest pain likely due to pneumonia/musculoskeletal chest pain Baseline COPD History of arthritis status post back surgery Smoking and nicotine use Plan: Broad-spectrum antibiotics Gentle hydration Follow clinical course closely Continue bronchodilator Pain medicine Repeat chest x-ray in the morning reviewed with finding as noted above Further plan of care as per clinical response of the patient Time with Patient: Greater than 30
--- NOTE | 2020-01-05 15:10 | P.PN ---
Subjective Progress Note Date: 01/05/20 This is a 54-year-old gentleman admitted with community-acquired pneumonia and multiple other medical issues. Maintained on IV antibiotics of Azactam and oral levaquin, nebulized bronchodilators with significant clinical improvement. Chest x-ray reporting left basilar atelectasis, continued left hemidiaphragm elevation with no new focal consolidation. Afebrile maintaining O2 sats in the mid 90s on room air. Denies chest pain, palpitations or increasing shortness of breath. Objective - Vital Signs Vital signs: Vital Signs Temp 97.5 F L 01/05/20 07:00 Pulse 72 01/05/20 07:49 Resp 16 01/05/20 07:00 BP 113/77 01/05/20 07:00 Pulse Ox 94 L 01/05/20 07:00 Intake & Output 01/04/20 01/05/20 01/05/20 18:59 06:59 18:59 Intake Total 768 360 Balance 768 360 Intake: Oral 768 360 Other: Voiding Method Toilet Toilet # Voids 1 1 - Exam PHYSICAL EXAM: VITAL SIGNS: As above GENERAL: Sitting up in bed, no acute distress HEENT: Conjunctivae normal. eyes normal. NECK: No JVD. No thyroid enlargement. No LNs CARDIOVASCULAR: S1, S2 regular. No murmur RESPIRATION: Breath sounds diminished in the bases. Scattered rhonchi, occasional expiratory wheeze. ABDOMEN: Soft, nontender . No guarding. no masses palpable. Bowel sounds heard. LEGS: No edema. no swelling PSYCHIATRY: Alert and oriented X3, mood and affect normal. NERVOUS SYSTEM: Cranial N 2-12 grossly normal. Moves all 4 limbs. No focal deficits. Strength and sensation grossly intact.. Skin: no rash - Labs CBC & Chem 7: 01/03/20 07:48 01/03/20 07:48 Labs: Microbiology - Last 24 Hours (Table) 01/02/20 12:20 Blood Culture - Preliminary Blood No Growth after 48 hours Assessment and Plan Assessment: Acute left lower lobe pneumonia, community acquired COPD, baseline Ongoing nicotine dependence Plan: Continue on current medication regime ,monitoring and symptomatic treatment. Maintain IV antibiotics, nebulized bronchodilators. Smoking cessation reinforced. Increase ambulation as tolerated. Discharge planning in progress for tomorrow pending pulmonary clearance. The impression and plan of care has been dictated as directed. : I performed a history and examination of this patient, discussed the same with the dictator. I agree with the dictator's note ,documented as a scribe. Any additional findings or plans will be noted.
[2020-01-05] MEDS ORDERED: LEVOFLOXACIN 750 MG TAB PO SCH (16:00)
[2020-01-05 20:04] VITALS: RESP 18
[2020-01-06 07:17] LABS: Basophils % (A) 0 %; Eosinophils # (A) 0.2 k/uL (0-0.7); Eosinophils % (A) 1 %; Lymphocytes # (A) 2.9 k/uL (1.0-4.8); Lymphocytes % (A) 21 %; MCH 28.4 pg (25.0-35.0); MCHC 32.6 g/dL (31.0-37.0); Mean Platelet Volume 7.4; Monocytes # (A) 1.1 k/uL (0-1.0); Monocytes % (A) 8 %; Neutrophils % (A) 67 %; Platelet Count 249 k/uL (150-450); RBC 5.28 m/uL (4.30-5.90); RDW 13.1 % (11.5-15.5); WBC 13.5 k/uL (3.8-10.6)
[2020-01-06 07:25] LABS: African American GFR (CKD) >90 (>60 ml/min/1.73 sqM); Anion Gap 6 mmol/L; Blood Urea Nitrogen 15 mg/dL (9-20); Calcium 9.1 mg/dL (8.4-10.2); Carbon Dioxide 22 mmol/L (22-30); Chloride 107 mmol/L (98-107); Glucose 87 mg/dL (74-99); Non-African American GFR(CKD) >90 (>60 ml/min/1.73 sqM); Potassium 4.3 mmol/L (3.5-5.1); Sodium 135 mmol/L (137-145)
[2020-01-06 08:04] VITALS: BP 115/73; TEMP 98.1
[2020-01-06] MEDS: IPRATROPIUM-ALBUTEROL 3 ML NEB INHALATION SCH (08:06)
--- NOTE | 2020-01-06 08:30 | P.PN ---
Subjective Progress Note Date: 01/06/20 Principal diagnosis: Left-sided pneumonia Left-sided chest pain likely due to pneumonia/musculoskeletal chest pain Baseline COPD History of arthritis status post back surgery Smoking and nicotine use 01/06/2020 patient seen and evaluated examined reviewed medications reviewed as Discussed with the Patient at Length As Suggested a Significant, Patient Is Responding Well with Antibiotic Clinically and Radiographically Improving As Patient Is Discharged Home with oral antibiotics 01/05/2020, patient is sitting upright on the bed breathing comfortably cuff congestion is improved from yesterday improved denies any chest pain remains on broad-spectrum antibiotics his chest x-ray repeat reviewed significant improvement in left lower lobe infiltrate has been noted, will observe him overnight and if remains stable can be discharged home on oral antibiotics tomorrow 01/04/2020, patient seen and evaluated examined during the rounds cuff congestion shortness of breath has improved though, breathing improved as well. In the left-sided chest not felt, but however patient is still not feeling back to normal, will check an another chest x-ray tomorrow, he is afebrile with stable hemodynamics This is a 54-year-old male with history of COPD patient was in fact hospitalized a week ago for left lower lobe pneumonia was discharge has been finishing antibiotics as outpatient felt that shortness of breath and cough progressed also has some chest tightness bilaterally decided to come into the hospital is covert testing is negative, his chest x-ray shows slight improvement in infiltrate on the left side, his d-dimer was normal, sodium was slightly no, CBC leukocytosis of 21,700 and improved to 16.5 now today, pro-calcitonin LDH have been normal, so as C-reactive protein and ferritin levels a computed tomography scan of his chest and one week ago revealed elevated left hemidiaphragm lingular infiltrate, no pulmonary embolism reported Objective - Vital Signs Vital signs: Vital Signs Temp 98.1 F 01/06/20 07:29 Pulse 76 01/06/20 08:16 Resp 18 01/06/20 07:29 BP 115/73 01/06/20 07:29 Pulse Ox 92 L 01/06/20 07:29 Intake & Output 01/05/20 01/06/20 01/06/20 18:59 06:59 18:59 Intake Total 1910 200 440 Balance 1910 200 440 Intake: Intake, IV Titration 650 200 Amount Aztreonam 2 gm In Sodium 100 Chloride 0.9% 100 ml @ 100 mls/hr IVPB Q8HR [facility] Rx#:[id number] Levofloxacin 750Mg-D5w 150 Pmx 750 mg In Dextrose/ Water 1 150ml.bag @ 100 mls/hr IVPB Q24H [facility] Rx#: [id number] Sodium Chloride 0.9% 1, 400 200 000 ml @ 100 mls/hr IV . Q10H [facility] Rx#:[id number] Oral 1260 440 Other: Voiding Method Toilet - Exam - Constitutional General appearance: average body habitus, cooperative - EENT Eyes: EOMI, PERRLA Ears: bilateral: normal - Neck Neck: normal ROM Carotids: bilateral: upstroke normal Thyroid: bilateral: normal size - Respiratory Respiratory: bilateral: CTA - Cardiovascular Rhythm: regular Heart sounds: normal: S1, S2 - Gastrointestinal General gastrointestinal: soft - Neurologic Neurologic: CNII-XII intact - Musculoskeletal Musculoskeletal: gait normal, generalized weakness, strength equal bilaterally - Labs CBC & Chem 7: 01/06/20 06:44 01/06/20 06:44 Labs: Abnormal Lab Results - Last 24 Hours (Table) 01/06/20 01/06/20 Range/Units 06:44 06:44 WBC 13.5 H (3.8-10.6) k/uL Neutrophils # 9.0 H (1.3-7.7) k/uL Monocytes # 1.1 H (0-1.0) k/uL Sodium 135 L (137-145) mmol/L Microbiology - Last 24 Hours (Table) 01/02/20 12:20 Blood Culture - Preliminary Blood No Growth after 72 hours Assessment and Plan Assessment: Left-sided pneumonia Left-sided chest pain likely due to pneumonia/musculoskeletal chest pain Baseline COPD History of arthritis status post back surgery Smoking and nicotine use Plan: Broad-spectrum antibiotics Gentle hydration Follow clinical course closely Continue bronchodilator Pain medicine Repeat chest x-ray reviewed Agree with discharge planning from pulmonary standpoint on oral antibiotics follow up as outpatient Further plan of care as per clinical response of the patient Time with Patient: Greater than 30
[2020-01-06] MEDS: guaiFENesin 600 MG TABLET.ER PO SCH (09:07)
[2020-01-06] MEDS: AZTREONAM 2 GM in SODIUM CHLORIDE 0.9% 100 ML IVPB SCH (09:07)
[2020-01-06] MEDS: PANTOPRAZOLE 40 MG TABLET PO SCH (09:08)
[2020-01-06 09:15] VITALS: PULSE 82
--- NOTE | 2020-01-06 17:22 | P.DS ---
Providers Date of admission: 01/04/20 14:21 Expected date of discharge: 01/06/20 Attending physician: Logan Corbett Consults: 01/02/20 16:54 Consult Physician Routine Consulting Provider: Shahzad Freitas Consult Reason/Comments: pneumonia Do you want consulting provider notified?: Yes [facility] Hospital Course: Final Diagnoses: Acute left lower lobe pneumonia, community acquired COPD, baseline Ongoing nicotine dependence Hospital course:This is a 54-year-old gentleman admitted with community-acquired pneumonia and multiple other medical issues. Maintained on IV antibiotics of Azactam and oral levaquin, nebulized bronchodilators with significant clinical improvement. Chest x-ray reporting left basilar atelectasis, continued left hemidiaphragm elevation with no new focal consolidation. Afebrile maintaining O2 sats in the mid 90s on room air. Denies chest pain, palpitations or increasing shortness of breath. Maintained on IV antibiotics, nebulized bronchodilators with significant clinical improvement. Cleared by pulmonary for discharge. Smoking cessation reinforced. Patient is being discharged home in stable condition with guarded prognosis. The impression and plan of care has been dictated as directed. : I performed a history and examination of this patient, discussed the same with the dictator. I agree with the dictator's note ,documented as a scribe. Any additional findings or plans will be noted. Patient Condition at Discharge: Stable Plan - Discharge Summary Discharge Rx Participant: Yes New Discharge Prescriptions: New Levofloxacin [Levaquin] 750 mg PO DAILY@1600 #5 tab guaiFENesin [Mucinex] 1,200 mg PO Q12HR #0 tablet.er Pantoprazole [Protonix] 40 mg PO DAILY #15 tablet. Continue Albuterol Inhaler [Ventolin Hfa Inhaler] 2 puff INHALATION RT-QID PRN PRN Reason: Shortness Of Breath Discharge Medication List Albuterol Inhaler [Ventolin Hfa Inhaler] 2 puff INHALATION RT-QID PRN 12/25/19 [History] Levofloxacin [Levaquin] 750 mg PO DAILY@1600 #5 tab 01/06/20 [Rx] Pantoprazole [Protonix] 40 mg PO DAILY #15 tablet. 01/06/20 [Rx] guaiFENesin [Mucinex] 1,200 mg PO Q12HR #0 tablet.er 01/06/20 [Rx] Follow up Appointment(s)/Referral(s): Logan Cobrett MD [Primary Care Provider] - 01/09/20 3:00 pm (Please pickler helper paperwork from office before appointment to fill out.) Shahzad Freitas MD [STAFF PHYSICIAN] - 01/12/20 11:45 am (This will be a telemedicine call they will send a llink to you) Ambulatory/Diagnostic Orders: Complete Blood Count w/diff [LAB.AMB] Time Frame: 3 Days, Location: None Selected Patient Instructions/Handouts: Viral Pneumonia (GEN) Discharge Disposition: HOME SELF-CARE
== END 2020-01-06 10:52 | disposition home or self-care (01) | DRG 194 ==
LOC: EC 11:47 → 4SSUR 14:39 → OBSVTOIN 01-04 14:21
PROVIDERS: ADMIT Family Medicine; ATTEND Family Medicine
DX: J18.9 Pneumonia, unspecified organism (principal); J44.0 Chronic obstructive pulmonary disease with (acute) lower respiratory infection; J98.11 Atelectasis; F17.200 Nicotine dependence, unspecified, uncomplicated; M19.90 Unspecified osteoarthritis, unspecified site; K57.90 Diverticulosis of intestine, part unspecified, without perforation or abscess without bleeding; Z20.828 Contact with and (suspected) exposure to other viral communicable diseases; R07.89 Other chest pain; Z79.899 Other long term (current) drug therapy; Z88.1 Allergy status to other antibiotic agents; Z88.0 Allergy status to penicillin; Z80.9 Family history of malignant neoplasm, unspecified; Z82.49 Family history of ischemic heart disease and other diseases of the circulatory system; Z83.3 Family history of diabetes mellitus
CPT/HCPCS: 36415; 71045; 71046; 80048; 80053; 82728; 83605; 83615; 83735; 83880; 84145; 84484; 85025; 85379; 85610; 85730; 86140; 87040; 87635; 93005; 94640; 94667; 94668; 94760; 96365; 99285

== ENCOUNTER → 2020-05-11 | Outpatient (CLI) | payer OTHER ==
[~2020-05-11] MED LIST: REGADENOSON 0.4 MG/5 ML SYRINGE IV ONE
--- NOTE | 2020-05-11 15:50 | NM ---
EXAMINATION TYPE: NM stress lexiscan cardiolite DATE OF EXAM: 05/11/2020 COMPARISON: 01/05/2020 chest radiograph HISTORY: Dyspnea TECHNIQUE: After the intravenous administration of 9.8 mCi Tc 99m Sestamibi - Cardiolite resting SPE CT images acquired 45 minutes post injection. The patient received 0.4mg Lexiscan, 24.0 mCi Tc 99m Sestamibi - Stress images obtained [address] injection FINDINGS: Review of stress and rest SPECT images demonstrates no distinct perfusion abnormality. Activity seen within the adjacent elevated left hemidiaphragm. Gated analysis shows normal wall motion with an est imated left ventricular ejection fraction of 53 %. TID 0.98 IMPRESSION: 1. No scintigraphic evidence for reversible ischemia. 2. Ejection fraction 53%.
--- NOTE | 2020-05-12 10:55 | EST ---
Stress Test Results/Findings: Exam Performed: NM stress lexiscan cardiolite Exam Date: 05/11/20 Reason for Exam: DYSPNEA Height: 6 ft 1 in Weight: 215 kg Protocol: LEXISCAN Stage: NA Duration of Exercise: NA Resting Heart Rate: 80 Resting Blood Pressure: 112/73 Maximum Achieved Heart Rate: 108 Maximum Achieved Blood Pressure: 116/79 85% PMHR: NA 100% PMHR: NA METS: NA Technologist Comment: Stress Test Results/Findings: At baseline patient's EKG shows sinus rhythm with a heart rate of 80 bpm with normal axis and no significant ST or T-wave abnormalities. With peak infusion of Lexiscan there are no significant ST or T-wave abnormalities. Conclusions: 1. Normal EKG response to Lexiscan infusion without significant ST or T-wave abnormalities. 2. Nuclear imaging reported separately. [facility]
== END | disposition home or self-care (01) ==
LOC: RADNMMAIN 08:02
PROVIDERS: ATTEND Family Medicine
DX: R06.00 Dyspnea, unspecified (principal)
CPT/HCPCS: 93017; 78452; A9500; J2785

== ENCOUNTER 2020-05-15 13:40 | Emergency (ER) | payer OTHER ==
[2020-05-15 13:46] VITALS: RESP 18; TEMP 98.1
[2020-05-15 14:55] VITALS: BP 140/93; PULSE 74
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
[2020-05-15] MEDS ORDERED: HYDROcodone/APAP 5-325MG 1 EACH TAB PO STA (15:30)
[2020-05-15] MEDS ORDERED: ACET/COD 300 MG/30 MG STARTER PACK 6 TAB BTL PO STA (15:34)
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
== END 2020-05-15 15:43 | disposition home or self-care (01) ==
LOC: EC 13:40
DX: M54.2 Cervicalgia (principal); M43.6 Torticollis; J44.9 Chronic obstructive pulmonary disease, unspecified; F17.200 Nicotine dependence, unspecified, uncomplicated; Z79.51 Long term (current) use of inhaled steroids; Z88.0 Allergy status to penicillin; Z88.1 Allergy status to other antibiotic agents
CPT/HCPCS: 70450; 72125; 99285

== ENCOUNTER 2020-05-24 10:53 | Emergency (ER) | payer OTHER ==
[2020-05-24 11:06] VITALS: RESP 18; TEMP 97.7
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
[2020-05-24 12:14] VITALS: BP 129/97; PULSE 69
[2020-05-24] MEDS ORDERED: KETOROLAC 15 MG/ML 1 ML VIAL IM STA (12:25)
[2020-05-24] MEDS ORDERED: MORPHINE SULFATE 4 MG/ML SYRINGE IM STA (12:25)
== END 2020-05-24 12:42 | disposition home or self-care (01) ==
LOC: EC 10:53
DX: M54.12 Radiculopathy, cervical region (principal); R51 Headache; J44.9 Chronic obstructive pulmonary disease, unspecified; F17.200 Nicotine dependence, unspecified, uncomplicated; Z88.0 Allergy status to penicillin; Z88.1 Allergy status to other antibiotic agents; V43.52XA Car driver injured in collision with other type car in traffic accident, initial encounter; Y93.89 Activity, other specified; Y92.410 Unspecified street and highway as the place of occurrence of the external cause; Z98.890 Other specified postprocedural states
CPT/HCPCS: 72125; 70450; 99284; 96372 ×2; J2270; J1885

== ENCOUNTER → 2020-07-06 | Outpatient (CLI) | payer OTHER ==
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
== END | disposition home or self-care (01) ==
LOC: RADMRIMAIN 16:15
PROVIDERS: ATTEND Physical Medicine & Rehabilitation
DX: M47.22 Other spondylosis with radiculopathy, cervical region (principal); S13.4XXD Sprain of ligaments of cervical spine, subsequent encounter; M41.9 Scoliosis, unspecified
CPT/HCPCS: 72141

== ENCOUNTER → 2020-10-19 | Outpatient (CLI) | payer OTHER ==
--- NOTE | 2020-10-20 08:13 | CT ---
EXAMINATION TYPE: CT thoracic spine wo con DATE OF EXAM: 10/19/2020 COMPARISON: CT chest 12/26/2019 HISTORY: c/o back pain between shoulders X [address] DLP: 1323 mGycm Automated exposure control for dose reduction was used. Helical imaging through the thoracic spine. FINDINGS: There is multilevel thoracic spondylosis. Thoracic vertebral bodies show preserved height and bone mi neralization. Mild spinal curvature is present which could possibly be positional. Loss of disc heigh t is present at intervertebral levels. Exam is limited for evaluation of disc disease. Thoracic cord is not seen on CT. No evident spinal st enosis or foraminal encroachment. There is some facet arthropathy changes present at the lower thorac ic spine. Upper pole of the right kidney shows a low dense focus measures 6.4 cm consistent with cyst . Lungs show some paraseptal and centrilobular emphysematous change at the apex on the right. There is elevation of the left hemidiaphragm. Basilar atelectasis is present on the left versus scarr ing. Basilar emphysematous changes are present on the left. IMPRESSION: DEGENERATIVE DISC DISEASE. ELEVATED LEFT HEMIDIAPHRAGM IS CHRONIC.
== END | disposition home or self-care (01) ==
LOC: RADCTMAIN 16:51
PROVIDERS: ATTEND Family Medicine
DX: M51.14 Intervertebral disc disorders with radiculopathy, thoracic region (principal)
CPT/HCPCS: 72128

== ENCOUNTER 2020-12-06 17:23 | Emergency (ER) | payer OTHER ==
[2020-12-06 18:34] VITALS: BP 144/82; PULSE 78; RESP 18; TEMP 98
[2020-12-06] MEDS ORDERED: oxyCODONE-APAP 10-325MG 1 EACH TAB PO STA (18:38)
[2020-12-06] MEDS ORDERED: LIDOCAINE 5% PATCH TOPICAL STA (18:38)
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
== END 2020-12-06 19:33 | disposition home or self-care (01) ==
LOC: EC 17:23
DX: S16.1XXA Strain of muscle, fascia and tendon at neck level, initial encounter (principal); F17.200 Nicotine dependence, unspecified, uncomplicated; J44.9 Chronic obstructive pulmonary disease, unspecified; V99.XXXA Unspecified transport accident, initial encounter
CPT/HCPCS: 99283

== ENCOUNTER → 2020-12-27 | Outpatient (CLI) | payer SELFPAY ==
--- NOTE | 2020-12-27 14:34 | US ---
EXAMINATION TYPE: US kidneys/renal and bladder DATE OF EXAM: 12/27/2020 COMPARISON: None CLINICAL HISTORY: 55-year-old male N28.1 renal cyst. Microscopic hematuria per patient noted on last doctor office visit TECHNIQUE: Multiple sonographic images of the kidneys and bladder are obtained. FINDINGS: EXAM MEASUREMENTS: Right Kidney: 10.9 x 5.9 x 4.4 cm, Left Kidney: 13.2 x 5.4 x 6.5 cm Right Kidney: Simple cyst measuring 6.8 x 7.0 x 6.6cm at the upper pole. No hydronephrosis. Left Kidney: No hydronephrosis. Bladder: Initial distention limits evaluation. Bilateral Jets seen: yes Post Void Residual Volume: 8.9 mL Normal Post Void Residual: yes Incidental US gallbladder finding: shadowing 1.8 cm gallstone. IMPRESSION: 1. No hydronephrosis. 2. Large 7.0 cm simple cyst at the upper pole the right kidney. 3. Incidental 1.8 cm gallstone. 4. Increased postvoid bladder volume of nearly 10 mL still falls within acceptable limits.
== END | disposition home or self-care (01) ==
LOC: RADUSWWP 13:04
PROVIDERS: ATTEND Family Medicine
DX: N28.1 Cyst of kidney, acquired (principal)
CPT/HCPCS: 76770

== ENCOUNTER 2021-02-20 19:16 | Emergency (ER) | payer OTHER ==
--- NOTE | 2021-02-20 20:05 | ED ---
SOB HPI - General Chief Complaint: Shortness of Breath Stated Complaint: Sore throat, side pain Time Seen by Provider: 02/20/21 19:34 Source: patient Mode of arrival: ambulatory Limitations: no limitations - History of Present Illness Initial Comments: This is a 55-year-old male with a history of COPD, pneumonia, partial lung collapse in the past presents emergent department for right-sided chest pain, shortness of breath, sore throat. He states the symptoms been going on for last couple of days. It started mostly with a sore throat and then he feels like his throat is been very scratchy and his voice is been raspy as well. He states that then he started to have some coughing and some right-sided chest discomfort. He states that the pain is worse with deep breathing and with coughing. He states that he's also been feeling some shortness of breath associated with this. No fevers or chills. No earaches. No nausea, vomiting, diarrhea. No abdominal pain. He states he did have a sick contact who is his nephew who is in contact with a couple of days ago. He denies any recent travel. No history of PE. No other acute complaints. - Related Data Home Medications Medication Instructions Recorded Confirmed Albuterol Inhaler [Ventolin Hfa 2 puff INHALATION RT-QID PRN 12/25/19 01/02/20 Inhaler] Previous Rx's Medication Instructions Recorded Levofloxacin [Levaquin] 750 mg PO DAILY@1600 #5 tab 01/06/20 Pantoprazole [Protonix] 40 mg PO DAILY #15 tablet. 01/06/20 guaiFENesin [Mucinex] 1,200 mg PO Q12HR #0 tablet.er 01/06/20 oxyCODONE HCL/ACETAMINOPHEN 1 tab PO Q6HR PRN 3 Days #9 tab 12/06/20 [Percocet 5-325 mg] Albuterol Inhaler [Ventolin Hfa 1 puff INHALATION RT-QID PRN #1 02/20/21 Inhaler] inhaler Doxycycline [Vibramycin] 100 mg PO BID 5 Days #10 capsule 02/20/21 predniSONE 50 mg PO DAILY #5 tablet 02/20/21 Allergies Allergy/AdvReac Type Severity Reaction Status Date / Time amoxicillin [Amoxicillin] Allergy Rash/Hives Verified 02/20/21 19:23 vancomycin Allergy Rash/Hives Verified 02/20/21 19:23 Review of Systems ROS Statement: Those systems with pertinent positive or pertinent negative responses have been documented in the HPI. ROS Other: All systems not noted in ROS Statement are negative. Past Medical History Past Medical History: COPD, Pneumonia Additional Past Medical History / Comment(s): DIVERTICULITIS, BACK PAIN History of Any Multi-Drug Resistant Organisms: None Reported Past Surgical History: Back Surgery, Bowel Resection, Orthopedic Surgery, Tonsillectomy Additional Past Surgical History / Comment(s): L5 S1 laminectomy Past Psychological History: No Psychological Hx Reported Smoking Status: Current every day smoker Past Alcohol Use History: None Reported Past Drug Use History: None Reported - Past Family History Mother Family Medical History: Cancer, Diabetes Mellitus Father Family Medical History: Coronary Artery Disease (CAD) Brother(s) Additional Family Medical History / Comment(s): kidney and heart disease General Exam - General Exam Comments Initial Comments: Constitutional: Awake alert Appears comfortable Head: Normocephalic atraumatic Eyes: no conjunctival injection No scleral icterus EOMI ENT: Oropharynx is mildly erythematous without any evidence for swelling or exudates, TMs are clear bilaterally, external auditory canals are clear bilaterally Neck: No JVD Supple Heart: Regular rate rhythm normal S1-S2 no murmurs Lungs: Clear to auscultation bilaterally No wheezing No rales, mild chest wall discomfort to palpation of the right chest wall Abdomen: Soft nondistended nontender Extremities: Non edematous DP pulses intact Radial pulses intact Neuro: A&Ox3 No focal neurologic deficits Psych: Appropriate mood and affect Limitations: no limitations Course Vital Signs 02/20/21 19:20 Temperature 97.5 F L Pulse Rate 89 Respiratory 18 Rate Blood Pressure 131/83 O2 Sat by Pulse 96 Oximetry - Reevaluation(s) Reevaluation #1: 02/20/21 20:55 EKG showing normal sinus rhythm with a rate of 91. No abnormal ST 7 changes or weren't. QTC is 462. Other intervals normal. No ectopy. Medical Decision Making - Medical Decision Making Is a 55-year-old male who presented to the emergency department for cough, right-sided chest pain, shortness of breath, and sore throat. The patient was evaluated bedside and had some reproducible right-sided chest wall discomfort. No pertinent lungs findings. The patient did not any decreased breath sounds or wheezing on examination. He otherwise appeared comfortable with normal vital signs. The patient had a chest x-ray performed an EKG which were unremarkable. Labwork was significant for a leukocytosis. It does appear that the patient has chronically elevated white blood cell count however 20 is higher than his baseli ne. The rest of his blood work was reviewed and unremarkable. Strep was negative. Due to the patient's significant leukocytosis and going to start him on antibiotics, steroids, and inhaler. I told him he needs to be re-evaluated by his primary doctor in the next 1-2 days or return emergency Department his worsening breathing, chest pain, or any other complaints. All questions were answered. - Lab Data Result diagrams: 02/20/21 20:07 02/20/21 20:07 Lab Results 02/20/21 02/20/21 02/20/21 Range/Units 20:07 20:07 20:07 WBC 20.4 H (3.8-10.6) k/uL RBC 5.32 (4.30-5.90) m/uL Hgb 15.1 (13.0-17.5) gm/dL Hct 45.7 (39.0-53.0) % MCV 85.8 (80.0-100.0) fL MCH 28.4 (25.0-35.0) pg MCHC 33.1 (31.0-37.0) g/dL RDW 13.8 (11.5-15.5) % Plt Count 329 (150-450) k/uL MPV 7.3 Neutrophils % 66 % Lymphocytes % 25 % Monocytes % 7 % Eosinophils % 1 % Basophils % 0 % Neutrophils # 13.3 H (1.3-7.7) k/uL Lymphocytes # 5.0 H (1.0-4.8) k/uL Monocytes # 1.4 H (0-1.0) k/uL Eosinophils # 0.3 (0-0.7) k/uL Basophils # 0.1 (0-0.2) k/uL Sodium 142 (137-145) mmol/L Potassium 3.9 (3.5-5.1) mmol/L Chloride 107 (98-107) mmol/L Carbon Dioxide 26 (22-30) mmol/L Anion Gap 9 mmol/L BUN 16 (9-20) mg/dL Creatinine 0.92 (0.66-1.25) mg/dL Est GFR (CKD-EPI)AfAm >90 (>60 ml/min/1.73 sqM) Est GFR (CKD-EPI)NonAf >90 (>60 ml/min/1.73 sqM) Glucose 103 H (74-99) mg/dL Calcium 9.4 (8.4-10.2) mg/dL Total Bilirubin 0.3 (0.2-1.3) mg/dL AST 32 (17-59) U/L ALT 34 (4-49) U/L Alkaline Phosphatase 105 (38-126) U/L Total Protein 6.6 (6.3-8.2) g/dL Albumin 4.2 (3.5-5.0) g/dL Group A Strep Rapid Negative (Negative) Disposition Clinical Impression: Bronchitis Disposition: HOME SELF-CARE Condition: Stable Instructions (If sedation given, give patient instructions): Acute Bronchitis (ED) Prescriptions: predniSONE 50 mg PO DAILY #5 tablet Albuterol Inhaler [Ventolin Hfa Inhaler] 1 puff INHALATION RT-QID PRN #1 inhaler PRN Reason: Wheezing Doxycycline [Vibramycin] 100 mg PO BID 5 Days #10 capsule Is patient prescribed a controlled substance at d/c from ED?: No Referrals: Logan Corbett MD [Primary Care Provider] - 1-2 days
[2021-02-20 20:21] LABS: Basophils # (A) 0.1 k/uL (0-0.2); Basophils % (A) 0 %; Eosinophils # (A) 0.3 k/uL (0-0.7); Eosinophils % (A) 1 %; HCT 45.7 % (39.0-53.0); HGB 15.1 gm/dL (13.0-17.5); Lymphocytes % (A) 25 %; MCH 28.4 pg (25.0-35.0); MCHC 33.1 g/dL (31.0-37.0); MCV 85.8 fL (80.0-100.0); Mean Platelet Volume 7.3; Monocytes # (A) 1.4 k/uL (0-1.0); Monocytes % (A) 7 %; Neutrophils # (A) 13.3 k/uL (1.3-7.7); Neutrophils % (A) 66 %; Platelet Count 329 k/uL (150-450); RBC 5.32 m/uL (4.30-5.90); RDW 13.8 % (11.5-15.5); WBC 20.4 k/uL (3.8-10.6)
--- NOTE | 2021-02-20 20:36 | XR ---
EXAMINATION TYPE: XR chest 2V DATE OF EXAM: 02/20/2021 COMPARISON: 01/05/2020 HISTORY: Cough TECHNIQUE: 2 views FINDINGS: There is elevated left diaphragm. There is some mild atelectasis left lung base. Right lung is clear. Heart and mediastinum are normal. There are no hilar masses. Bony thorax is intact. IMPRESSION: There is some chronic elevation of the left diaphragm that could relate to paralysis. No acute lung disease. No change.
[2021-02-20 20:43] LABS: ALT 34 U/L (4-49); AST 32 U/L (17-59); African American GFR (CKD) >90 (>60 ml/min/1.73 sqM); Albumin 4.2 g/dL (3.5-5.0); Alkaline Phosphatase 105 U/L (38-126); Anion Gap 9 mmol/L; Blood Urea Nitrogen 16 mg/dL (9-20); Calcium 9.4 mg/dL (8.4-10.2); Carbon Dioxide 26 mmol/L (22-30); Chloride 107 mmol/L (98-107); Glucose 103 mg/dL (74-99); Non-African American GFR(CKD) >90 (>60 ml/min/1.73 sqM); Potassium 3.9 mmol/L (3.5-5.1); Sodium 142 mmol/L (137-145); Total Bilirubin 0.3 mg/dL (0.2-1.3); Total Protein 6.6 g/dL (6.3-8.2)
[2021-02-20 21:13] VITALS: BP 130/78; PULSE 82; RESP 16; TEMP 98.2
== END 2021-02-20 21:11 | disposition home or self-care (01) ==
LOC: EC 19:16
DX: J44.9 Chronic obstructive pulmonary disease, unspecified (principal); F17.200 Nicotine dependence, unspecified, uncomplicated; Z79.52 Long term (current) use of systemic steroids
CPT/HCPCS: 36415; 71046; 80053; 85025; 87081; 87430; 93005; 99285

== ENCOUNTER 2021-03-03 17:57 | Emergency (ER) | payer OTHER ==
[2021-03-03] MEDS ORDERED: ONDANSETRON 4 MG/2 ML VIAL IVP STA (19:03)
[2021-03-03] MEDS ORDERED: SODIUM CHLORIDE 0.9% 1,000 ML IV STA (19:03)
[2021-03-03] MEDS ORDERED: MORPHINE SULFATE 4 MG/ML SYRINGE IV STA (19:03)
[2021-03-03 19:17] LABS: Basophils # (A) 0.1 k/uL (0-0.2); Basophils % (A) 1 %; Eosinophils # (A) 0.2 k/uL (0-0.7); Eosinophils % (A) 2 %; HCT 45.3 % (39.0-53.0); Lymphocytes # (A) 3.9 k/uL (1.0-4.8); Lymphocytes % (A) 25 %; MCH 30.9 pg (25.0-35.0); MCHC 35.2 g/dL (31.0-37.0); MCV 87.6 fL (80.0-100.0); Mean Platelet Volume 7.2; Monocytes # (A) 1.1 k/uL (0-1.0); Monocytes % (A) 7 %; Neutrophils # (A) 10.3 k/uL (1.3-7.7); Neutrophils % (A) 65 %; Platelet Count 243 k/uL (150-450); RBC 5.16 m/uL (4.30-5.90); RDW 13.5 % (11.5-15.5); WBC 15.7 k/uL (3.8-10.6)
[2021-03-03 19:46] VITALS: RESP 16
[2021-03-03 19:48] LABS: ALT 44 U/L (4-49); AST 40 U/L (17-59); African American GFR (CKD) >90 (>60 ml/min/1.73 sqM); Albumin 3.9 g/dL (3.5-5.0); Alkaline Phosphatase 72 U/L (38-126); Amylase 62 U/L (30-110); Anion Gap 5 mmol/L; Blood Urea Nitrogen 18 mg/dL (9-20); Calcium 9.4 mg/dL (8.4-10.2); Carbon Dioxide 27 mmol/L (22-30); Chloride 106 mmol/L (98-107); Glucose 114 mg/dL (74-99); Lipase 323 U/L (23-300); Non-African American GFR(CKD) >90 (>60 ml/min/1.73 sqM); Potassium 5.5 mmol/L (3.5-5.1); Sodium 138 mmol/L (137-145); Total Bilirubin 0.8 mg/dL (0.2-1.3); Total Protein 6.9 g/dL (6.3-8.2)
[2021-03-03 20:01] LABS: Appearance,Urine Clear (Clear); Bilirubin,Urine Negative (Negative); Blood,Urine Negative (Negative); Color,Urine Yellow; Glucose,Urine (UA) Negative (Negative); Ketones,Urine Negative (Negative); Leukocyte Esterase,Urine Negative (Negative); Nitrite,Urine Negative (Negative); Protein,Urine Negative (Negative); Urobilinogen,Urine <2.0 mg/dL (<2.0)
--- NOTE | 2021-03-03 20:35 | CT ---
EXAMINATION TYPE: CT abdomen pelvis w con DATE OF EXAM: 03/03/2021 COMPARISON: 05/03/2018 HISTORY: Right upper quadrant abdominal pain. CT DLP: 1371.3 mGycm Automated exposure control for dose reduction was used. TECHNIQUE: Helical acquisition of images was performed from the lung bases through the pelvis. CONTRAST: Performed without Oral Contrast and with IV Contrast, patient injected with 100ml mL of Iso aleksandra 300. FINDINGS: LUNG BASES: No acute findings, but coronary calcifications noted. LIVER/GB: No significant abnormality is appreciated. PANCREAS: No significant abnormality is seen. SPLEEN: No significant abnormality is seen. ADRENALS: No significant abnormality is seen. KIDNEYS: 7 cm diameter simple right renal cyst noted in the right upper pole. Kidneys are otherwise u nremarkable. FREE AIR: No free air is visualized. RETROPERITONEAL ADENOPATHY: None visualized REPRODUCTIVE ORGANS: No significant abnormality is seen URINARY BLADDER: No significant abnormality is seen. PELVIC ADENOPATHY: None visualized. OSSEOUS STRUCTURES: No significant abnormality is seen. BOWEL: No significant abnormality is seen. OTHER: No acute vascular findings. IMPRESSION: 1. NO ACUTE PROCESS. 2. 7 CM RIGHT RENAL UPPER POLE CYST. This cyst measured 3 cm diameter on the 02/25/2011 CT.
--- NOTE | 2021-03-03 20:51 | ED ---
Abdominal Pain HPI - General Chief Complaint: Abdominal Pain Stated Complaint: abd pain/nausea Time Seen by Provider: 03/03/21 18:57 Source: patient, RN notes reviewed Mode of arrival: ambulatory Limitations: no limitations - History of Present Illness Initial Comments: Patient is a 55-year-old male that presents to the emergency department complaining of right upper quadrant abdominal pain. He notes that he does have a history of right upper quadrant abdominal pain and a history of gallstones. He notes that he continues to eat fatty and greasy foods. He notes that every time he gets abdominal pain it is usually after eating greasy fat food. His seconds this statement. He did not appear to be in any distress or pain while laying in bed during the exam and interview. He denied any nausea vomiting diarrhea constipation fever fatigue chills. - Related Data Home Medications Medication Instructions Recorded Confirmed Albuterol Inhaler [Ventolin Hfa 2 puff INHALATION RT-QID PRN 12/25/19 01/02/20 Inhaler] Previous Rx's Medication Instructions Recorded Levofloxacin [Levaquin] 750 mg PO DAILY@1600 #5 tab 01/06/20 Pantoprazole [Protonix] 40 mg PO DAILY #15 tablet. 01/06/20 guaiFENesin [Mucinex] 1,200 mg PO Q12HR #0 tablet.er 01/06/20 oxyCODONE HCL/ACETAMINOPHEN 1 tab PO Q6HR PRN 3 Days #9 tab 12/06/20 [Percocet 5-325 mg] Albuterol Inhaler [Ventolin Hfa 1 puff INHALATION RT-QID PRN #1 02/20/21 Inhaler] inhaler Doxycycline [Vibramycin] 100 mg PO BID 5 Days #10 capsule 02/20/21 predniSONE 50 mg PO DAILY #5 tablet 02/20/21 Allergies Allergy/AdvReac Type Severity Reaction Status Date / Time amoxicillin [Amoxicillin] Allergy Rash/Hives Verified 03/03/21 18:22 vancomycin Allergy Rash/Hives Verified 03/03/21 18:22 clavulanic acid AdvReac Rash/Hives Verified 03/03/21 18:22 [From Augmentin] Review of Systems ROS Statement: Those systems with pertinent positive or pertinent negative responses have been documented in the HPI. ROS Other: All systems not noted in ROS Statement are negative. Past Medical History Past Medical History: COPD, Pneumonia Additional Past Medical History / Comment(s): DIVERTICULITIS, BACK PAIN History of Any Multi-Drug Resistant Organisms: None Reported Past Surgical History: Back Surgery, Bowel Resection, Orthopedic Surgery, Tonsillectomy Additional Past Surgical History / Comment(s): L5 S1 laminectomy Past Psychological History: No Psychological Hx Reported Smoking Status: Current every day smoker Past Alcohol Use History: None Reported Past Drug Use History: None Reported - Past Family History Mother Family Medical History: Cancer, Diabetes Mellitus Father Family Medical History: Coronary Artery Disease (CAD) Brother(s) Additional Family Medical History / Comment(s): kidney and heart disease General Exam Limitations: no limitations General appearance: alert, in no apparent distress Head exam: Present: atraumatic, normocephalic, normal inspection Eye exam: Present: normal appearance, PERRL, EOMI. Absent: scleral icterus, conjunctival injection, periorbital swelling Neck exam: Present: normal inspection Respiratory exam: Present: normal lung sounds bilaterally. Absent: respiratory distress, wheezes, rales, rhonchi, stridor Cardiovascular Exam: Present: regular rate, normal rhythm, normal heart sounds. Absent: systolic murmur, diastolic murmur, rubs, gallop, clicks GI/Abdominal exam: Present: soft, tenderness (Upper quadrant to moderate palpation), normal bowel sounds. Absent: distended, guarding, rebound, rigid Extremities exam: Present: normal inspection, full ROM, normal capillary refill. Absent: tenderness, pedal edema, joint swelling, calf tenderness Neurological exam: Present: alert, oriented X3 Psychiatric exam: Present: normal affect, normal mood Skin exam: Present: warm, dry, intact, normal color. Absent: rash Course Vital Signs 03/03/21 03/03/21 18:23 19:45 Temperature 98.2 F Pulse Rate 117 H 88 Respiratory 18 16 Rate Blood Pressure 112/76 134/84 O2 Sat by Pulse 96 97 Oximetry Medical Decision Making - Medical Decision Making 55-year-old male complaining of right upper quadrant abdominal pain with a history of gallstones. Labs, CT of the abdomen and pelvis, 4 mg of morphine, 4 mg of Zofran ordered. Labs: White blood cells 15.7, patient has history of chronically high white count. Lipase 323. Rest of labs unremarkable. Case discussed with Dr. Shalom, patient discharge home with follow-up to general surgery. - Lab Data Result diagrams: 03/03/21 19:07 03/03/21 19:32 Lab Results 03/03/21 03/03/21 03/03/21 Range/Units 19:07 19:32 19:32 WBC 15.7 H (3.8-10.6) k/uL RBC 5.16 (4.30-5.90) m/uL Hgb 16.0 (13.0-17.5) gm/dL Hct 45.3 (39.0-53.0) % MCV 87.6 (80.0-100.0) fL MCH 30.9 (25.0-35.0) pg MCHC 35.2 (31.0-37.0) g/dL RDW 13.5 (11.5-15.5) % Plt Count 243 (150-450) k/uL MPV 7.2 Neutrophils % 65 % Lymphocytes % 25 % Monocytes % 7 % Eosinophils % 2 % Basophils % 1 % Neutrophils # 10.3 H (1.3-7.7) k/uL Lymphocytes # 3.9 (1.0-4.8) k/uL Monocytes # 1.1 H (0-1.0) k/uL Eosinophils # 0.2 (0-0.7) k/uL Basophils # 0.1 (0-0.2) k/uL Sodium 138 (137-145) mmol/L Potassium 5.5 H (3.5-5.1) mmol/L Chloride 106 (98-107) mmol/L Carbon Dioxide 27 (22-30) mmol/L Anion Gap 5 mmol/L BUN 18 (9-20) mg/dL Creatinine 0.74 (0.66-1.25) mg/dL Est GFR (CKD-EPI)AfAm >90 (>60 ml/min/1.73 sqM) Est GFR (CKD-EPI)NonAf >90 (>60 ml/min/1.73 sqM) Glucose 114 H (74-99) mg/dL Calcium 9.4 (8.4-10.2) mg/dL Total Bilirubin 0.8 (0.2-1.3) mg/dL AST 40 (17-59) U/L ALT 44 (4-49) U/L Alkaline Phosphatase 72 (38-126) U/L Total Protein 6.9 (6.3-8.2) g/dL Albumin 3.9 (3.5-5.0) g/dL Amylase 62 (30-110) U/L Lipase 323 H (23-300) U/L Urine Color Yellow Urine Appearance Clear (Clear) Urine pH 6.0 (5.0-8.0) Ur Specific [place] 1.020 (1.001-1.035) Urine Protein Negative (Negative) Urine Glucose (UA) Negative (Negative) Urine Ketones Negative (Negative) Urine Blood Negative (Negative) Urine Nitrite Negative (Negative) Urine Bilirubin Negative (Negative) Urine Urobilinogen <2.0 (<2.0) mg/dL Ur Leukocyte Esterase Negative (Negative) - Radiology Data Radiology results: report reviewed, image reviewed CT of the abdomen and pelvis: No acute process. 7 cm right renal upper pole cyst. The cyst measured 3 cm diameter on 02/25/2011. Disposition Clinical Impression: Right upper quadrant pain, Elevated lipase Disposition: HOME SELF-CARE Condition: Stable Instructions (If sedation given, give patient instructions): Abdominal Pain (ED) Additional Instructions: Please return to the Emergency Department if symptoms worsen or any other concerns. Follow-up with primary care in general surgery as soon as possible. Clean of diet avoid fatty foods and greasy foods. Take Motrin as needed for pain control. Is patient prescribed a controlled substance at d/c from ED?: No Referrals: Logan Corbett MD [Primary Care Provider] - 1-2 days Angela Campo MD [STAFF PHYSICIAN] - 1-2 days Time of Disposition: 20:59
[2021-03-03 21:12] VITALS: BP 118/74; PULSE 83; TEMP 98
== END 2021-03-03 21:05 | disposition home or self-care (01) ==
LOC: EC 17:57
DX: R10.11 Right upper quadrant pain (principal); R74.8 Abnormal levels of other serum enzymes; J44.9 Chronic obstructive pulmonary disease, unspecified; F17.200 Nicotine dependence, unspecified, uncomplicated; Z79.51 Long term (current) use of inhaled steroids; Z79.52 Long term (current) use of systemic steroids; Z79.899 Other long term (current) drug therapy; Z88.1 Allergy status to other antibiotic agents; Z88.0 Allergy status to penicillin; Z83.3 Family history of diabetes mellitus
CPT/HCPCS: 36415; 80053; 82150; 83690; 85025; 81003; 74177; 96374; 96375; 96361; 99284; J2270; J2405; Q9967

== ENCOUNTER 2021-03-25 06:22 | Day surgery (SDC) | payer OTHER ==
[2021-03-24 08:36] VITALS: BMI 29.0
[~2021-03-25 06:22] MED LIST changes: +DEXAMETHASONE SOD PHOSPHATE 4 MG/ML 1 ML VIAL IV ONE; +HEPARIN SODIUM,PORCINE/PF 5,000 UNIT/0.5 ML SYRINGE SQ PRN; +LACTATED RINGERS 1,000 ML IV SCH; +LIDOCAINE 1% (10MG/ML) FOR IV START INTRADERMA PRN; +ONDANSETRON 4 MG/2 ML VIAL IVP ONE; -REGADENOSON 0.4 MG/5 ML SYRINGE IV ONE; +SCOPOLAMINE 1.5MG/72HR PATCH TRANSDERM ONE
[2021-03-25] MEDS ORDERED: ACETAMINOPHEN TAB 500 MG TAB PO PRN (06:34)
[2021-03-25] MEDS ORDERED: GABAPENTIN 300 MG CAP PO PRN (06:34)
[2021-03-25] MEDS ORDERED: TAMSULOSIN 0.4 MG CAP.ER.24H PO PRN (06:34)
[2021-03-25] MEDS ORDERED: MELOXICAM 7.5 MG TAB PO PRN (06:34)
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
[2021-03-25] MEDS ORDERED: INDOCYANINE GREEN 25 MG VIAL IV PRN (06:40)
[2021-03-25 07:03] LABS: Basophils # (A) 0.1 k/uL (0-0.2); Basophils % (A) 1 %; Eosinophils # (A) 0.3 k/uL (0-0.7); Eosinophils % (A) 2 %; HCT 46.1 % (39.0-53.0); HGB 15.9 gm/dL (13.0-17.5); Lymphocytes # (A) 3.8 k/uL (1.0-4.8); Lymphocytes % (A) 29 %; MCH 29.5 pg (25.0-35.0); MCHC 34.5 g/dL (31.0-37.0); MCV 85.7 fL (80.0-100.0); Mean Platelet Volume 7.6; Monocytes # (A) 1.2 k/uL (0-1.0); Monocytes % (A) 9 %; Neutrophils # (A) 7.4 k/uL (1.3-7.7); Neutrophils % (A) 57 %; Platelet Count 346 k/uL (150-450); RBC 5.39 m/uL (4.30-5.90); RDW 13.4 % (11.5-15.5); WBC 13.1 k/uL (3.8-10.6)
[2021-03-25 07:16] LABS: ALT 29 U/L (4-49); AST 26 U/L (17-59); African American GFR (CKD) >90 (>60 ml/min/1.73 sqM); Albumin 4.5 g/dL (3.5-5.0); Alkaline Phosphatase 112 U/L (38-126); Anion Gap 6 mmol/L; Blood Urea Nitrogen 15 mg/dL (9-20); Calcium 9.7 mg/dL (8.4-10.2); Carbon Dioxide 24 mmol/L (22-30); Chloride 107 mmol/L (98-107); Glucose 128 mg/dL (74-99); Non-African American GFR(CKD) >90 (>60 ml/min/1.73 sqM); Potassium 4.3 mmol/L (3.5-5.1); Sodium 137 mmol/L (137-145); Total Bilirubin 0.3 mg/dL (0.2-1.3); Total Protein 7.2 g/dL (6.3-8.2)
[2021-03-25] MEDS ORDERED: DEXAMETHASONE SOD PHOSPHATE 10 MG/ML 1 ML VIAL ONE (07:28)
[2021-03-25] MEDS ORDERED: PROPOFOL 10 MG/ML 20 ML VIAL IV ONE (07:28)
[2021-03-25] MEDS ORDERED: fentaNYL (PF) 50 MCG/ML 2 ML AMP ONE (07:28)
[2021-03-25] MEDS ORDERED: SUCCINYLCHOLINE CHLORIDE 100 MG/5 ML SYR IV ONE (07:28)
[2021-03-25] MEDS ORDERED: LIDOCAINE 1% INJ 10MG/ML (20 ML MDV) ONE (07:28)
[2021-03-25] MEDS ORDERED: NEOSTIGMINE 1 MG/ML 10 ML VIAL ONE (07:28)
[2021-03-25] MEDS ORDERED: MIDAZOLAM 2 MG/2 ML VIAL ONE (07:28)
[2021-03-25] MEDS ORDERED: KETOROLAC 15 MG/ML 1 ML VIAL ONE (07:28)
[2021-03-25] MEDS ORDERED: diphenhydrAMINE 50 MG/ML 1 ML VIAL ONE (07:28)
[2021-03-25] MEDS ORDERED: INDOCYANINE GREEN 25 MG VIAL IV ONE (07:28)
[2021-03-25] MEDS ORDERED: GLYCOPYRROLATE 0.2 MG/ML 2 ML VIAL ONE (07:28)
[2021-03-25] MEDS ORDERED: ROCURONIUM 10 MG/ML (5 ML VIAL) IV ONE (07:28)
[2021-03-25] MEDS ORDERED: PHENYLEPHRINE-0.9% NACL SYG 1,000 MCG/10 ML SYRINGE ONE (07:28)
[2021-03-25] MEDS ORDERED: BUPIVACAINE (PF) 0.25% 30 ML VIAL SQ ONE ×2 (07:30→07:51)
[2021-03-25] MEDS ORDERED: LACTATED RINGERS 1,000 ML IV ONE (08:32)
--- NOTE | 2021-03-25 08:44 | P.OP ---
Date of Procedure: 03/25/21 Description of Procedure: SURGEON: ANGELA CAMPO MD PREOPERATIVE DIAGNOSES: 1. Symptomatic gallstone with cholecystitis 2. Persistent leukocytosis 3. Chronic obstructive pulmonary disease 4. Hyperlipidemia 5. Hypertensive heart disease 6. Chronic pain syndrome 7. Migraines 8. Tobacco abuse disorder 9. History of diverticulitis POSTOPERATIVE DIAGNOSES: 1. Symptomatic gallstone with cholecystitis 2. Persistent leukocytosis 3. Chronic obstructive pulmonary disease 4. Hyperlipidemia 5. Hypertensive heart disease 6. Chronic pain syndrome 7. Migraines 8. Tobacco abuse disorder 9. History of diverticulitis OPERATION: Robotic-assisted da Lester Xi laparoscopic cholecystectomy, multiport with FIREFLY ESTIMATED BLOOD LOSS: 5 mL. SPECIMENS REMOVED: Gallbladder. COMPLICATIONS: None. OPERATIVE FINDINGS: 1. Gallstone over 8 mm in size palpated INDICATIONS: The patient is a 55-year-old male who presents with symptomatic gallstones. Robotic assisted laparoscopic approach was described. Benefits and risks of the procedure including but not limited to bleeding, infection, injury to the biliary tree was described. Informed consent was obtained. DESCRIPTION OF PROCEDURE: Patient was brought to the operating room, placed in supine position. After general induction, the abdomen had been prepped and draped in standard sterile fashion. The robotic da Lester XI system was primed. After a timeout protocol was performed, the patient had been prepped and draped in standard sterile fashion. The patient was injected with indocyanine green. A 5 mm 0 degrees laparoscopic trocar entry was performed along the left upper quadrant. The abdomen insufflated to 15 mmHg pressure which was tolerated well. Diagnostic laparoscopy demonstrated no injury to bowel viscera or mesentery. The liver surface was unremarkable. Adhesions were identified along the e pigastrium and complexity to the case. Next, two 8 mm robotic ports were placed along the right upper abdomen. The camera 8-mm port was maintained along the epigastrium. Another 8 mm port was placed along the left upper abdominal wall. Please note that the ports were placed at least 10 to 15 cm away from the target anatomy of the gallbladder. The robot was docked along the left lateral abdomen. The patient was repositioned in reverse Trendelenburg position. Using a grasper for arm 3, a grasper for arm 4, including hook cautery for arm 1, the robotic system was docked and primed as described. Instruments were interchanged by the admin assistant including hook cautery, Bovie cautery and clip appliers. I had sat at the console. The gallbladder infundibulum was bulbous adding complexity to the case. The dome down technique starting from the fundus of the gallbladder to the infundibulum was performed along the peritoneal attachments to the liver. Next attention was brought to the infundibulum and cystic structures. The infundibulum and cystic duct were dissected free from surrounding tissues. The cystic duct was isolated. FIREFLY was used to identify the cystic artery and cystic structures. A critical view of safety was obtained. Large PLASTIC clips were used throughout the entire case. Using a clip economic geographer, 2 clips were placed at the junction of the infundibulum and cystic duct. The cystic duct was divided between clips. Next, the cystic artery was similarly clipped and cauterized. Electro-Bovie cautery was used to remove the gallbladder from the hepatic fossa. Hemostasis was checked and found to be adequate. The robot was undocked. I re-scrubbed into the case. Using a 10 mm Endo Catch bag via the left upper quadrant incision, the specimen was removed from the abdominal cavity. All pneumoperitoneum instruments were evacuated from the abdominal cavity. The incisions were reapproximated using 4-0 Monocryl in an interrupted subcuticular fashion. Fascial defects were less than 8 mm in size. Please note along the trocar sites, local anesthetic was placed as a field block prior to insertion of all instruments. Liquid glue was applied to the skin. At the end of the procedure needle, sponge, and instrument count had been verified correct by the surgical first assistant. The patient was transferred to postanesthesia care unit in stable condition. Intraoperative films were shared with the patient's family. Plan - Discharge Summary Discharge Rx Participant: Yes New Discharge Prescriptions: New Simethicone [Gas-X] 125 mg PO AC-TID PRN #20 capsule PRN Reason: Pain Acetaminophen Tab [Tylenol Tab] 1,000 mg PO Q6HR PRN #30 tablet PRN Reason: Pain Continue traMADol HCL [Ultram] 50 mg PO BID Gabapentin [Neurontin] 300 mg PO TID Albuterol Inhaler [Ventolin Hfa Inhaler] 1 puff INHALATION RT-QID PRN #1 inhaler PRN Reason: Wheezing Naproxen [Naprosyn] 500 mg PO Q12HR Atorvastatin [Lipitor] 40 mg PO HS Primidone [Mysoline] 25 mg PO HS methocarbamoL [Robaxin] 750 mg PO BID Discharge Medication List Albuterol Inhaler [Ventolin Hfa Inhaler] 1 puff INHALATION RT-QID PRN #1 inhaler 02/20/21 [Rx] Atorvastatin [Lipitor] 40 mg PO HS 03/24/21 [History] Gabapentin [Neurontin] 300 mg PO TID 03/24/21 [History] Naproxen [Naprosyn] 500 mg PO Q12HR 03/24/21 [History] Primidone [Mysoline] 25 mg PO HS 03/24/21 [History] methocarbamoL [Robaxin] 750 mg PO BID 03/24/21 [History] traMADol HCL [Ultram] 50 mg PO BID 03/24/21 [History] Acetaminophen Tab [Tylenol Tab] 1,000 mg PO Q6HR PRN #30 tablet 03/25/21 [Rx] Simethicone [Gas-X] 125 mg PO AC-TID PRN #20 capsule 03/25/21 [Rx] Follow up Appointment(s)/Referral(s): Angela Campo MD [STAFF PHYSICIAN] - 03/29/21 Patient Instructions/Handouts: Laparoscopic Cholecystectomy (DC), Low Fat Diet (DC), *[facility]gery [facility] - Managing Your Pain After Surgery Without Opioids Activity/Diet/Wound Care/Special Instructions: Recommend low-fat diet for the next 2 days. No lifting over 10 pounds in 2 weeks until April 08. May shower. No bath tub soaks for two weeks until April 08 Diet as tolerated. Use Tylenol, simethicone and ibuprofen or Aleve scheduled for the next 24-48 hours for best pain relief. Use ice along incisions for today to prevent swelling. Discharge Disposition: HOME SELF-CARE
[2021-03-25 08:48] VITALS: TEMP 97
[2021-03-25 08:53] VITALS: RESP 16
[2021-03-25] MEDS: HYDROmorphone 0.5 MG/0.5 ML SYRINGE IVP PRN ×2 (09:16→09:26)
[2021-03-25 10:50] VITALS: BP 119/80; PULSE 86
== END 2021-03-25 11:17 | disposition home or self-care (01) ==
LOC: OR 06:22
PROVIDERS: ATTEND Surgery Plastic and Reconstructive Surgery
DX: K80.10 Calculus of gallbladder with chronic cholecystitis without obstruction (principal); K66.0 Peritoneal adhesions (postprocedural) (postinfection); J44.9 Chronic obstructive pulmonary disease, unspecified; E78.5 Hyperlipidemia, unspecified; D72.829 Elevated white blood cell count, unspecified; M54.9 Dorsalgia, unspecified; G43.909 Migraine, unspecified, not intractable, without status migrainosus; G89.4 Chronic pain syndrome; G62.9 Polyneuropathy, unspecified; Z90.49 Acquired absence of other specified parts of digestive tract; Z90.89 Acquired absence of other organs; Z98.890 Other specified postprocedural states; F17.210 Nicotine dependence, cigarettes, uncomplicated; Z87.01 Personal history of pneumonia (recurrent); Z87.19 Personal history of other diseases of the digestive system; Z82.49 Family history of ischemic heart disease and other diseases of the circulatory system; Z97.2 Presence of dental prosthetic device (complete) (partial); Z84.1 Family history of disorders of kidney and ureter; Z79.1 Long term (current) use of non-steroidal anti-inflammatories (NSAID); Z79.899 Other long term (current) drug therapy; Z79.891 Long term (current) use of opiate analgesic; Z88.0 Allergy status to penicillin; Z88.1 Allergy status to other antibiotic agents
CPT/HCPCS: 88304; 80053; 85025; 47564; J2250; J1200; J1100 ×2; J2710; J0690; J2405; J2001; J3010; J1885; J2370; J0330; J2704; J1170; J1644

== ENCOUNTER → 2021-04-08 | Outpatient (CLI) | payer OTHER ==
--- NOTE | 2021-04-08 12:41 | US ---
EXAMINATION TYPE: US kidneys/renal and bladder DATE OF EXAM: 04/08/2021 COMPARISON: NONE CLINICAL HISTORY: N28.1 CYST ON KIDNEY. known cyst on right renal, no symptoms from it EXAM MEASUREMENTS: Right Kidney: 9.9 x 5.1 x 5.7 cm Left Kidney: 12.5 x 4.9 x 6.3 cm Right Kidney: 7.4cm superior pole cyst Left Kidney: No hydronephrosis or masses seen Bladder: wnl Bilateral Jets seen: yes There is no evidence for hydronephrosis at this point in time. No nephrolithiasis is seen. The urina ry bladder is anechoic. Bilateral ureteral jets are seen. IMPRESSION: Large simple cyst upper pole right kidney.
== END | disposition home or self-care (01) ==
LOC: RADUSWWP 11:49
PROVIDERS: ATTEND Family Medicine
DX: N28.1 Cyst of kidney, acquired (principal)
CPT/HCPCS: 76770

== ENCOUNTER → 2021-06-02 | Outpatient (CLI) | payer OTHER ==
[2021-06-02 11:05] LABS: Partial Thromboplastin Time 23.1 sec (22.0-30.0)
[2021-06-02 11:14] LABS: African American GFR (CKD) >90 (>60 ml/min/1.73 sqM); Anion Gap 6 mmol/L; Blood Urea Nitrogen 12 mg/dL (9-20); Calcium 9.8 mg/dL (8.4-10.2); Carbon Dioxide 26 mmol/L (22-30); Chloride 106 mmol/L (98-107); Glucose 107 mg/dL (74-99); Non-African American GFR(CKD) >90 (>60 ml/min/1.73 sqM); Potassium 4.4 mmol/L (3.5-5.1); Sodium 138 mmol/L (137-145)
[2021-06-02 11:21] LABS: HCT 47.4 % (39.0-53.0); HGB 16.1 gm/dL (13.0-17.5); MCH 29.7 pg (25.0-35.0); MCV 87.4 fL (80.0-100.0); Mean Platelet Volume 7.9; Platelet Count 289 k/uL (150-450); RBC 5.42 m/uL (4.30-5.90); RDW 13.5 % (11.5-15.5); WBC 10.1 k/uL (3.8-10.6)
[2021-06-02 11:32] LABS: Appearance,Urine Clear (Clear); Bilirubin,Urine Negative (Negative); Blood,Urine Negative (Negative); Color,Urine Yellow; Glucose,Urine (UA) Negative (Negative); Ketones,Urine Negative (Negative); Leukocyte Esterase,Urine Negative (Negative); Nitrite,Urine Negative (Negative); PH, Urine 5.5 (5.0-8.0); Protein,Urine Negative (Negative); Specific Gravity,Urine 1.013 (1.001-1.035); Urobilinogen,Urine <2.0 mg/dL (<2.0)
--- NOTE | 2021-06-02 12:00 | XR ---
EXAMINATION TYPE: XR chest 2V DATE OF EXAM: 06/02/2021 COMPARISON: 02/20/2021 TECHNIQUE: PA and lateral views submitted. 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 Chronic linear changes likely o n the basis of compressive atelectasis. No overt failure. Heart size normal. No pneumothorax. Hypertr ophic and degenerative changes spine. Hyperinflation suggests COPD. IMPRESSION: 1. No acute process.
[2021-06-02 13:56] LABS: Lymphocytes # (M) 3.23 k/uL (1.0-4.8); Monocytes # (M) 1.21 k/uL (0-1.0); Neutrophils # (M) 5.35 k/uL (1.3-7.7); Neutrophils % (M) 53 %; Nucleated Red Blood Cells 0 /100 WBC (0-0); Total Cells Counted 100
== END | disposition home or self-care (01) ==
LOC: LABPAT 10:14
PROVIDERS: ATTEND Orthopaedic Surgery Orthopaedic Surgery of the Spine
DX: Z01.818 Encounter for other preprocedural examination (principal); M50.222 Other cervical disc displacement at C5-C6 level; J98.6 Disorders of diaphragm
CPT/HCPCS: 36415; 71046; 80048; 81003; 85025; 85610; 85730

== ENCOUNTER 2021-06-13 06:09 | Day surgery (SDC) | payer OTHER ==
[2021-06-10 09:56] VITALS: BMI 29.8
[~2021-06-13 06:09] MED LIST changes: -HEPARIN SODIUM,PORCINE/PF 5,000 UNIT/0.5 ML SYRINGE SQ PRN; -LACTATED RINGERS 1,000 ML IV SCH; +METOCLOPRAMIDE 5 MG/ML 2 ML VIAL IVP PRN; -SCOPOLAMINE 1.5MG/72HR PATCH TRANSDERM ONE; +ceFAZolin 1,000 MG in SODIUM CHLORIDE 0.9% IRRIGATIO 1,000 ML IRRIGATION PRN
[2021-06-13] MEDS: LACTATED RINGERS 1,000 ML IV SCH (07:13)
[2021-06-13] MEDS ORDERED: ROCURONIUM 10 MG/ML (5 ML VIAL) IV ONE (07:20)
[2021-06-13] MEDS ORDERED: ePHEDrine SULFATE/0.9% NACL/PF 50 MG/5 ML SYRINGE IV ONE (07:20)
[2021-06-13] MEDS ORDERED: .fentaNYL (PF) 50 MCG/ML 2 ML AMP ONE (07:20)
[2021-06-13] MEDS ORDERED: GLYCOPYRROLATE 0.2 MG/ML 2 ML VIAL ONE (07:20)
[2021-06-13] MEDS ORDERED: NEOSTIGMINE 1 MG/ML 10 ML VIAL ONE (07:20)
[2021-06-13] MEDS ORDERED: SUCCINYLCHOLINE CHLORIDE VIAL 200 MG/10 ML VIAL IV ONE (07:20)
[2021-06-13] MEDS ORDERED: LIDOCAINE 1% INJ 10MG/ML (20 ML MDV) ONE (07:20)
[2021-06-13] MEDS ORDERED: PROPOFOL 10 MG/ML 20 ML VIAL IV ONE (07:20)
[2021-06-13] MEDS ORDERED: MIDAZOLAM 2 MG/2 ML VIAL ONE (07:20)
[2021-06-13] MEDS ORDERED: LIDOCAINE 0.5%-EPI 1:200,000 50 ML VIAL SQ ONE (07:30)
[2021-06-13] MEDS ORDERED: GELATIN SPONGE,ABSORB (LARGE) 1 EACH SPONGE TOPICAL ONE (07:30)
[2021-06-13] MEDS ORDERED: THROMBIN (BOVINE) 5,000 UNIT VIAL TOPICAL ONE (07:30)
[2021-06-13] MEDS ORDERED: LACTATED RINGERS 1,000 ML IV ONE (08:47)
--- NOTE | 2021-06-13 09:00 | FL ---
Fluoroscopy HISTORY: Cervical fusion 1 seconds fluoroscopy time supplied to the referring clinician. 1 intraoperative C-arm images docume nt the procedure. See dictated report from orthopedic surgery.
[2021-06-13] MEDS ORDERED: ONDANSETRON 4 MG/2 ML VIAL IVP PRN (09:36)
[2021-06-13] MEDS ORDERED: HYDROcodone/APAP 5-325MG 1 EACH TAB PO PRN (09:36)
[2021-06-13] MEDS ORDERED: HYDROmorphone 0.5 MG/0.5 ML SYRINGE IVP PRN (09:36)
[2021-06-13] MEDS ORDERED: ACETAMINOPHEN TAB 500 MG TAB PO PRN (09:36)
[2021-06-13] MEDS ORDERED: BENZOCAINE/MENTHOL LOZENG 1 EACH LOZENGE MUCOUS MEM PRN (09:36)
[2021-06-13] MEDS ORDERED: traMADol 50 MG TAB PO PRN (09:36)
[2021-06-13] MEDS ORDERED: ONDANSETRON 4 MG/2 ML VIAL ONE (09:37)
[2021-06-13] MEDS ORDERED: ALBUTEROL NEBULIZED 2.5 MG/3 ML INHALATION PRN (09:38)
[2021-06-13] MEDS ORDERED: ONDANSETRON 4 MG/2 ML VIAL IVP ONE (09:38)
[2021-06-13] MEDS: HYDROmorphone 0.5 MG/0.5 ML SYRINGE IVP PRN ×5 (09:40→13:25)
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
[2021-06-13] MEDS: CYCLOBENZAPRINE 10 MG TAB PO PRN ×2 (10:40→21:46)
--- NOTE | 2021-06-13 11:04 | XR ---
Limited cervical spine HISTORY: Anterior cervical fusion Single lateral view the cervical spine, comparison to prior exam CT 05/24/2020 Patient is status post anterior cervical fusion and discectomy at C4-C6, intervertebral spacer blocks are present. Endotracheal tube and NG tube are noted incidentally. There are overlying leads and art ifacts. There is anatomic alignment. C7-T1 not well seen. Facet arthropathy changes noted incidentall y. IMPRESSION: Orthopedic follow-up.
[2021-06-13] MEDS ORDERED: diphenhydrAMINE 50 MG/ML 1 ML VIAL ONE (11:24)
[2021-06-13] MEDS ORDERED: diphenhydrAMINE 50 MG/ML 1 ML VIAL IVP ONE ×2 (11:25)
[2021-06-13] MEDS ORDERED: HYDROmorphone 0.5 MG/0.5 ML SYRINGE IVP ONE (11:30)
[2021-06-13] MEDS ORDERED: SODIUM CHLORIDE 0.9% 1,000 ML IV ONE (15:33)
[2021-06-13] MEDS: traMADol 50 MG TAB PO SCH ×2 (16:24→17:16)
[2021-06-13] MEDS: GABAPENTIN 300 MG CAP PO SCH ×2 (17:16→21:46)
[2021-06-13] MEDS: SODIUM CHLORIDE 0.9% 1,000 ML IV SCH (17:18)
[2021-06-13 19:40] VITALS: RESP 20; TEMP 98.3
[2021-06-13] MEDS ORDERED: PRIMIDONE 50 MG TAB PO SCH (21:00)
[2021-06-13] MEDS ORDERED: ATORVASTATIN 40 MG TAB PO SCH (21:00)
[2021-06-13] MEDS: methocarbamoL 750 MG TAB PO SCH (21:45)
[2021-06-14] MEDS: traMADol 50 MG TAB PO SCH ×2 (00:01→05:48)
[2021-06-14 05:18] VITALS: BP 121/78; PULSE 100
[2021-06-14] MEDS: SODIUM CHLORIDE 0.9% 1,000 ML IV SCH (05:49)
[2021-06-14] MEDS: LACTATED RINGERS 1,000 ML IV SCH (05:49)
[2021-06-14] MEDS: GABAPENTIN 300 MG CAP PO SCH (08:45)
[2021-06-14] MEDS: methocarbamoL 750 MG TAB PO SCH (08:46)
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
== END 2021-06-14 11:20 | disposition home or self-care (01) ==
LOC: OR 06:09 → 5NMEDONC 10:59 → OR 23:45 → 5NMEDONC 23:45 → UNDOADMOB 23:45 → OR 06-14 11:20 → UNDODISOB 06-14 11:20
PROVIDERS: ATTEND Orthopaedic Surgery Orthopaedic Surgery of the Spine
DX: M50.121 Cervical disc disorder at C4-C5 level with radiculopathy (principal); M50.122 Cervical disc disorder at C5-C6 level with radiculopathy; V89.2XXA Person injured in unspecified motor-vehicle accident, traffic, initial encounter; M79.12 Myalgia of auxiliary muscles, head and neck; M62.830 Muscle spasm of back; E78.5 Hyperlipidemia, unspecified; J98.4 Other disorders of lung; Z20.822 Contact with and (suspected) exposure to COVID-19; Z90.49 Acquired absence of other specified parts of digestive tract; Z97.2 Presence of dental prosthetic device (complete) (partial); Z98.890 Other specified postprocedural states; Z83.3 Family history of diabetes mellitus; Z82.49 Family history of ischemic heart disease and other diseases of the circulatory system; F17.210 Nicotine dependence, cigarettes, uncomplicated; M19.90 Unspecified osteoarthritis, unspecified site; R20.2 Paresthesia of skin; Z79.1 Long term (current) use of non-steroidal anti-inflammatories (NSAID); Z79.891 Long term (current) use of opiate analgesic; Z79.899 Other long term (current) drug therapy; Z88.1 Allergy status to other antibiotic agents; Z88.0 Allergy status to penicillin
CPT/HCPCS: 22551; 22552; 20930; 22845; 86900; 86901; 86850; 87635; 72020; 72040; C1713 ×2; C1762; J2250; J0330; J1200; J2710; J0690 ×3; J2405; J2001; J3010; J2704; J1170

== ENCOUNTER 2021-06-24 18:54 | Emergency (ER) | payer OTHER ==
[2021-06-24 19:01] VITALS: RESP 18
--- NOTE | 2021-06-24 20:39 | XR ---
EXAMINATION TYPE: XR soft tissue neck DATE OF EXAM: 06/24/2021 COMPARISON: NONE HISTORY: Cervical fusion surgery. Dysphagia. TECHNIQUE: 2 views FINDINGS: There is anterior fusion surgery from C4 to C6. Vertebra have normal alignment. Epiglottis is normal. Prevertebral soft tissues are within normal limits. Tonsils and adenoids appear normal. IMPRESSION: Cervical spine fusion surgery. No definite complicating process.
--- NOTE | 2021-06-24 20:40 | XR ---
EXAMINATION TYPE: XR chest 2V DATE OF EXAM: 06/24/2021 COMPARISON: 06/02/2021 HISTORY: Cervical fusion surgery. Pain. TECHNIQUE: 2 views FINDINGS: There is elevated left diaphragm. Lungs are clear of consolidation. There is no heart failu re. Heart size is normal. There is a small area of atelectasis left lung base. 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 No significant c hange compared to recent exam.
[2021-06-24] MEDS ORDERED: GLUCAGON 1 MG/ML VIAL IVP STA (20:52)
[2021-06-24 21:08] VITALS: TEMP 96.3
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
[2021-06-24 21:57] VITALS: BP 154/96; PULSE 105
[2021-06-24] MEDS ORDERED: KETOROLAC 15 MG/ML 1 ML VIAL IVP STA (22:03)
[2021-06-24] MEDS ORDERED: MORPHINE SULFATE 4 MG/ML SYRINGE IVP STA (23:12)
== END 2021-06-25 00:57 | disposition other institution (70) ==
LOC: EC 18:54
DX: T18.128A Food in esophagus causing other injury, initial encounter (principal); E78.5 Hyperlipidemia, unspecified; J44.9 Chronic obstructive pulmonary disease, unspecified; Z79.51 Long term (current) use of inhaled steroids; Z79.899 Other long term (current) drug therapy; Z88.0 Allergy status to penicillin; Z88.1 Allergy status to other antibiotic agents; Z82.49 Family history of ischemic heart disease and other diseases of the circulatory system; Z80.3 Family history of malignant neoplasm of breast; Z90.49 Acquired absence of other specified parts of digestive tract; X58.XXXA Exposure to other specified factors, initial encounter
CPT/HCPCS: 70360; 71046; 99284; 96374; 96375 ×2; J2270; J1610; J1885

== ENCOUNTER 2022-03-12 21:26 | Emergency (ER) | payer OTHER ==
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
[2022-03-12] MEDS ORDERED: LIDOCAINE/EPINEPHR/TETRACAINE 5 ML BOTTLE TOPICAL ONE (23:20)
[2022-03-12] MEDS ORDERED: SULFAMETHOX-TMP 800-160MG 1 EACH TAB PO STA (23:21)
[2022-03-12] MEDS ORDERED: SULFAMETH-TMP DS STARTER PACK 2 TAB BTL PO STA (23:22)
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
[2022-03-13] MEDS ORDERED: LIDOCAINE 1% INJ 10MG/ML (5 ML VIAL-PF) SQ ONE (00:07)
[2022-03-13] MEDS ORDERED: MUPIROCIN 2% OINT 22 GM TUBE TOPICAL ONE (00:51)
[2022-03-13 01:09] VITALS: BP 107/77; PULSE 77; RESP 18; TEMP 97.6
== END 2022-03-13 01:10 | disposition home or self-care (01) ==
LOC: EC 21:26
DX: S81.832A Puncture wound without foreign body, left lower leg, initial encounter (principal); E78.5 Hyperlipidemia, unspecified; J44.9 Chronic obstructive pulmonary disease, unspecified; J18.9 Pneumonia, unspecified organism; Z88.0 Allergy status to penicillin; Z88.1 Allergy status to other antibiotic agents
CPT/HCPCS: 99283; 73590; J2001

== ENCOUNTER 2022-08-15 07:43 | Emergency (ER) | payer OTHER ==
[2022-08-15] MEDS ORDERED: SODIUM CHLORIDE 0.9% 1,000 ML IV STA (07:49)
[2022-08-15] MEDS ORDERED: ONDANSETRON 4 MG/2 ML VIAL IVP STA (07:49)
[2022-08-15] MEDS ORDERED: HYDROmorphone 0.5 MG/0.5 ML SYRINGE IVP STA (07:49)
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
[2022-08-15 08:14] LABS: Basophils # (A) 0.1 k/uL (0-0.2); Basophils % (A) 1 %; Eosinophils # (A) 0.2 k/uL (0-0.7); Eosinophils % (A) 2 %; HCT 47.9 % (39.0-53.0); HGB 15.8 gm/dL (13.0-17.5); Lymphocytes # (A) 2.9 k/uL (1.0-4.8); Lymphocytes % (A) 30 %; MCH 28.5 pg (25.0-35.0); MCV 86.4 fL (80.0-100.0); Monocytes # (A) 0.6 k/uL (0-1.0); Monocytes % (A) 6 %; Neutrophils # (A) 5.7 k/uL (1.3-7.7); Neutrophils % (A) 59 %; Platelet Count 332 k/uL (150-450); RBC 5.54 m/uL (4.30-5.90); RDW 13.2 % (11.5-15.5); WBC 9.6 k/uL (3.8-10.6)
[2022-08-15 08:18] LABS: Appearance,Urine Clear (Clear); Bilirubin,Urine Negative (Negative); Blood,Urine Negative (Negative); Color,Urine Yellow; Glucose,Urine (UA) Negative (Negative); Ketones,Urine Negative (Negative); Leukocyte Esterase,Urine Negative (Negative); Nitrite,Urine Negative (Negative); PH, Urine 6.5 (5.0-8.0); Protein,Urine Trace (Negative); Specific Gravity,Urine 1.023 (1.001-1.035)
[2022-08-15 08:37] LABS: ALT 23 U/L (4-49); AST 24 U/L (17-59); African American GFR (CKD) >90 (>60 ml/min/1.73 sqM); Albumin 4.2 g/dL (3.5-5.0); Alkaline Phosphatase 113 U/L (38-126); Amylase <30 U/L (30-110); Anion Gap 11 mmol/L; Blood Urea Nitrogen 8 mg/dL (9-20); Calcium 8.8 mg/dL (8.4-10.2); Carbon Dioxide 20 mmol/L (22-30); Chloride 107 mmol/L (98-107); Glucose 197 mg/dL (74-99); Lipase 55 U/L (23-300); Non-African American GFR(CKD) >90 (>60 ml/min/1.73 sqM); Potassium 3.9 mmol/L (3.5-5.1); Sodium 138 mmol/L (137-145); Total Bilirubin 0.7 mg/dL (0.2-1.3); Total Protein 6.9 g/dL (6.3-8.2)
--- NOTE | 2022-08-15 08:42 | CT ---
EXAMINATION TYPE: CT abdomen pelvis w con DATE OF EXAM: 08/15/2022 COMPARISON: 03/03/2021 HISTORY: 56-year-old male with right-sided pain TECHNIQUE: Contiguous axial scanning of the abdomen and pelvis following administration of 100 ml Iso aleksandra 370 IV contrast. Delayed images through the kidneys and coronal/sagittal reconstructions perform ed. CT DLP: 1248 mGycm Automated exposure control for dose reduction was used. FINDINGS: LUNG BASES: Underlying emphysema and strandy areas of atelectasis. Similar asymmetric elevation left hemidiaphragm. This may be due to diaphragmatic eventration. If concern for hemidiaphragmatic paralys is, fluoroscopic sniff test could be performed. 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 Portal venous system is paten t. No biliary ductal dilatation. Gallbladder surgically absent. PANCREAS: No significant abnormality is seen. SPLEEN: No significant abnormality is seen. ADRENALS: No significant abnormality is seen. KIDNEYS: Large right upper pole renal cyst measures 7.1 cm, unchanged from 03/03/2021. Otherwise, symm etric uptake and excretion of contrast from both kidneys. BOWEL: Some prominent fluid-filled small bowel loops scattered throughout the abdomen and pelvis prob ably transient. No dilated small bowel, free fluid, free air. Scattered mild stool. There is stable l ine from prior resection and re-anastomosis at the rectosigmoid junction. Some descending and sigmoid colonic diverticulosis is noted. No pericolic inflammatory change. Normal appendix. LYMPH NODES: A few right lower quadrant mesenteric lymph nodes show increasing size up to 1 cm, coron al image 45. Bilateral scarring calcifications infrarenal abdominal aorta and common iliac arteries. A few scattered surgical clips are present in the lower abdominal mesentery. PELVIS: The bladder collapsed. Numerous pelvic phleboliths. No abnormal fluid collection in the pelvi s or pelvic lymphadenopathy seen. BONES: Mild to moderate degenerative disc disease lower thoracic spine. Mild degenerative change both hips. Facet arthropathy mid to lower lumbar spine. IMPRESSION: 1. BORDERLINE ENLARGED CLUSTERED RIGHT LOWER QUADRANT MESENTERIC LYMPH NODES MEASURING UP TO 1 CM MAY BE REACTIVE/POSTINFLAMMATORY. THERE ARE ALSO SCATTERED PROMINENT FLUID-FILLED SMALL BOWEL LOOPS THRO UGHOUT THE ABDOMEN AND PELVIS. CONSIDER MESENTERIC ADENITIS/ENTERITIS. 2. A LARGE 7.1 CM RIGHT RENAL CYST REMAINS UNCHANGED FROM 03/03/2021. ALSO, NORMAL APPENDIX. PREVIOUS CHOLECYSTECTOMY. 3. PREVIOUS SURGERY AT THE DISTAL COLON. LEFT-SIDED COLONIC DIVERTICULOSIS WITHOUT EVIDENCE FOR ACUTE DIVERTICULITIS.
[2022-08-15 09:28] VITALS: BP 119/73; PULSE 74; RESP 18; TEMP 97.9
== END 2022-08-15 10:00 | disposition home or self-care (01) ==
LOC: EC 07:43
DX: I88.0 Nonspecific mesenteric lymphadenitis (principal); K52.9 Noninfective gastroenteritis and colitis, unspecified; N28.1 Cyst of kidney, acquired; K57.30 Diverticulosis of large intestine without perforation or abscess without bleeding; J44.9 Chronic obstructive pulmonary disease, unspecified; E78.5 Hyperlipidemia, unspecified; Z88.0 Allergy status to penicillin; Z88.1 Allergy status to other antibiotic agents; Z79.899 Other long term (current) drug therapy
CPT/HCPCS: 36415; 80053; 82150; 83605; 83690; 85025; 81003; 74177; 99284; 96374; 96375; 96361; J2405; J1170; Q9967

== ENCOUNTER 2023-04-09 11:15 | Inpatient (IN) | payer OTHER ==
--- NOTE | 2023-04-09 11:39 | ED ---
General Adult HPI - General Chief complaint: Shortness of Breath Stated complaint: chest pain, sob Time Seen by Provider: 04/09/23 11:24 Source: patient, RN notes reviewed Mode of arrival: wheelchair Limitations: no limitations - History of Present Illness Initial comments: 57-year-old male presents emergency Department chief complaint shortness breath, chest pain. Patient states her last week he's developed worsening exertional dyspnea. He states that he does have COPD and is a current smoker but has not noticed any wheezing. Patient went to urgent care sent here for further evaluation he was told his lungs were clear. He denies any significant cough or cold-like symptoms. He denies any leg. No history of CHF. He does have family cardiac history. Patient has just a pass with no significant changes. Patient states when he gets walking he has increasing shortness breath and chest pain. - Related Data Home Medications Medication Instructions Recorded Confirmed Albuterol Inhaler [Ventolin Hfa 1 - 2 puff INHALATION RT-QID PRN 04/09/23 04/09/23 Inhaler] Allergies Allergy/AdvReac Type Severity Reaction Status Date / Time amoxicillin [Amoxicillin] Allergy Rash/Hives Verified 04/09/23 11:55 vancomycin Allergy "red man Verified 04/09/23 11:55 syndrome" clavulanic acid AdvReac Rash/Hives Verified 04/09/23 11:55 [From Augmentin] Review of Systems ROS Statement: Those systems with pertinent positive or pertinent negative responses have been documented in the HPI. ROS Other: All systems not noted in ROS Statement are negative. Past Medical History Past Medical History: COPD, Hyperlipidemia, Neurologic Disorder, Pneumonia Additional Past Medical History / Comment(s): DIVERTICULITIS. BACK AND NECK PAIN, migraines from neck injury, severe whiplash 05/30. Hx Bronchitis. Neuropathy, twitching left thumb. History of Any Multi-Drug Resistant Organisms: None Reported Past Surgical History: Back Surgery, Bowel Resection, Cholecystectomy, Orthopedic Surgery, Tonsillectomy Additional Past Surgical History / Comment(s): L5 S1 laminectomy, right knee arthroscopy, plates and screws in neck Past Anesthesia/Blood Transfusion Reactions: No Reported Reaction Past Psychological History: No Psychological Hx Reported Smoking Status: Current every day smoker Past Alcohol Use History: None Reported Past Drug Use History: None Reported - Past Family History Mother Family Medical History: Cancer Additional Family Medical History / Comment(s): Breast Cancer. Father Family Medical History: Coronary Artery Disease (CAD) Brother(s) Family Medical History: Renal Disease Additional Family Medical History / Comment(s): Kidney and heart disease. General Exam Limitations: no limitations General appearance: alert, in no apparent distress Head exam: Present: atraumatic, normocephalic, normal inspection Eye exam: Present: normal appearance, PERRL, EOMI. Absent: scleral icterus, conjunctival injection, periorbital swelling ENT exam: Present: normal exam, mucous membranes moist Neck exam: Present: normal inspection, full ROM. Absent: tenderness, meningismus, lymphadenopathy Respiratory exam: Present: normal lung sounds bilaterally. Absent: respiratory distress, wheezes, rales, rhonchi, stridor Cardiovascular Exam: Present: regular rate, normal rhythm, normal heart sounds. Absent: systolic murmur, diastolic murmur, rubs, gallop, clicks GI/Abdominal exam: Present: soft, normal bowel sounds. Absent: distended, tenderness, guarding, rebound, rigid Course Vital Signs 04/09/23 04/09/23 04/09/23 11:16 12:00 12:30 Temperature 97.9 F Pulse Rate 78 77 78 Respiratory 20 16 18 Rate Blood Pressure 137/95 154/92 118/82 O2 Sat by Pulse 97 96 96 Oximetry 04/09/23 13:26 Temperature Pulse Rate 79 Respiratory 18 Rate Blood Pressure 124/88 O2 Sat by Pulse 96 Oximetry EKG Findings - EKG Comments: EKG Findings:: EKG performed at 11:34 sinus rhythm with a rate of 74 [place] 152 QRS 91 QT/QTC 378/406 - EKG Results: EKG: interpreted by QID Medical Decision Making - Medical Decision Making Was pt. sent in by a medical professional or institution (, PA, [facility], urgent care, hospital, or group home...) When possible be specific @ -No Did you speak to anyone other than the patient for history (EMS, parent, family, police, friend...)? What history was obtained from this source @ -No Did you review nursing and triage notes (agree or disagree)? Why? @ -I reviewed and agree with nursing and triage notes Were old charts reviewed (outside hosp., previous admission, EMS record, old EKG, old radiological studies, urgent care reports/EKG's, group home records)? Report findings @ -No old charts were reviewed Differential Diagnosis (chest pain, altered mental status, abdominal pain women, abdominal pain men, vaginal bleeding, weakness, fever, dyspnea, syncope, headache, dizziness, GI bleed, back pain, seizure, CVA, palpatations, mental health, musculoskeletal)? @ -nDifferential Chest Pain: Stable Angina, Unstable Angina, STEMI, NSTEMI Aortic Dissection, Pneumothorax, M usculoskeletal, Esophageal Spasm GERD, Cholecystitis, Pancreatitis, Zoster, this is not meant to be an all-inclusive list. ble EKG interpreted by me (3pts min.). @ -As above X-rays interpreted by me (1pt min.). @ -Chest x-ray shows no acute process CT interpreted by me (1pt min.). @ -None done U/S interpreted by me (1pt. min.). @ -None done What testing was considered but not performed or refused? (CT, X-rays, U/S, labs)? Why? @ -None What meds were considered but not given or refused? Why? @ -None Did you discuss the management of the patient with other professionals (professionals i.e. , PA, [facility], lab, RT, psych nurse, social worker school, occupational safety and health manager, teacher, public service officer, correctional case manager)? Give summary @ -[ sheet for admission with cardiology consult Was smoking cessation discussed for >3mins.? @ -No Was critical care preformed (if so, how long)? @ -No Were there social determinants of health that impacted care today? How? (Homelessness, low income, unemployed, alcoholism, drug addiction, tr ansportation, low edu. Level, literacy, decrease access to med. care, halfway, rehab)? @ -No Was there de-escalation of care discussed even if they declined (Discuss DNR or withdrawal of care, Hospice)? DNR status @ -No What co-morbidities impacted this encounter? (DM, HTN, Smoking, COPD, CAD, Cancer, CVA, ARF, Chemo, Hep., AIDS, mental health diagnosis, sleep apnea, morbid obesity)? @ -COPD Was patient admitted / discharged? Hospital course, mention meds given and route, prescriptions, significant lab abnormalities, going to OR and other pertinent info. @ -Admitted patient his having exertional chest pain, shortness of breath. Patient's workup is negative this time including d-dimer. Patient will need echocardiogram kier hand evaluation possible heart cath versus stress test. Undiagnosed new problem with uncertain prognosis? @ -No Drug Therapy requiring intensive monitoring for toxicity (Heparin, Nitro, Insulin, Cardizem)? @ -No Were any procedures done? @ -No Diagnosis/symptom? @ -Exertional chest pain, dyspnea Acute, or Chronic, or Acute on Chronic? @ -Acute Uncomplicated (without systemic symptoms) or Complicated (systemic symptoms)? @ -Complicated Side effects of treatment? @ -No Exacerbation, Progression, or Severe Exacerbation? @ -No Poses a threat to life or bodily function? How? (Chest pain, [place], [place], pneumonia, PE, COPD, DKA, ARF, appy, cholecystitis, CVA, Diverticulitis, Homicidal, Suicidal, threat to staff... and all critical care pts) @ -yes At risk for cardiac arrest - Lab Data Result diagrams: 04/09/23 11:55 04/09/23 11:55 Lab Results 04/09/23 04/09/23 04/09/23 Range/Units 11:55 11:55 11:55 WBC 9.2 (3.8-10.6) k/uL RBC 5.28 (4.30-5.90) m/uL Hgb 15.8 (13.0-17.5) gm/dL Hct 45.8 (39.0-53.0) % MCV 86.7 (80.0-100.0) fL MCH 29.8 (25.0-35.0) pg MCHC 34.4 (31.0-37.0) g/dL RDW 13.3 (11.5-15.5) % Plt Count 248 (150-450) k/uL MPV 8.0 Neutrophils % 51 % Lymphocytes % 35 % Monocytes % 10 % Eosinophils % 1 % Basophils % 1 % Neutrophils # 4.7 (1.3-7.7) k/uL Lymphocytes # 3.2 (1.0-4.8) k/uL Monocytes # 0.9 (0-1.0) k/uL Eosinophils # 0.1 (0-0.7) k/uL Basophils # 0.0 (0-0.2) k/uL PT 11.2 (9.0-12.0) sec INR 1.1 (<1.2) APTT 24.1 (22.0-30.0) sec D-Dimer 0.33 (<0.60) mg/L FEU Sodium 136 L (137-145) mmol/L Potassium 3.7 (3.5-5.1) mmol/L Chloride 106 (98-107) mmol/L Carbon Dioxide 23 (22-30) mmol/L Anion Gap 7 mmol/L BUN 12 (9-20) mg/dL Creatinine 0.61 L (0.66-1.25) mg/dL Est GFR (CKD-EPI)AfAm >90 (>60 ml/min/1.73 sqM) Est GFR (CKD-EPI)NonAf >90 (>60 ml/min/1.73 sqM) Glucose 131 H (74-99) mg/dL Calcium 9.0 (8.4-10.2) mg/dL Magnesium 1.8 (1.6-2.3) mg/dL Total Bilirubin 0.4 (0.2-1.3) mg/dL AST 26 (17-59) U/L ALT 25 (4-49) U/L Alkaline Phosphatase 96 (38-126) U/L Troponin I (0.000-0.034) ng/mL NT-Pro-B Natriuret Pep 45 pg/mL Total Protein 7.1 (6.3-8.2) g/dL Albumin 4.0 (3.5-5.0) g/dL 04/09/23 Range/Units 11:55 WBC (3.8-10.6) k/uL RBC (4.30-5.90) m/uL Hgb (13.0-17.5) gm/dL Hct (39.0-53.0) % MCV (80.0-100.0) fL MCH (25.0-35.0) pg MCHC (31.0-37.0) g/dL RDW (11.5-15.5) % Plt Count (150-450) k/uL MPV Neutrophils % % Lymphocytes % % Monocytes % % Eosinophils % % Basophils % % Neutrophils # (1.3-7.7) k/uL Lymphocytes # (1.0-4.8) k/uL Monocytes # (0-1.0) k/uL Eosinophils # (0-0.7) k/uL Basophils # (0-0.2) k/uL PT (9.0-12.0) sec INR (<1.2) APTT (22.0-30.0) sec D-Dimer (<0.60) mg/L FEU Sodium (137-145) mmol/L Potassium (3.5-5.1) mmol/L Chloride (98-107) mmol/L Carbon Dioxide (22-30) mmol/L Anion Gap mmol/L BUN (9-20) mg/dL Creatinine (0.66-1.25) mg/dL Est GFR (CKD-EPI)AfAm (>60 ml/min/1.73 sqM) Est GFR (CKD-EPI)NonAf (>60 ml/min/1.73 sqM) Glucose (74-99) mg/dL Calcium (8.4-10.2) mg/dL Magnesium (1.6-2.3) mg/dL Total Bilirubin (0.2-1.3) mg/dL AST (17-59) U/L ALT (4-49) U/L Alkaline Phosphatase (38-126) U/L Troponin I <0.012 (0.000-0.034) ng/mL NT-Pro-B Natriuret Pep pg/mL Total Protein (6.3-8.2) g/dL Albumin (3.5-5.0) g/dL Disposition Clinical Impression: Chest pain, Exertional dyspnea Disposition: ADMITTED IP TO THIS HOSP Condition: Fair Referrals: None,Stated [Primary Care Provider] - 1-2 days Time of Disposition: 13:18
--- NOTE | 2023-04-09 12:01 | XR ---
EXAMINATION TYPE: XR chest 2V DATE OF EXAM: 04/09/2023 COMPARISON: 06/24/2021 TECHNIQUE: PA and lateral views submitted. HISTORY: Chest pain FINDINGS: Elevated left hemidiaphragm. Postsurgical changes overlying the cervical spine. Seminal changes are n oted. Heart size normal and no overt failure. Osseous structures demonstrate hypertrophic and degener ative changes of the spine. IMPRESSION: 1. No acute process. 2. Stable elevated left hemidiaphragm can be associated with phrenic nerve paresis correlate clinical ly. Correlate for COPD..
[2023-04-09 12:15] LABS: ALT 25 U/L (4-49); AST 26 U/L (17-59); African American GFR (CKD) >90 (>60 ml/min/1.73 sqM); Alkaline Phosphatase 96 U/L (38-126); Anion Gap 7 mmol/L; Blood Urea Nitrogen 12 mg/dL (9-20); Carbon Dioxide 23 mmol/L (22-30); Chloride 106 mmol/L (98-107); Glucose 131 mg/dL (74-99); Magnesium 1.8 mg/dL (1.6-2.3); Non-African American GFR(CKD) >90 (>60 ml/min/1.73 sqM); Potassium 3.7 mmol/L (3.5-5.1); Sodium 136 mmol/L (137-145); Total Bilirubin 0.4 mg/dL (0.2-1.3); Total Protein 7.1 g/dL (6.3-8.2)
[2023-04-09 12:23] LABS: NT-Pro-B-Type Natriuretic Pept 45 pg/mL
[2023-04-09 12:34] LABS: Basophils % (A) 1 %; Eosinophils # (A) 0.1 k/uL (0-0.7); Eosinophils % (A) 1 %; HCT 45.8 % (39.0-53.0); HGB 15.8 gm/dL (13.0-17.5); Lymphocytes # (A) 3.2 k/uL (1.0-4.8); Lymphocytes % (A) 35 %; MCH 29.8 pg (25.0-35.0); MCHC 34.4 g/dL (31.0-37.0); MCV 86.7 fL (80.0-100.0); Monocytes # (A) 0.9 k/uL (0-1.0); Monocytes % (A) 10 %; Neutrophils # (A) 4.7 k/uL (1.3-7.7); Neutrophils % (A) 51 %; Platelet Count 248 k/uL (150-450); RBC 5.28 m/uL (4.30-5.90); RDW 13.3 % (11.5-15.5); WBC 9.2 k/uL (3.8-10.6)
[2023-04-09 12:35] LABS: INR 1.1 (<1.2); Partial Thromboplastin Time 24.1 sec (22.0-30.0); Prothrombin Time 11.2 sec (9.0-12.0)
[2023-04-09] MEDS ORDERED: ASPIRIN 81 MG PO STA (13:18)
[2023-04-09] MEDS ORDERED: NITROGLYCERIN SL TABS 0.4 MG TAB SUBLINGUAL PRN (13:18)
[2023-04-09] MEDS: FAMOTIDINE 20 MG/2 ML VIAL IV SCH ×2 (13:45→21:46)
[2023-04-09] MEDS ORDERED: DEXTROSE 50% SYRINGE 50 ML IVP PRN ×2 (16:48)
[2023-04-09] MEDS ORDERED: IPRATROPIUM-ALBUTEROL 3 ML NEB INHALATION STA (16:48)
--- NOTE | 2023-04-09 17:23 | CA ---
Transthoracic Echo Report Name: Abner Dempsey Age: 57 Gender: M : 1965 Exam Date: 04/09/2023 16:10 Exam Location: [facility] Ht (in): 73 Wt (lb): 202 Ordering Physician: Rubio Hart Attending/Referring Phys: [id number], Hailey Musical Instrument Mechanic Hermilo Bruce Procedure CPT: Indications: chest pain, exertional dyspnea Cardiac Hx: Technical Quality: Technically difficult study Contrast 1: Lumason Total Dose (mL): 5 Contrast 2: Total Dose (mL): MEASUREMENTS (Male / Female) Normal Values 2D ECHO LV Diastolic Diameter PLAX 3.5 cm 4.2 - 5.9 / 3.9 - 5.3 cm LV Systolic Diameter PLAX 2.6 cm IVS Diastolic Thickness 1.3 cm 0.6 - 1.0 / 0.6 - 0.9 cm LVPW Diastolic Thickness 1.2 cm 0.6 - 1.0 / 0.6 - 0.9 cm LV Relative Wall Thickness 0.7 RV Internal Dim ED PLAX 1.9 cm LVOT Diameter 2.2 cm Aortic Root Diameter 3.6 cm LA Systolic Diameter LX 2.2 cm 3.0 - 4.0 / 2.7 - 3.8 cm LV Diastolic Volume MOD BP 74.4 cm??? 67 - 155 / 56 - 104 cm??? LV Systolic Volume MOD BP 30.4 cm??? 22 - 58 / 19 - 49 cm??? LV Ejection Fraction MOD BP 59.2 % >= 55 % LV Cardiac Index MOD BP 1329.7 cm???/min???m??? LV Diastolic Volume MOD 4C 91.2 cm??? LV Systolic Volume MOD 4C 26.1 cm??? LV Ejection Fraction MOD 4C 71.4 % LV Cardiac Index MOD 4C 1966.9 cm???/min???m??? LV Diastolic Length 4C 7.9 cm LV Systolic Length 4C 6.4 cm LV Diastolic Volume MOD 2C 53.0 cm??? LV Systolic Volume MOD 2C 34.2 cm??? LV Ejection Fraction MOD 2C 35.6 % LV Cardiac Index MOD 2C 570.1 cm???/min???m??? LV Diastolic Length 2C 6.9 cm LV Systolic Length 2C 6.2 cm LA Volume 53.7 cm??? 18 - 58 / 22 - 52 cm??? DOPPLER AV Peak Velocity 110.3 cm/s AV Peak Gradient 4.9 mmHg LVOT Peak Velocity 99.0 cm/s LVOT Peak Gradient 3.9 mmHg AV Area Cont Eq pk 3.5 cm??? MR Peak Velocity 329.8 cm/s MR Peak Gradient 43.5 mmHg Mitral E Point Velocity 80.8 cm/s Mitral A Point Velocity 79.8 cm/s Mitral E to A Ratio 1.0 MV Deceleration Time 208.8 ms MV E' Velocity 10.0 cm/s Mitral E to MV E' Ratio 8.1 FINDINGS Left Ventricle Mildly increased septal wall thickness. Left ventricular ejection fraction is estimated at 50%. Right Ventricle Normal right ventricular size. Right Atrium Normal right atrial size. Left Atrium Normal left atrial size. Mitral Valve Structurally normal mitral valve. Mild MR. Aortic Valve Aortic valve not well visualized. Grossly normal. No aortic valve stenosis or regurgitation. Tricuspid Valve Tricuspid valve not well visualized. Trace TR. Pulmonic Valve Pulmonic valve not well visualized. No pulmonic regurgitation. Pericardium Normal pericardium. Aorta Normal size aortic root. CONCLUSIONS Mild increased left ventricular wall thickness Left ventricular ejection fraction 50% Mild mitral regurgitation Trace tricuspid regurgitation Previewed by: Dr. Romeo Rashid DO (Electronically Signed) Final Date: 09 April 2023 17:21
[2023-04-09 17:30] LABS: Glucose,Whole Blood 159 mg/dL (70-110)
[2023-04-09] MEDS: INSULIN ASPART (NovoLOG) 100 UNIT/ML VIAL SQ SCH ×2 (17:59→20:53)
[2023-04-09] MEDS: methylPREDNISolone SOD SUCCI 125 MG/2 ML VIAL IV SCH (18:01)
[2023-04-09] MEDS: IPRATROPIUM-ALBUTEROL 3 ML NEB INHALATION PRN (19:45)
[2023-04-09] MEDS: SYMBICORT 160-4.5 MCG INHALER INHALATION SCH (19:46)
[2023-04-09 20:46] LABS: Glucose,Whole Blood 123 mg/dL (70-110)
[2023-04-09] MEDS: HEPARIN SODIUM,PORCINE/PF 5,000 UNIT/0.5 ML SYRINGE SQ SCH (21:46)
--- NOTE | 2023-04-09 22:48 | P.HPIM ---
History of Present Illness This is a pleasant 57 years old male with past medical history of COPD, nicotine dependence, hyperlipidemia, chronic back pain and migraines and neuropathy Patient presents because of chest pain associated with dyspnea and it white phlegm of few days duration Patient denies abdominal pain or dysuria No headache dizziness weakness or numbness Patient's's smoke cigarettes without specification, no alcohol or illicit tracts Vitas looks stable He has unremarkable CBC, INR, BMP, liver enzymes troponin D-dimer is negative at 0.33 ProBNP is negative at 45. EKG: Normal sinus rhythm at [address]-T changes. Chest x-ray: No acute process. COPD. Stable elevated left hemidiaphragm Review of Systems Review of systems CONSTITUTIONAL: No fever, no malaise, no fatigue. HEENT: No recent visual problems or hearing problems. Denied any sore throat. CARDIOVASCULAR: No orthopnea, PND, no palpitations, no syncope. PULMONARY: No sneezing or sore throat, no hemoptysis. GASTROINTESTINAL: No diarrhea, no nausea, no vomiting, no abdominal pain. Normoactive bowel sounds. NEUROLOGICAL: No headaches, no weakness, no numbness. HEMATOLOGICAL: Denies any bleeding or petechiae. GENITOURINARY: Denies any burning micturition, frequency, or urgency. MUSCULOSKELETAL/RHEUMATOLOGICAL: Denies any joint pain, swelling, or any muscle pain. ENDOCRINE: Denies any polyuria or polydipsia. Past Medical History Past Medical History: COPD, Hyperlipidemia, Neurologic Disorder, Pneumonia Additional Past Medical History / Comment(s): DIVERTICULITIS. BACK AND NECK PAIN, migraines from neck injury, severe whiplash 05/30. Hx Bronchitis. Neuropathy, twitching left thumb. History of Any Multi-Drug Resistant Organisms: None Reported Past Surgical History: Back Surgery, Bowel Resection, Cholecystectomy, Orthopedic Surgery, Tonsillectomy Additional Past Surgical History / Comment(s): L5 S1 laminectomy, right knee arthroscopy, plates and screws in neck Past Anesthesia/Blood Transfusion Reactions: No Reported Reaction Past Psychological History: No Psychological Hx Reported Smoking Status: Current every day smoker Past Alcohol Use History: None Reported Past Drug Use History: None Reported - Past Family History Mother Family Medical History: Cancer Additional Family Medical History / Comment(s): Breast Cancer. Father Family Medical History: Coronary Artery Disease (CAD) Brother(s) Family Medical History: Renal Disease Additional Family Medical History / Comment(s): Kidney and heart disease. Medications and Allergies Home Medications Medication Instructions Recorded Confirmed Type Albuterol Inhaler [Ventolin Hfa 1 - 2 puff INHALATION RT-QID PRN 04/09/23 04/09/23 History Inhaler] Allergies Allergy/AdvReac Type Severity Reaction Status Date / Time amoxicillin [Amoxicillin] Allergy Rash/Hives Verified 04/09/23 11:55 vancomycin Allergy "red man Verified 04/09/23 11:55 syndrome" clavulanic acid AdvReac Rash/Hives Verified 04/09/23 11:55 [From Augmentin] Physical Exam Vitals: Vital Signs Temp Pulse Resp BP Pulse Ox 04/09/23 12:30 78 18 118/82 96 04/09/23 12:00 77 16 154/92 96 04/09/23 11:16 97.9 F 78 20 137/95 97 Intake and Output 04/08/23 04/09/23 04/09/23 22:59 06:59 14:59 Other: Weight 91.626 kg GENERAL: The patient is alert and oriented x3, not in any acute distress. Well developed, well nourished. HEENT: Pupils are round and equally reacting to light. EOMI. No scleral icterus. No conjunctival pallor. Normocephalic, atraumatic. No pharyngeal erythema. No thyromegaly. CARDIOVASCULAR: S1 and S2 present. No murmurs, rubs, or gallops. -PULMONARY: Chest is clear to auscultation, no wheezing , no crackles. Decreased air entry in both sides ABDOMEN: Soft, nontender, nondistended, normoactive bowel sounds. No palpable organomegaly. MUSCULOSKELETAL: No joint swelling or deformity. EXTREMITIES: No cyanosis, clubbing, or pedal edema. NEUROLOGICAL: Gross neurological examination did not reveal any focal deficits. SKIN: No rashes. no petechiae. Results CBC & Chem 7: 04/09/23 11:55 04/09/23 11:55 Labs: Abnormal Lab Results - Last 24 Hours (Table) 04/09/23 Range/Units 11:55 Sodium 136 L (137-145) mmol/L Creatinine 0.61 L (0.66-1.25) mg/dL Glucose 131 H (74-99) mg/dL Assessment and Plan Assessment: Chest pain, rule out cardiac causes COPD with exacerbation Nicotine dependence Hyperlipidemia Nicotine dependence Chronic back pain , status post chronic back pain and migraines and neuropathy History of migraines and neuropathy Plan: Continuou serial troponin Continue with aspirin cardiology consult start breathing treatment and IV syndrome 60 mg, steroids can be switched to burst taper prednisone uponphysical exam Labs and medication were reviewed.. Continue same treatment. Continue with symptomatic treatment. Resume home medication. Monitor labs and vitals. DVT and GI prophylaxis. Further recommendations as per clinical course of the patient DVT prophylaxis: Subcutaneous heparin GI Prophylaxis: Pepcid Prognosis is guarded
[2023-04-10] MEDS: methylPREDNISolone SOD SUCCI 125 MG/2 ML VIAL IV SCH ×4 (00:23→18:43)
[2023-04-10] MEDS: INSULIN ASPART (NovoLOG) 100 UNIT/ML VIAL SQ SCH ×4 (05:54→20:35)
[2023-04-10 05:55] LABS: Glucose,Whole Blood 147 mg/dL (70-110)
[2023-04-10] MEDS: IPRATROPIUM-ALBUTEROL 3 ML NEB INHALATION PRN ×2 (08:03→18:16)
[2023-04-10] MEDS: SYMBICORT 160-4.5 MCG INHALER INHALATION SCH ×2 (08:03→18:16)
[2023-04-10] MEDS ORDERED: ASPIRIN 325 MG TAB PO SCH (09:00)
[2023-04-10 09:19] LABS: Chol/HDL Ratio 6.06 Ratio; LDL Cholesterol,Calculated 176.7 mg/dL (0.0-131.0)
[2023-04-10] MEDS: ASPIRIN 81 MG PO SCH (09:52)
[2023-04-10] MEDS: FAMOTIDINE 20 MG/2 ML VIAL IV SCH ×2 (09:53→20:35)
[2023-04-10] MEDS: HEPARIN SODIUM,PORCINE/PF 5,000 UNIT/0.5 ML SYRINGE SQ SCH ×2 (09:53→20:35)
[2023-04-10] MEDS ORDERED: ALPRAZolam 0.5 MG TAB PO PRN (10:25)
[2023-04-10] MEDS ORDERED: ATORVASTATIN 80 MG TAB PO STA (10:25)
[2023-04-10] MEDS ORDERED: ASPIRIN 325 MG TAB PO STA (10:25)
[2023-04-10] MEDS ORDERED: NITROGLYCERIN SL TABS 0.4 MG TAB SUBLINGUAL PRN (10:25)
[2023-04-10] MEDS ORDERED: ALPRAZolam 0.25 MG TAB PO PRN (10:25)
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
[2023-04-10] MEDS ORDERED: SODIUM CHLORIDE 0.9% 1,000 ML IV ONE (12:17)
[2023-04-10] MEDS ORDERED: MIDAZOLAM 2 MG/2 ML VIAL IVP ONE (12:22)
[2023-04-10] MEDS ORDERED: fentaNYL (PF) 50 MCG/ML 2 ML AMP IVP ONE (12:22)
[2023-04-10] MEDS ORDERED: LIDOCAINE 1% INJ 10MG/ML (5 ML VIAL-PF) SQ ONE (12:23)
[2023-04-10] MEDS ORDERED: VERAPAMIL SYRINGE (5 MG/10 ML) INTRAARTER ONE (12:25)
[2023-04-10] MEDS ORDERED: HEPARIN SODIUM 1,000 UN/ML (10ML VL) IV ONE (12:27)
[2023-04-10] MEDS ORDERED: IOPAMIDOL-370 100ML BTL INJ ONE (12:51)
--- NOTE | 2023-04-10 12:57 | P.CARDCATH ---
Description of Procedure: PROCEDURES PERFORMED: Left heart catheterization, bilateral coronary angiography, ultrasound guided arterial access INDICATION: Pain worse with exertion concerning for unstable angina CONSENT:I have discussed the risks, benefits and alternative therapies for the above-mentioned procedure and for both sedation/analgesia as well as necessary blood product administration, if indicated, as they pertain to this patient. The patient has indicated understanding and acceptance of the risks and procedures discussed. PROCEDURE: After the risks, benefits and alternatives of the above mentioned procedure explained in detail with the patient, informed consent was obtained. Patient was taken to the catheterization lab and prepped and draped in usual fashion. Ultrasound guidance was used to assess for arterial access. 1% lidocaine was used to anesthetize the right radial artery. A 6-Burmese sheath was placed in the right radial artery using modified Seldinger technique and ultrasound guidance. Left coronary angiography was performed with a 5-Burmese JL 3.5 catheter and right coronary angiography was performed with a 6-Burmese AR2 catheter in various views. A 5-Burmese FR5 catheter was inserted into the left ventricle and pressure measurements were obtained. The right radial sheath was removed and a TR band was placed with hemostasis achieved. The patient tolerated the procedure well. Patient was transported back to the post catheterization holding area in stable condition. Conscious Sedation: Patient was monitored under the direct supervision of myself for conscious sedation using Versed and fentanyl for a total duration of 18 minutes HEMODYNAMICS: Ao: 148/87 LV: 141/8, LVEDP 18 SELECTIVE CORONARY ARTERIOGRAPHY: LEFT MAIN: The left main is a large caliber vessel which gives off the LAD with no left circumflex. There is no significant stenosis. LEFT ANTERIOR DESCENDING CORONARY ARTERY: LAD is a large caliber vessel which wraps around to the apex. There are mild 10-20% LAD stenoses. ANOMOLOUS LEFT CIRCUMFLEX CORONARY ARTERY FROM RIGHT CORONARY CUSP: Circumflex is a large caliber vessel with mild 20% stenosis. RIGHT CORONARY ARTERY: The right coronary artery is a large caliber vessel which gives off a PDA and PLV branch and is the dominant vessel. There are mild 20- 30% stenoses FINAL IMPRESSION: 1. CAD as described above including 10-20% LAD, 20% circumflex, 20-30% RCA stenoses. 2. Anomolous circumflex from right coronary cusp 3. Mildly elevated left sided filling pressures PLAN: 1. Aggressive risk factor modification per most recent ACC/AHA guidelines. 2. Follow-up in the office in 1-2 weeks.
[2023-04-10] MEDS: SODIUM CHLORIDE 0.9% 1,000 ML in EMPTY BAG 1 BAG IV SCH ×2 (13:12→21:08)
[2023-04-10 17:37] LABS: Glucose,Whole Blood 157 mg/dL (70-110)
[2023-04-10 20:27] LABS: Glucose,Whole Blood 171 mg/dL (70-110)
[2023-04-10] MEDS ORDERED: ATORVASTATIN 80 MG TAB PO SCH (21:00)
--- NOTE | 2023-04-10 23:23 | P.PN ---
Subjective This is a pleasant 57 years old male with past medical history of COPD, nicotine dependence, hyperlipidemia, chronic back pain and migraines and neuropathy Patient presents because of chest pain associated with dyspnea and it white phlegm of few days duration Patient denies abdominal pain or dysuria No headache dizziness weakness or numbness Patient's's smoke cigarettes without specification, no alcohol or illicit tracts Vitas looks stable He has unremarkable CBC, INR, BMP, liver enzymes troponin D-dimer is negative at 0.33 ProBNP is negative at 45. EKG: Normal sinus rhythm at [address]-T changes. Chest x-ray: No acute process. COPD. Stable elevated left hemidiaphragm 04/29/2023 Chest pain improved and described by the patient as to-3/10 in severity Wheezing improving Bus Cleaner taking the patient cardiac cath today. Objective - Vital Signs Vital signs: Vital Signs Temp 97.9 F 04/10/23 14:57 Pulse 90 04/10/23 18:25 Resp 16 04/10/23 15:45 BP 102/65 04/10/23 15:45 Pulse Ox 94 L 04/10/23 15:45 FiO2 Intake & Output 04/10/23 04/10/23 04/11/23 06:59 18:59 06:59 Intake Total 168 Balance 168 Weight 91.626 kg Intake: IV 50 Oral 118 Other: # Voids 1 1 1 - Exam GENERAL: The patient is alert and oriented x3, not in any acute distress. Well developed, well nourished. HEENT: Pupils are round and equally reacting to light. EOMI. No scleral icterus. No conjunctival pallor. Normocephalic, atraumatic. No pharyngeal erythema. No thyromegaly. CARDIOVASCULAR: S1 and S2 present. No murmurs, rubs, or gallops. PULMONARY: Chest is clear to auscultation, no wheezing , no crackles. ABDOMEN: Soft, nontender, nondistended, normoactive bowel sounds. No palpable organomegaly. MUSCULOSKELETAL: No joint swelling or deformity. EXTREMITIES: No cyanosis, clubbing, or pedal edema. NEUROLOGICAL: Gross neurological examination did not reveal any focal deficits. SKIN: No rashes. no petechiae. - Labs CBC & Chem 7: 04/09/23 11:55 04/09/23 11:55 Labs: Abnormal Lab Results - Last 24 Hours (Table) 04/09/23 04/10/23 04/10/23 Range/Units 11:55 03:54 05:53 POC Glucose (mg/dL) 147 H (70-110) mg/dL Hemoglobin A1c 6.3 H (<=6.0) % Cholesterol 237.00 H (0.00-200.00) mg/dL LDL Cholesterol, Calc 176.7 H (0.0-131.0) mg/dL HDL Cholesterol 39.10 L (40.00-60.00) mg/dL 04/10/23 04/10/23 Range/Units 17:36 20:25 POC Glucose (mg/dL) 157 H 171 H (70-110) mg/dL Hemoglobin A1c (<=6.0) % Cholesterol (0.00-200.00) mg/dL LDL Cholesterol, Calc (0.0-131.0) mg/dL HDL Cholesterol (40.00-60.00) mg/dL Assessment and Plan Assessment: Chest pain, rule out cardiac causes COPD with exacerbation Nicotine dependence Hyperlipidemia Nicotine dependence Chronic back pain , status post chronic back pain and migraines and neuropathy History of migraines and neuropathy Plan: Cardiac cath today with manager utilization management Continue with aspirin cardiology consult Switch to oral prednisone from tomorrow. Patient was instructed to follow up with cw operator Dr. Baird as an outpatient in 1-2 weeks and he agrees Labs and medication were reviewed.. Continue same treatment. Continue with symptomatic treatment. Resume home medication. Monitor labs and vitals. DVT and GI prophylaxis. Further recommendations as per clinical course of the patient DVT prophylaxis: Subcutaneous heparin GI Prophylaxis: Pepcid Prognosis is guarded
[2023-04-11 04:17] VITALS: TEMP 97.5
[2023-04-11 06:09] LABS: Glucose,Whole Blood 133 mg/dL (70-110)
[2023-04-11] MEDS: INSULIN ASPART (NovoLOG) 100 UNIT/ML VIAL SQ SCH (06:09)
[2023-04-11] MEDS ORDERED: HEPARIN SODIUM,PORCINE 10,000 UNIT in SODIUM CHLORIDE 0.9% 1,000 ML IRRIGATION PRN (07:00)
[2023-04-11] MEDS ORDERED: HEPARIN SODIUM,PORCINE (1 ML) 2,500 UNIT in SODIUM CHLORIDE 0.9% 250 ML IRRIGATION PRN (07:00)
[2023-04-11] MEDS: FAMOTIDINE 20 MG/2 ML VIAL IV SCH (08:17)
[2023-04-11] MEDS: ASPIRIN 81 MG PO SCH (08:17)
[2023-04-11] MEDS: HEPARIN SODIUM,PORCINE/PF 5,000 UNIT/0.5 ML SYRINGE SQ SCH (08:17)
[2023-04-11 08:59] VITALS: BP 117/71; RESP 16
[2023-04-11] MEDS: IPRATROPIUM-ALBUTEROL 3 ML NEB INHALATION PRN (08:59)
[2023-04-11] MEDS: SYMBICORT 160-4.5 MCG INHALER INHALATION SCH (08:59)
[2023-04-11] MEDS ORDERED: predniSONE 10 MG TAB PO SCH (09:00)
[2023-04-11 09:09] VITALS: PULSE 88
[2023-04-11] MEDS: SODIUM CHLORIDE 0.9% 1,000 ML in EMPTY BAG 1 BAG IV SCH (10:20)
--- NOTE | 2023-04-11 10:46 | P.PN ---
Subjective HISTORY OF PRESENT ILLNESS: This is a 57-year-old male with a past medical history significant for COPD, acting dependence, and hyperlipidemia. Patient follows in the office with Dr. Sheffield but has last been seen in the office in January 2020. We have been asked to see the patient in consultation for chest pain. Patient examined at the bedside. Patient states he began having chest pain about 5 days ago. He states that he usually has baseline shortness of breath from his COPD but his shortness of breath has been getting worse for the past 5 days. He states he gets chest pain anytime he exerts himself. He states if he walks up a flight of stairs at home he is extremely dyspneic and having a lot of chest pressure. He states that he has to sit down and relax and the chest pain will eventually resolve on its own. He states the pain radiates to between his shoulder blades. The patient states he went to urgent care for evaluation as he thought maybe his COPD was acting up but he was told that his lung sounded good and he was told to come to the emergency room. The patient received 4 aspirin in the emergency room which helped his discomfort. He still reports some mild chest pressure this morning. The patient states he was previously prescribed statin therapy for hyperlipidemia as his most recent LDL when he was seen in the cardiology office was 221. He states he has not been taking his cholesterol medication for approximately 2-3 years. The patient reports a family history of coronary artery disease. He states he has a brother who has had 7 heart attacks. He also reports his other siblings have a history of CVA, myocardial infarction, and atrial fibrillation. * EKG reveals sinus mechanism with no signs of acute ischemia * Chest xray negative for acute process. Stable elevated left hemidiaphragm can be associated with phrenic nerve paresis. Correlate clinically. Correlate for COPD. * Laboratory data: WBC 9.2. Hemoglobin 15.8. Platelet count 248. D-dimer 0.33. Sodium 136 pre-potassium 3.7. BUN 12. Creatinine 0.61. BNP 45. Troponin negative 1. * Current home cardiac medications include none * Echocardiogram completed revealing ejection fraction 50%, mild MR, trace TR * Patient underwent Lexiscan stress test in May 2020 which was negative for ischemia 04/11/2023 Patient underwent cardiac catheterization yesterday with Dr. Rashid revealing 10-20% LAD stenosis, 20% circumflex, and 20-30% RCA stenosis mild elevated left- sided filling pressures. Echocardiogram completed revealing ejection fraction 50%, mild MR, and trace TR. Patient examined this morning at the bedside. He denies chest pain or pressure. He denies shortness of breath. Vital signs are stable. PHYSICAL EXAM: VITAL SIGNS: Reviewed. GENERAL: Well-developed in no acute distress. HEENT: Head is normocephalic. Pupils are equal, round. Sclerae anicteric. Mucous membranes of the mouth are moist. Neck supple. No JVD or thyromegaly LUNGS: Respirations even and unlabored. Lungs clear to auscultation HEART: Regular rate and rhythm. S1 and S2 heard. ABDOMEN: Soft. Nondistended. Nontender. EXTREMITIES: Normal range of motion. No clubbing or cyanosis. Peripheral pulses intact. No lower extremity edema NEUROLOGIC: Awake and alert. Oriented x 3. ASSESSMENT: Chest pain, status post cardiac catheterization revealing mild coronary artery disease Hyperlipidemia, not complaint with statin therapy History of COPD Nicotine dependence Family history of coronary artery disease PLAN: Continue current cardiac medications Smoking cessation recommended Patient is stable for discharge home today from a cardiac standpoint He is to follow up in the office with Dr. Rashid Nurse practitioner note has been reviewed by physician. Signing provider agrees with the documented findings, assessment, and plan of care. Objective - Vital Signs Vital signs: Vital Signs Temp 97.5 F L 04/11/23 07:00 Pulse 88 04/11/23 09:09 Resp 16 04/11/23 07:00 BP 117/71 04/11/23 07:00 Pulse Ox 95 04/11/23 09:01 FiO2 Intake & Output 04/10/23 04/11/23 04/11/23 18:59 06:59 18:59 Intake Total 168 118 Balance 168 118 Intake: IV 50 Oral 118 118 Other: # Voids 1 2 - Labs CBC & Chem 7: 04/09/23 11:55 04/09/23 11:55 Labs: Abnormal Lab Results - Last 24 Hours (Table) 04/09/23 04/10/23 04/10/23 Range/Units 11:55 17:36 20:25 POC Glucose (mg/dL) 157 H 171 H (70-110) mg/dL Hemoglobin A1c 6.3 H (<=6.0) % 04/11/23 Range/Units 06:07 POC Glucose (mg/dL) 133 H (70-110) mg/dL Hemoglobin A1c (<=6.0) %
== END 2023-04-11 10:43 | disposition home or self-care (01) | DRG 287 ==
LOC: EC 11:15 → 6NMEDSUR 13:17 → OBSVTOIN 04-11 07:16
PROVIDERS: ADMIT Internal Medicine; ATTEND Internal Medicine
PROC: 4A023N7 Measurement of Cardiac Sampling and Pressure, Left Heart, Percutaneous Approach (ICD-10-PCS; principal; 2023-04-11)
PROC: B2111ZZ Fluoroscopy of Multiple Coronary Arteries using Low Osmolar Contrast (ICD-10-PCS; 2023-04-11)
DX: I25.110 Atherosclerotic heart disease of native coronary artery with unstable angina pectoris (principal); E78.5 Hyperlipidemia, unspecified; J44.9 Chronic obstructive pulmonary disease, unspecified; F17.210 Nicotine dependence, cigarettes, uncomplicated; G89.29 Other chronic pain; M54.9 Dorsalgia, unspecified; G62.9 Polyneuropathy, unspecified; I08.1 Rheumatic disorders of both mitral and tricuspid valves; G43.909 Migraine, unspecified, not intractable, without status migrainosus; Z82.49 Family history of ischemic heart disease and other diseases of the circulatory system; G58.8 Other specified mononeuropathies; J98.6 Disorders of diaphragm; Z88.1 Allergy status to other antibiotic agents; Z90.49 Acquired absence of other specified parts of digestive tract; Z87.19 Personal history of other diseases of the digestive system; Z87.01 Personal history of pneumonia (recurrent); J40 Bronchitis, not specified as acute or chronic
CPT/HCPCS: 36415; 71046; 76937; 80053; 80061; 83036; 83735; 83880; 84484; 85025; 85379; 85610; 85730; 93005; 93306; 93458; 94640; 94760; 96374; 96376; 99285

== ENCOUNTER 2023-04-14 14:15 | Emergency (ER) | payer OTHER ==
--- NOTE | 2023-04-14 14:41 | ED ---
General Adult HPI - General Chief complaint: Chest Pain Stated complaint: chest pain, sob Time Seen by Provider: 04/14/23 14:20 Source: patient, RN notes reviewed, old records reviewed Mode of arrival: ambulatory Limitations: no limitations - History of Present Illness Initial comments: 57 -year-old male presenting for reevaluation of chest pain and exertional dyspnea. Patient was admitted, received workup including heart catheterization which showed mild coronary artery disease. No stents were placed. He presents today for reevaluation as he continues to have chest pain. Pain today is between his shoulder blades. Sharp in nature. It is associated with dyspnea. Denies fever. Patient does report a nonproductive cough. Denies diaphoresis. No vomiting. No lower extremity pain or swelling. - Related Data Home Medications Medication Instructions Recorded Confirmed predniSONE See Taper PO DIRECTED 04/14/23 04/14/23 Previous Rx's Medication Instructions Recorded Albuterol Inhaler [Ventolin Hfa 1 - 2 puff INHALATION RT-QID PRN 04/11/23 Inhaler] #1 each Aspirin 81 mg PO DAILY #30 tab 04/11/23 Atorvastatin [Lipitor] 80 mg PO HS #30 tab 04/11/23 Famotidine [Pepcid] 20 mg PO DAILY #21 tablet 04/11/23 Albuterol Nebulized [Ventolin 2.5 mg INHALATION Q4H #75 ml 04/14/23 Nebulized] Allergies Allergy/AdvReac Type Severity Reaction Status Date / Time amoxicillin [Amoxicillin] Allergy Rash/Hives Verified 04/14/23 17:03 vancomycin Allergy "red man Verified 04/14/23 17:03 syndrome" clavulanic acid AdvReac Rash/Hives Verified 04/14/23 17:03 [From Augmentin] Review of Systems ROS Statement: Those systems with pertinent positive or pertinent negative responses have been documented in the HPI. ROS Other: All systems not noted in ROS Statement are negative. Past Medical History Past Medical History: COPD, Hyperlipidemia, Neurologic Disorder, Pneumonia Additional Past Medical History / Comment(s): DIVERTICULITIS. BACK AND NECK PAIN, migraines from neck injury, severe whiplash 05/30. Hx Bronchitis. Neuropathy, twitching left thumb. History of Any Multi-Drug Resistant Organisms: None Reported Past Surgical History: Back Surgery, Bowel Resection, Cholecystectomy, Heart Catheterization, Orthopedic Surgery, Tonsillectomy Additional Past Surgical History / Comment(s): L5 S1 laminectomy, right knee arthroscopy, plates and screws in neck Past Anesthesia/Blood Transfusion Reactions: No Reported Reaction Past Psychological History: No Psychological Hx Reported Smoking Status: Current every day smoker Past Alcohol Use History: None Reported Past Drug Use History: None Reported - Past Family History Mother Family Medical History: Cancer Additional Family Medical History / Comment(s): Breast Cancer. Father Family Medical History: Coronary Artery Disease (CAD) Brother(s) Family Medical History: Renal Disease Additional Family Medical History / Comment(s): Kidney and heart disease. General Exam Limitations: no limitations General appearance: alert, in no apparent distress Head exam: Present: atraumatic, normocephalic Eye exam: Present: normal appearance, PERRL ENT exam: Present: normal exam Neck exam: Present: normal inspection. Absent: tenderness, meningismus Respiratory exam: Present: wheezes, decreased breath sounds. Absent: respiratory distress, accessory muscle use Cardiovascular Exam: Present: normal rhythm, tachycardia GI/Abdominal exam: Present: soft. Absent: distended, tenderness Extremities exam: Present: normal inspection, normal capillary refill. Absent: pedal edema Neurological exam: Present: alert, oriented X3, CN II-XII intact. Absent: motor sensory deficit Psychiatric exam: Present: normal affect, normal mood Skin exam: Present: warm, dry, intact Course Vital Signs 04/14/23 14:17 Temperature 98.0 F Pulse Rate 128 H Respiratory 24 Rate Blood Pressure 169/89 O2 Sat by Pulse 95 Oximetry Medical Decision Making - Medical Decision Making Was pt. sent in by a medical professional or institution (, PA, SURFACE HYDROLOGIST, urgent care, hospital, or usp...) When possible be specific @ -No Did you speak to anyone other than the patient for history (EMS, parent, family, police, friend...)? What history was obtained from this source @ -[Patient's Did you review nursing and triage notes (agree or disagree)? Why? @ -I reviewed and agree with nursing and triage notes Were old charts reviewed (outside hosp., previous admission, EMS record, old EKG, old radiological studies, urgent care reports/EKG's, usp records)? Report findings @ Reviewed heart catheterization with non-obstructive CAD Differential Diagnosis (chest pain, altered mental status, abdominal pain women, abdominal pain men, vaginal bleeding, weakness, fever, dyspnea, syncope, headache, dizziness, GI bleed, back pain, seizure, CVA, palpatations, mental health, musculoskeletal)? @ -[Differential Chest Pain: Stable Angina, Unstable Angina, STEMI, NSTEMI Aortic Dissection, Pneumothorax, Musculoskeletal, Esophageal Spasm GERD, Cholecystitis, Pancreatitis, Zoster, this is not meant to be an all-inclusive list. EKG interpreted by me (3pts min.). @Sinus tachycardia rate of 121, AK interval 116, QRS duration 89, QTC 396 X-rays interpreted by me (1pt min.). @ -Single view chest, negative for pneumothorax, no focal pneumonia CT interpreted by me (1pt min.). @ -CT angiography performed which is negative for pulmonary embolism U/S interpreted by me (1pt. min.). @ -None done What testing was considered but not performed or refused? (CT, X-rays, U/S, labs)? Why? @ -None What meds were considered but not given or refused? Why? @ -None Did you discuss the management of the patient with other professionals (professionals i.e. , PA, SURFACE HYDROLOGIST, lab, RT, psych nurse, social research assistant, telesales team leader, teacher, juvenile detention officer, catalytic case operator)? Give summary @ -No Was smoking cessation discussed for >3mins.? @ -No Was critical care preformed (if so, how long)? @ -No Were there social determinants of health that impacted care today? How? (Homelessness, low income, unemployed, alcoholism, drug addiction, transportation, low edu. Level, literacy, decrease access to med. care, alf, rehab)? @ -No Was there de-escalation of care discussed even if they declined (Discuss DNR or withdrawal of care, Hospice)? DNR status @ -No What co-morbidities impacted this encounter? (DM, HTN, Smoking, COPD, CAD, Cancer, CVA, ARF, Chemo, Hep., AIDS, mental health diagnosis, sleep apnea, morbid obesity)? @ -COPD, CAD Was patient admitted / discharged? Hospital course, mention meds given and route, prescriptions, significant lab abnormalities, going to OR and other pertinent info. @ -57-year-old male presenting with dyspnea and atypical chest pain. Patient had heart catheterization performed which showed mild CAD. He does have COPD and with the chest pain and dyspnea he was concerned about pulmonary embolism. CT angiography was performed which was negative for PE, no acute findings. Patient has normal CBC, normal CMP, negative troponin. I did offer observation for treatment of COPD with associated pleuritic chest pain. Patient declines he prefers discharge. He will continue the oral steroids that he has been prescribed and continue his albuterol. Return with worsening or changing symptoms. Undiagnosed new problem with uncertain prognosis? @ -No Drug Therapy requiring intensive monitoring for toxicity (Heparin, Nitro, Insulin, Cardizem)? @ -No Were any procedures done? @ -No Diagnosis/symptom? @ -[COPD with atypical chest pain Acute, or Chronic, or Acute on Chronic? @ -Acute Uncomplicated (without systemic symptoms) or Complicated (systemic symptoms)? @ -Complicated Side effects of treatment? @ -No Exacerbation, Progression, or Severe Exacerbation? @ -No Poses a threat to life or bodily function? How? (Chest pain, [place], [place], pneumonia, PE, COPD, DKA, ARF, appy, cholecystitis, CVA, Diverticulitis, Homicidal, Suicidal, threat to staff... and all critical care pts) @ -Moderate risk at this time, COPD, chest pain - Lab Data Result diagrams: 04/14/23 14:33 04/14/23 14:33 Lab Results 04/14/23 04/14/23 04/14/23 Range/Units 14:33 14:33 14:33 WBC 18.5 H (3.8-10.6) k/uL RBC 5.39 (4.30-5.90) m/uL Hgb 16.0 (13.0-17.5) gm/dL Hct 47.1 (39.0-53.0) % MCV 87.3 (80.0-100.0) fL MCH 29.7 (25.0-35.0) pg MCHC 34.0 (31.0-37.0) g/dL RDW 13.5 (11.5-15.5) % Plt Count 333 (150-450) k/uL MPV 8.0 Neutrophils % 79 % Lymphocytes % 13 % Monocytes % 6 % Eosinophils % 1 % Basophils % 0 % Neutrophils # 14.6 H (1.3-7.7) k/uL Lymphocytes # 2.4 (1.0-4.8) k/uL Monocytes # 1.1 H (0-1.0) k/uL Eosinophils # 0.2 (0-0.7) k/uL Basophils # 0.1 (0-0.2) k/uL PT 11.0 (9.0-12.0) sec INR 1.0 (<1.2) APTT 21.8 L (22.0-30.0) sec Sodium 136 L (137-145) mmol/L Potassium 4.2 (3.5-5.1) mmol/L Chloride 105 (98-107) mmol/L Carbon Dioxide 21 L (22-30) mmol/L Anion Gap 10 mmol/L BUN 15 (9-20) mg/dL Creatinine 0.89 (0.66-1.25) mg/dL Est GFR (CKD-EPI)AfAm >90 (>60 ml/min/1.73 sqM) Est GFR (CKD-EPI)NonAf >90 (>60 ml/min/1.73 sqM) Glucose 186 H (74-99) mg/dL Calcium 9.3 (8.4-10.2) mg/dL Magnesium 1.9 (1.6-2.3) mg/dL Total Bilirubin 0.4 (0.2-1.3) mg/dL AST 34 (17-59) U/L ALT 43 (4-49) U/L Alkaline Phosphatase 90 (38-126) U/L Troponin I (0.000-0.034) ng/mL Total Protein 7.0 (6.3-8.2) g/dL Albumin 4.2 (3.5-5.0) g/dL 04/14/23 Range/Units 14:33 WBC (3.8-10.6) k/uL RBC (4.30-5.90) m/uL Hgb (13.0-17.5) gm/dL Hct (39.0-53.0) % MCV (80.0-100.0) fL MCH (25.0-35.0) pg MCHC (31.0-37.0) g/dL RDW (11.5-15.5) % Plt Count (150-450) k/uL MPV Neutrophils % % Lymphocytes % % Monocytes % % Eosinophils % % Basophils % % Neutrophils # (1.3-7.7) k/uL Lymphocytes # (1.0-4.8) k/uL Monocytes # (0-1.0) k/uL Eosinophils # (0-0.7) k/uL Basophils # (0-0.2) k/uL PT (9.0-12.0) sec INR (<1.2) APTT (22.0-30.0) sec Sodium (137-145) mmol/L Potassium (3.5-5.1) mmol/L Chloride (98-107) mmol/L Carbon Dioxide (22-30) mmol/L Anion Gap mmol/L BUN (9-20) mg/dL Creatinine (0.66-1.25) mg/dL Est GFR (CKD-EPI)AfAm (>60 ml/min/1.73 sqM) Est GFR (CKD-EPI)NonAf (>60 ml/min/1.73 sqM) Glucose (74-99) mg/dL Calcium (8.4-10.2) mg/dL Magnesium (1.6-2.3) mg/dL Total Bilirubin (0.2-1.3) mg/dL AST (17-59) U/L ALT (4-49) U/L Alkaline Phosphatase (38-126) U/L Troponin I <0.012 (0.000-0.034) ng/mL Total Protein (6.3-8.2) g/dL Albumin (3.5-5.0) g/dL Disposition Clinical Impression: Chest pain, COPD exacerbation Disposition: HOME SELF-CARE Condition: Fair Instructions (If sedation given, give patient instructions): Chest Pain (ED), COPD (Chronic Obstructive Pulmonary Disease) (ED) Prescriptions: Albuterol Nebulized [Ventolin Nebulized] 2.5 mg INHALATION Q4H #75 ml Is patient prescribed a controlled substance at d/c from ED?: No Referrals: Maris Sloan DO [Primary Care Provider] - 1-2 days Time of Disposition: 17:07
[2023-04-14 14:49] LABS: Basophils # (A) 0.1 k/uL (0-0.2); Basophils % (A) 0 %; Eosinophils # (A) 0.2 k/uL (0-0.7); Eosinophils % (A) 1 %; HCT 47.1 % (39.0-53.0); Lymphocytes # (A) 2.4 k/uL (1.0-4.8); Lymphocytes % (A) 13 %; MCH 29.7 pg (25.0-35.0); MCV 87.3 fL (80.0-100.0); Monocytes # (A) 1.1 k/uL (0-1.0); Monocytes % (A) 6 %; Neutrophils # (A) 14.6 k/uL (1.3-7.7); Neutrophils % (A) 79 %; Platelet Count 333 k/uL (150-450); RBC 5.39 m/uL (4.30-5.90); RDW 13.5 % (11.5-15.5); WBC 18.5 k/uL (3.8-10.6)
[2023-04-14 15:00] LABS: ALT 43 U/L (4-49); AST 34 U/L (17-59); African American GFR (CKD) >90 (>60 ml/min/1.73 sqM); Albumin 4.2 g/dL (3.5-5.0); Alkaline Phosphatase 90 U/L (38-126); Anion Gap 10 mmol/L; Blood Urea Nitrogen 15 mg/dL (9-20); Calcium 9.3 mg/dL (8.4-10.2); Carbon Dioxide 21 mmol/L (22-30); Chloride 105 mmol/L (98-107); Glucose 186 mg/dL (74-99); Magnesium 1.9 mg/dL (1.6-2.3); Non-African American GFR(CKD) >90 (>60 ml/min/1.73 sqM); Potassium 4.2 mmol/L (3.5-5.1); Sodium 136 mmol/L (137-145); Total Bilirubin 0.4 mg/dL (0.2-1.3)
--- NOTE | 2023-04-14 15:37 | XR ---
EXAMINATION TYPE: XR chest 1V portable DATE OF EXAM: 04/14/2023 COMPARISON: 04/09/2023 INDICATION: Chest pain TECHNIQUE: Single frontal view of the chest is obtained. FINDINGS: The heart size is normal. The pulmonary vasculature is normal. The lungs are clear. There is elevation of the left diaphragm. IMPRESSION: 1. No acute pulmonary process.
[2023-04-14 15:41] LABS: Partial Thromboplastin Time 21.8 sec (22.0-30.0)
--- NOTE | 2023-04-14 16:45 | CT ---
CT CHEST FOR PULMONARY EMBOLISM. EXAMINATION TYPE: CT angio chest DATE OF EXAM: 04/14/2023 INDICATION: CP/KRISTEL. Pain between shoulder blades. Heart cath last Sunday. CT DLP: 505.6 mGycm, Automated exposure control for dose reduction was used. CONTRAST: Patient injected with 100 ml mL of Isovue 370. COMPARISON: 12/26/2019 TECHNIQUE: CT of the chest is performed on a spiral scan at 2 mm thick sections. Study is performed with intravenous contrast timed for evaluation for pulmonary embolism. This will limit additional po rtions of the evaluation. 3-D MIP images reconstructed by the technologist are reviewed on the compu ter in the coronal and sagittal planes. FINDINGS: No persistent filling defects are evident to suggest an acute pulmonary embolism. No mediastinal or hilar adenopathy enlarged by CT criteria is evident. The ascending aorta diameter at the level of the main pulmonary artery is 3.3 cm. The main pulmonary artery diameter at the bifur cation is 2.8 cm. Lung windows are clear. Small scattered blebs are present in the lung apices. There are some scattere d bulla within the upper lung ahn. Some mild peribronchial thickening may be present. Limited CT section through the upper abdomen. There is a 6.6 cm cyst posterior superior right kidney. Abdomen is otherwise unremarkable. IMPRESSIONS: 1. No acute pulmonary embolism.
[2023-04-14 17:04] VITALS: PULSE 87
[2023-04-14 17:18] VITALS: BP 136/89; RESP 18; TEMP 97.8
== END 2023-04-14 17:18 | disposition home or self-care (01) ==
LOC: EC 14:15
DX: J44.1 Chronic obstructive pulmonary disease with (acute) exacerbation (principal); F17.200 Nicotine dependence, unspecified, uncomplicated; Z88.1 Allergy status to other antibiotic agents; Z88.0 Allergy status to penicillin
CPT/HCPCS: 36415; 93005; 80053; 83735; 84484; 85025; 85610; 85730; 71045; 71275; 99285; Q9967

== ENCOUNTER 2023-04-29 20:41 | Emergency (ER) | payer OTHER ==
[2023-04-29 20:48] VITALS: RESP 18
--- NOTE | 2023-04-29 21:07 | ED ---
Chest Pain HPI - General Chief Complaint: Chest Pain Stated Complaint: Chest Pain, Shortness of breath Time Seen by Provider: 04/29/23 21:05 Source: patient, RN notes reviewed, old records reviewed Mode of arrival: ambulatory Limitations: no limitations - History of Present Illness Initial Comments: This is a 57-year-old male to the emergency department for evaluation. Patient presents today for evaluation regards to elevated heart rate can't catch his breath right-sided chest pain and weakness. Multiple recent evaluations here. Multiple ER visits recently as well as follow-up on the outpatient basis. Patient admits to his heart rate being elevated and especially with exertion he is severely short of breath. MD Complaint: chest pain, other (Shortness of breath especially with exertion) -: week(s) Onset: during rest, during exertion Pain Location: substernal, right chest Severity: moderate Severity scale (1-10): 5 Quality: dull Consistency: constant Improves With: nothing Worsens With: exertion, inspiration Context: recent illness Anginal Symptoms: dyspnea Other Symptoms: palpitations Treatments Prior to Arrival: none - Related Data Home Medications Medication Instructions Recorded Confirmed predniSONE See Taper PO DIRECTED 04/14/23 04/14/23 Previous Rx's Medication Instructions Recorded Albuterol Inhaler [Ventolin Hfa 1 - 2 puff INHALATION RT-QID PRN 04/11/23 Inhaler] #1 each Aspirin 81 mg PO DAILY #30 tab 04/11/23 Atorvastatin [Lipitor] 80 mg PO HS #30 tab 04/11/23 Famotidine [Pepcid] 20 mg PO DAILY #21 tablet 04/11/23 Albuterol Nebulized [Ventolin 2.5 mg INHALATION Q4H #75 ml 04/14/23 Nebulized] Allergies Allergy/AdvReac Type Severity Reaction Status Date / Time amoxicillin [Amoxicillin] Allergy Rash/Hives Verified 04/29/23 20:48 vancomycin Allergy "red man Verified 04/29/23 20:48 syndrome" clavulanic acid AdvReac Rash/Hives Verified 04/29/23 20:48 [From Augmentin] Review of Systems ROS Statement: Those systems with pertinent positive or pertinent negative responses have been documented in the HPI. ROS Other: All systems not noted in ROS Statement are negative. EKG Findings - EKG Comments: EKG Findings:: EKG sinus tachycardia 103 AR 128 QRS 77 QTC 383 - EKG Results: EKG: interpreted by DOUGLAS Past Medical History Past Medical History: COPD, Hyperlipidemia, Neurologic Disorder, Pneumonia Additional Past Medical History / Comment(s): DIVERTICULITIS. BACK AND NECK PAIN, migraines from neck injury, severe whiplash 05/30. Hx Bronchitis. Neuropathy, twitching left thumb. History of Any Multi-Drug Resistant Organisms: None Reported Past Surgical History: Back Surgery, Bowel Resection, Cholecystectomy, Heart Catheterization, Orthopedic Surgery, Tonsillectomy Additional Past Surgical History / Comment(s): L5 S1 laminectomy, right knee arthroscopy, plates and screws in neck, heart cath Past Anesthesia/Blood Transfusion Reactions: No Reported Reaction Past Psychological History: No Psychological Hx Reported Smoking Status: Current every day smoker Past Alcohol Use History: None Reported Past Drug Use History: None Reported - Past Family History Mother Family Medical History: Cancer Additional Family Medical History / Comment(s): Breast Cancer. Father Family Medical History: Coronary Artery Disease (CAD) Brother(s) Family Medical History: Renal Disease Additional Family Medical History / Comment(s): Kidney and heart disease. General Exam Limitations: no limitations General appearance: alert, in no apparent distress, anxious Head exam: Present: atraumatic, normocephalic, normal inspection Eye exam: Present: normal appearance, PERRL, EOMI. Absent: scleral icterus, conjunctival injection, periorbital swelling ENT exam: Present: normal exam, mucous membranes moist Neck exam: Present: normal inspection. Absent: tenderness, meningismus, lymphadenopathy Respiratory exam: Present: normal lung sounds bilaterally. Absent: respiratory distress, wheezes, rales, rhonchi, stridor Cardiovascular Exam: Present: regular rate, normal rhythm, normal heart sounds. Absent: systolic murmur, diastolic murmur, rubs, gallop, clicks GI/Abdominal exam: Present: soft, normal bowel sounds. Absent: distended, tenderness, guarding, rebound, rigid Extremities exam: Present: normal inspection, full ROM, normal capillary refill. Absent: tenderness, pedal edema, joint swelling, calf tenderness Back exam: Present: normal inspection Neurological exam: Present: alert, oriented X3, CN II-XII intact Psychiatric exam: Present: normal affect, normal mood Skin exam: Present: warm, dry, intact, normal color. Absent: rash Course Vital Signs 0804/29/23 04/29/23 20:46 22:00 22:20 Temperature 98.0 F Pulse Rate 75 103 H 119 H Respiratory 18 18 Rate Blood Pressure 144/77 123/83 O2 Sat by Pulse 95 97 Oximetry 04/29/23 04/30/23 22:38 00:04 Temperature 98.4 F Pulse Rate 90 90 Respiratory 18 18 Rate Blood Pressure 110/82 O2 Sat by Pulse 96 99 Oximetry - Reevaluation(s) Reevaluation #1: 04/29/23 22:50 Medical record is reviewed Reevaluation #2: 04/29/23 22:50 Patient symptoms unchanged Reevaluation #3: 04/29/23 22:50 Patient informed results questions answered Reevaluation #4: 04/29/23 22:50 Was pt. sent in by a medical professional or institution (DANNY Pizarro, COAT OPERATOR INSULATOR, urgent care, hospital, or [facility]...) When possible be specific @ -no Did you speak to anyone other than the patient for history (EMS, parent, family, police, friend...)? What history was obtained from this source @ -no Did you review nursing and triage notes (agree or disagree)? Why? @ -agree Are old charts reviewed (outside hosp., previous admission, EMS record, old EKG, old radiological studies, urgent care reports/EKG's, [facility] records)? Report findings @ -yes Differential Diagnosis (chest pain, altered mental status, abdominal pain women, abdominal pain men, vaginal bleeding, weakness, fever, dyspnea, syncope, headache, dizziness, GI bleed, back pain, seizure, CVA, palpatations, mental health, musculoskeletal)? @ -prior EKG interpreted by me (3pts min.). @ -yes X-rays interpreted by me (1pt min.). @ -yes CT interpreted by me (1pt min.). @ -no U/S interpreted by me (1pt. min.). @ -no What testing was considered but not performed or refused? (CT, X-rays, U/S, labs)? Why? @ -none What meds were considered but not given or refused? Why? @ -none Did you discuss the management of the patient with other professionals (professionals i.e. DANNY Pizarro, COAT OPERATOR INSULATOR, lab, RT, psych nurse, social sciences department chair, driller machine, teacher, licensing officer, case worker)? Give summary @ -no Was smoking cessation discussed for >3mins.? @ -no Was critical care preformed (if so, how long)? @ -no Were there social determinants of health that impacted care today? How? (Homelessness, low income, unemployed, alcoholism, drug addiction, transportation, low edu. Level, literacy, decrease access to med. care, long-term, rehab)? @ -none Was there de-escalation of care discussed even if they declined (Discuss DNR or withdrawal of care, Hospice)? DNR status @ -no What co-morbidities impacted this encounter? (DM, HTN, Smoking, COPD, CAD, Cancer, CVA, ARF, Chemo, Hep., AIDS, mental health diagnosis, sleep apnea, morbid obesity)? @ -none Was patient admitted / discharged? Hospital course, mention meds given and route, prescriptions, significant lab abnormalities, going to OR and other pertinent info. @ - 57 male to the emergency department for evaluation of chest pain palpitations shortness of breath exertional dyspnea. Patient symptoms are impr claudia here in the ER is able to ambulate without significant distress and can be discharged home Discharge Undiagnosed new problem with uncertain prognosis? @ -no Drug Therapy requiring intensive monitoring for toxicity (Heparin, Nitro, Insulin, Cardizem)? @ -no Were any procedures done? @ -no Diagnosis/symptom? @ -Palpitations, chest pain Acute, or Chronic, or Acute on Chronic? @ -Acute Uncomplicated (without systemic symptoms) or Complicated (systemic symptoms)? @ -Complicated Side effects of treatment? @ -no Exacerbation, Progression, or Severe Exacerbation? @ -exacerbation Poses a threat to life or bodily function? How? (Chest pain, [place], [place], pneumonia, PE, COPD, DKA, ARF, appy, cholecystitis, CVA, Diverticulitis, Homicidal, Suicidal, threat to staff... and all critical care pts) @ -Yes with chest pain palpitations Reevaluation #5: 04/29/23 22:50 Differential Dyspnea: Coronary syndrome, arrhythmia, tamponade, asthma, COPD, pulmonary embolism, pneumonia, pneumothorax, pulmonary effusion, anaphylaxis, diabetic ketoacidosis, flailed chest, pulmonary contusion, diaphragmatic rupture, anemia, neuromuscular, this is not meant to be an all-inclusive list. Differential Palpitations Ventricular arrhythmias, atrial arrhythmias, myocardial infarction, anemia, thyrotoxicosis, electrolyte imbalance, hypokalemia, pulmonary embolism, pulmonary disease, drugs, alcohol, anxiety, stress.... This is not meant to be an all-inclusive list. Chest Pain MDM - MDM 57 male to the emergency department for evaluation of chest pain palpitations shortness of breath exertional dyspnea. Patient symptoms are improved here in the ER is able to ambulate without significant distress and can be discharged home Disposition Clinical Impression: Smoker, Exertional dyspnea, COPD exacerbation, Atypical chest pain, Palpitations Disposition: HOME SELF-CARE Condition: Good Instructions (If sedation given, give patient instructions): Chest Pain (ED) Is patient prescribed a controlled substance at d/c from ED?: No Referrals: Maris Sloan DO [Primary Care Provider] - 1-2 days Time of Disposition: 23:50
[2023-04-29 21:25] LABS: Basophils # (A) 0.1 k/uL (0-0.2); Basophils % (A) 0 %; Eosinophils # (A) 0.2 k/uL (0-0.7); Eosinophils % (A) 1 %; HCT 45.1 % (39.0-53.0); HGB 15.1 gm/dL (13.0-17.5); Lymphocytes # (A) 3.7 k/uL (1.0-4.8); Lymphocytes % (A) 22 %; MCH 29.2 pg (25.0-35.0); MCHC 33.6 g/dL (31.0-37.0); MCV 86.9 fL (80.0-100.0); Mean Platelet Volume 7.5; Monocytes # (A) 1.2 k/uL (0-1.0); Monocytes % (A) 7 %; Neutrophils # (A) 10.8 k/uL (1.3-7.7); Neutrophils % (A) 66 %; Platelet Count 310 k/uL (150-450); RBC 5.19 m/uL (4.30-5.90); RDW 13.7 % (11.5-15.5); WBC 16.4 k/uL (3.8-10.6)
--- NOTE | 2023-04-29 21:40 | XR ---
EXAMINATION TYPE: XR chest 1V portable DATE OF EXAM: 04/29/2023 9:36 PM COMPARISON: Chest radiographs from 04/14/2023 TECHNIQUE: XR chest 1V portable Frontal view of the chest. CLINICAL INDICATION:Male, 57 years old with history of chest pain; FINDINGS: Lungs/Pleura: Elevated left diaphragm remains present. There is no evidence of pleural effusion, foca l consolidation, or pneumothorax. Pulmonary vascularity: Unremarkable. Heart/mediastinum: Cardiomediastinal silhouette is unremarkable. Musculoskeletal: No acute osseous pathology. IMPRESSION: No acute cardiopulmonary disease/process.
[2023-04-29 21:51] LABS: Partial Thromboplastin Time 22.1 sec (22.0-30.0); Prothrombin Time 10.7 sec (9.0-12.0)
[2023-04-29] MEDS ORDERED: METOPROLOL TARTRATE 5 MG/5 ML VIAL IVP STA (22:21)
[2023-04-29] MEDS ORDERED: SODIUM CHLORIDE 0.9% 1,000 ML IV STA (22:21)
[2023-04-29] MEDS ORDERED: SODIUM CHLORIDE 0.9% 500 ML 500 ML IV STA (22:21)
[2023-04-29 22:32] LABS: ALT 29 U/L (4-49); AST 28 U/L (17-59); African American GFR (CKD) >90 (>60 ml/min/1.73 sqM); Albumin 3.8 g/dL (3.5-5.0); Alkaline Phosphatase 85 U/L (38-126); Anion Gap 9 mmol/L; Blood Urea Nitrogen 15 mg/dL (9-20); Calcium 9.1 mg/dL (8.4-10.2); Carbon Dioxide 22 mmol/L (22-30); Chloride 103 mmol/L (98-107); Glucose 107 mg/dL (74-99); Lipase 136 U/L (23-300); Magnesium 1.9 mg/dL (1.6-2.3); Non-African American GFR(CKD) >90 (>60 ml/min/1.73 sqM); Sodium 134 mmol/L (137-145); Total Bilirubin 0.6 mg/dL (0.2-1.3); Total Protein 6.8 g/dL (6.3-8.2)
[2023-04-29 22:38] VITALS: PULSE 90
[2023-04-29 22:40] LABS: NT-Pro-B-Type Natriuretic Pept 21 pg/mL
[2023-04-30 00:05] VITALS: BP 110/82; TEMP 98.4
== END 2023-04-30 00:05 | disposition home or self-care (01) ==
LOC: EC 20:41
DX: J44.1 Chronic obstructive pulmonary disease with (acute) exacerbation (principal); R06.09 Other forms of dyspnea; F17.200 Nicotine dependence, unspecified, uncomplicated; Z88.0 Allergy status to penicillin; Z88.6 Allergy status to analgesic agent; Z88.8 Allergy status to other drugs, medicaments and biological substances; Z90.49 Acquired absence of other specified parts of digestive tract; Z88.1 Allergy status to other antibiotic agents
CPT/HCPCS: 36415; 71045; 80053; 83690; 83735; 83880; 84443; 84484; 85025; 85610; 85730; 93005; 96361; 96374; 99285

== ENCOUNTER → 2023-05-24 | Outpatient (CLI) | payer OTHER ==
--- NOTE | 2023-05-24 21:53 | FL ---
EXAMINATION TYPE: FL sniff test without CXR DATE OF EXAM: 05/24/2023 Comparison: Radiograph 04/29/2023 Clinical History: 57-year-old male previous neck injury, J98.6 DISORDER OF DIAPHRAGM Technique: Real-time fluoroscopy was performed during quiet breathing, deep inspiration expiration, a nd sniffing maneuver. Total fluoroscopy time: 47 seconds. Total images: 10. 217.87 mGycm2 DAP Findings: * At rest, there is asymmetric elevation of the left hemidiaphragm. * On quiet breathing, there is concordant movement but with sluggish initiation on the left and slig htly diminished excursion. * Similar findings on deep inspiration expiration. * However, on sniffing maneuver, there is anurag paradoxical movement on the left. 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
== END | disposition home or self-care (01) ==
LOC: RADUSWWP 09:46
PROVIDERS: ATTEND Internal Medicine Critical Care Medicine
DX: J98.6 Disorders of diaphragm (principal)
CPT/HCPCS: 76000

== ENCOUNTER 2023-12-03 16:09 | Emergency (ER) | payer OTHER, BC ==
[2023-12-03 16:20] VITALS: TEMP 97.6
[2023-12-03 16:37] LABS: Basophils % (A) 0 %; Eosinophils # (A) 0.1 k/uL (0-0.7); Eosinophils % (A) 1 %; HCT 49.6 % (39.0-53.0); HGB 16.2 gm/dL (13.0-17.5); Lymphocytes # (A) 2.4 k/uL (1.0-4.8); Lymphocytes % (A) 15 %; MCH 29.4 pg (25.0-35.0); MCHC 32.6 g/dL (31.0-37.0); MCV 90.3 fL (80.0-100.0); Mean Platelet Volume 7.8; Monocytes # (A) 1.4 k/uL (0-1.0); Monocytes % (A) 9 %; Neutrophils # (A) 11.8 k/uL (1.3-7.7); Neutrophils % (A) 74 %; Platelet Count 401 k/uL (150-450); RBC 5.49 m/uL (4.30-5.90); RDW 13.1 % (11.5-15.5); WBC 16.1 k/uL (3.8-10.6)
[2023-12-03 16:49] LABS: ALT 45 U/L (4-49); AST 30 U/L (17-59); African American GFR (CKD) >90 (>60 ml/min/1.73 sqM); Albumin 4.6 g/dL (3.5-5.0); Alkaline Phosphatase 89 U/L (38-126); Amylase 51 U/L (30-110); Anion Gap 9 mmol/L; Blood Urea Nitrogen 12 mg/dL (9-20); Calcium 9.9 mg/dL (8.4-10.2); Carbon Dioxide 19 mmol/L (22-30); Chloride 109 mmol/L (98-107); Glucose 176 mg/dL (74-99); Lipase 94 U/L (23-300); Non-African American GFR(CKD) >90 (>60 ml/min/1.73 sqM); Potassium 4.5 mmol/L (3.5-5.1); Sodium 137 mmol/L (137-145); Total Bilirubin 0.5 mg/dL (0.2-1.3); Total Protein 7.5 g/dL (6.3-8.2)
--- NOTE | 2023-12-03 16:49 | XR ---
EXAMINATION TYPE: XR chest 2V DATE OF EXAM: 12/03/2023 COMPARISON: 11/05/2023 HISTORY: Chest pain TECHNIQUE: Frontal and lateral views of the chest are obtained. FINDINGS: There is moderate stable elevation of the left hemidiaphragm. There is mild interstitial prominence which is stable compared to previous and possibly reflects mild chronic interstitial changes. There is no abnormal airspace consolidation. There is no pleural effusion or pneumothorax. The heart and pulmonary vasculature are normal. The oss eous structures are intact IMPRESSION: 1. No acute cardiopulmonary disease. 2. Stable moderate elevation left hemidiaphragm. 3. Stable mild interstitial prominence, likely chronic.
[2023-12-03 16:56] LABS: Partial Thromboplastin Time 22.6 sec (22.0-30.0); Prothrombin Time 11.1 sec (10.0-12.5)
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
[2023-12-03] MEDS: SODIUM CHLORIDE 0.9% 1,000 ML IV ONE (18:00)
[2023-12-03 18:08] LABS: Appearance,Urine Clear (Clear); Bilirubin,Urine Negative (Negative); Blood,Urine Negative (Negative); Color,Urine Colorless; Glucose,Urine (UA) Negative (Negative); Ketones,Urine Negative (Negative); Leukocyte Esterase,Urine Negative (Negative); Nitrite,Urine Negative (Negative); Protein,Urine Negative (Negative); Specific Gravity,Urine 1.013 (1.001-1.035); Urobilinogen,Urine <2.0 mg/dL (<2.0)
--- NOTE | 2023-12-03 18:21 | CT ---
EXAMINATION TYPE: CT abdomen pelvis w con DATE OF EXAM: 12/03/2023 COMPARISON: 08/15/2022 HISTORY: llq pain CT DLP: 1245.9 mGycm Automated exposure control for dose reduction was used. TECHNIQUE: Helical acquisition of images was performed from the lung bases through the pelvis. CONTRAST: Performed without Oral Contrast and with IV Contrast, patient injected with 100ml mL of Isovue 300. FINDINGS: The lung bases are clear. There is surgical absence of the gallbladder. There is no biliary ductal dilatation. There is no focal mass or organomegaly involving the liver, pancreas, spleen or adrenal glands. There is no solid renal mass or hydronephrosis and there is homogeneous contrast enhancement of the r enal parenchyma. There is a stable large right simple cortical cyst. The caliber the abdominal aorta is normal is no retroperitoneal adenopathy or hemorrhage. The bowel loops are normal in caliber and there is no evidence of dilatation or obstruction. No infla mmatory changes are identified in the bowel wall or mesentery. There is no free intraperitoneal air or fluid. No pelvic mass, free fluid, abscess or adenopathy. The osseous structures and soft tissues are intact. IMPRESSION: No significant abnormality seen.
[2023-12-03] MEDS: IPRATROPIUM-ALBUTEROL 3 ML NEB INHALATION STA (19:35)
[2023-12-03 20:04] VITALS: BP 118/62; PULSE 71; RESP 18
== END 2023-12-03 19:38 | disposition home or self-care (01) ==
LOC: EC 16:09
DX: J44.9 Chronic obstructive pulmonary disease, unspecified (principal); R10.32 Left lower quadrant pain; J98.6 Disorders of diaphragm; R00.0 Tachycardia, unspecified; F17.200 Nicotine dependence, unspecified, uncomplicated; Z79.899 Other long term (current) drug therapy; Z88.0 Allergy status to penicillin; Z88.1 Allergy status to other antibiotic agents; Z90.49 Acquired absence of other specified parts of digestive tract
CPT/HCPCS: 99285; 96360; 36415; 93005; 85379; 80053; 82150; 83605; 83690; 84484; 85025; 85610; 85730; 81003; 71046; 74177; Q9967

== ENCOUNTER → 2023-12-03 | Outpatient (CLI) | payer BC ==
--- NOTE | 2023-12-03 15:51 | FL ---
Fluoroscopy INDICATION: Pain FINDINGS: Fluoroscopy time: 21 seconds. Total dose area product (DAP) in uGy*m?, mGy*cm? (or similar): 99.74 Images obtained: 70. FINDINGS: Left diaphragm is elevated. With quiet breathing there is mild excursion of the left diaphragm. With sniffing there is mild excursion of left diaphragm. IMPRESSION: 1. Relative paralysis of the left diaphragm. No paradoxical motion identified.
== END | disposition home or self-care (01) ==
LOC: RADUSWWP 09:47
PROVIDERS: ATTEND Internal Medicine Critical Care Medicine
DX: J98.6 Disorders of diaphragm (principal)
CPT/HCPCS: 76000

== ENCOUNTER 2024-02-12 11:43 | Observation (INO) | payer OTHER, BC ==
[2024-02-12 12:38] LABS: Basophils % (A) 0 %; Eosinophils # (A) 0.2 k/uL (0-0.7); Eosinophils % (A) 2 %; HCT 47.1 % (39.0-53.0); HGB 15.4 gm/dL (13.0-17.5); Lymphocytes % (A) 22 %; MCH 28.8 pg (25.0-35.0); MCHC 32.7 g/dL (31.0-37.0); MCV 87.8 fL (80.0-100.0); Mean Platelet Volume 7.8; Monocytes % (A) 8 %; Neutrophils # (A) 8.8 k/uL (1.3-7.7); Neutrophils % (A) 66 %; Platelet Count 345 k/uL (150-450); RBC 5.37 m/uL (4.30-5.90); RDW 12.9 % (11.5-15.5); WBC 13.3 k/uL (3.8-10.6)
[2024-02-12 12:52] LABS: ALT 29 U/L (4-49); AST 28 U/L (17-59); African American GFR (CKD) >90 (>60 ml/min/1.73 sqM); Albumin 4.3 g/dL (3.5-5.0); Alkaline Phosphatase 106 U/L (38-126); Anion Gap 5 mmol/L; Blood Urea Nitrogen 10 mg/dL (9-20); Calcium 9.4 mg/dL (8.4-10.2); Carbon Dioxide 23 mmol/L (22-30); Chloride 109 mmol/L (98-107); Glucose 103 mg/dL (74-99); Magnesium 1.8 mg/dL (1.6-2.3); Non-African American GFR(CKD) >90 (>60 ml/min/1.73 sqM); Potassium 3.7 mmol/L (3.5-5.1); Sodium 137 mmol/L (137-145); Total Bilirubin 0.6 mg/dL (0.2-1.3)
[2024-02-12 12:53] LABS: INR 1.6 (<1.2); Partial Thromboplastin Time 27.1 sec (22.0-30.0)
--- NOTE | 2024-02-12 13:06 | ED ---
General Adult HPI - General Chief complaint: Chest Pain Stated complaint: Neck pain, tightness in chest Time Seen by Provider: 02/12/24 12:20 Source: patient, RN notes reviewed, old records reviewed Mode of arrival: ambulatory Limitations: no limitations - History of Present Illness Initial comments: This is a 58-year-old male who has a past medical history significant for smoking diabetes and high cholesterol as well as a strong family history of hea rt disease. Patient comes in today because he started having some pain in his right trapezius muscle which seems to be reproducible and increases with movement. Patient states it was more concerning to him he was having some chest tightness across his chest and he was more short of breath than normal. Patient denies any fever chills or cough. Patient denies any diaphoresis patient denies any nausea vomiting. Patient has any abdominal pain. Patient has any calf pain or swelling. - Related Data Home Medications Medication Instructions Recorded Confirmed Albuterol Nebulized [Ventolin 2.5 mg INHALATION RT-Q4H PRN 11/05/23 02/12/24 Nebulized] Atorvastatin [Lipitor] 80 mg PO DAILY 11/05/23 02/12/24 Fluticasone Propion/Salmeterol 1 puff INHALATION RT-BID 02/12/24 02/12/24 [Advair 500-50 Diskus] Metformin (Unknown Strength) 1 dose PO DIRECTED 02/12/24 02/12/24 Tiotropium 2.5 Mcg/Puff [Spiriva 2 puff INHALATION RT-DAILY 02/12/24 02/12/24 Respimat 2.5 Mcg] Previous Rx's Medication Instructions Recorded Albuterol Inhaler [Ventolin Hfa 1 - 2 puff INHALATION RT-QID PRN 04/11/23 Inhaler] #1 each Metoprolol Succinate (ER) [Toprol 50 mg PO DAILY #30 tab 11/06/23 XL] Allergies Allergy/AdvReac Type Severity Reaction Status Date / Time amoxicillin [Amoxicillin] Allergy Rash/Hives Verified 02/12/24 15:52 vancomycin Allergy "red man Verified 02/12/24 15:52 syndrome" clavulanic acid AdvReac Rash/Hives Verified 02/12/24 15:52 [From Augmentin] Review of Systems ROS Statement: Those systems with pertinent positive or pertinent negative responses have been documented in the HPI. ROS Other: All systems not noted in ROS Statement are negative. Past Medical History Past Medical History: COPD, Hyperlipidemia, Neurologic Disorder, Pneumonia Additional Past Medical History / Comment(s): DIVERTICULITIS. BACK AND NECK PAIN, migraines from neck injury, severe whiplash 05/30. Hx Bronchitis. Neuropathy, twitching left thumb. History of Any Multi-Drug Resistant Organisms: None Reported Past Surgical History: Back Surgery, Bowel Resection, Cholecystectomy, Heart Catheterization, Orthopedic Surgery, Tonsillectomy Additional Past Surgical History / Comment(s): L5 S1 laminectomy, right knee arthroscopy, plates and screws in neck, heart cath Past Anesthesia/Blood Transfusion Reactions: No Reported Reaction Past Psychological History: No Psychological Hx Reported Smoking Status: Current every day smoker Past Alcohol Use History: None Reported Past Drug Use History: None Reported - Past Family History Mother Family Medical History: Cancer Additional Family Medical History / Comment(s): Breast Cancer. Father Family Medical History: Coronary Artery Disease (CAD) Brother(s) Family Medical History: Renal Disease Additional Family Medical History / Comment(s): Kidney and heart disease. General Exam - General Exam Comments Initial Comments: GENERAL: Patient is well-developed and well-nourished. Patient is nontoxic and well- hydrated and is in distress. ENT: Neck is soft and supple. No significant lymphadenopathy is noted. Oropharynx is clear. Moist mucous membranes. Neck has full range of motion without eliciting any pain. EYES: The sclera were anicteric and conjunctiva were pink and moist. Extraocular movements were intact and pupils were equal round and reactive to light. Eyelids were unremarkable. PULMONARY: She has slight expiratory wheezing CARDIOVASCULAR: There is a regular rate and rhythm without any murmurs gallops or rubs. ABDOMEN: Soft and nontender with normal bowel sounds. SKIN: Skin is clear with no lesions or rashes and otherwise unremarkable. NEUROLOGIC: Patient is alert and oriented x3. Cranial nerves II through XII are grossly intact. Motor and sensory are also intact. Normal speech, volume and content. Symmetrical smile. MUSCULOSKELETAL: Normal extremities with adequate strength and full range of motion. No lower extremity swelling or edema. No calf tenderness. LYMPHATICS: No significant lymphadenopathy is noted PSYCHIATRIC: Normal psychiatric evaluation. Mil Limitations: no limitations Course Vital Signs 02/12/24 02/12/24 11:47 15:49 Temperature 98.4 F 98.1 F Pulse Rate 95 75 Respiratory 20 16 Rate Blood Pressure 146/89 109/79 O2 Sat by Pulse 99 96 Oximetry Medical Decision Making - Medical Decision Making EKG is interpreted by myself. EKG shows a sinus rhythm with occasional PAC at a rate of 96 bpm parables 133 QRS is 94 QT interval 351 QTc is 405. Patient's EKG shows no ST segment elevation or depression Was pt. sent in by a medical professional or institution (, DANNY, ELECTRIC METER TECHNICIAN, urgent care, hospital, or senior care...) When possible be specific @ -No Did you speak to anyone other than the patient for history (EMS, parent, family, police, friend...)? What history was obtained from this source @ -No Did you review nursing and triage notes (agree or disagree)? Why? @ -I reviewed and agree with nursing and triage notes Were old charts reviewed (outside hosp., previous admission, EMS record, old EKG, old radiological studies, urgent care reports/EKG's, senior care records)? Report findings @ -No old charts were reviewed Differential Diagnosis (chest pain, altered mental status, abdominal pain women, abdominal pain men, vaginal bleeding, weakness, fever, dyspnea, syncope, headache, dizziness, GI bleed, back pain, seizure, CVA, palpatations, mental health, musculoskeletal)? @ -Differential Chest Pain: Stable Angina, Unstable Angina, STEMI, NSTEMI Aortic Dissection, Pneumothorax, Musculoskeletal, Esophageal Spasm GERD, Cholecystitis, Pancreatitis, Zoster, this is not meant to be an all-inclusive list. EKG interpreted by me (3pts min.). @ -As above X-rays interpreted by me (1pt min.). @ -Chest x-ray shows no acute abnormality CT interpreted by me (1pt min.). @ -None done U/S interpreted by me (1pt. min.). @ -None done What testing was considered but not performed or refused? (CT, X-rays, U/S, labs)? Why? @ -None What meds were considered but not given or refused? Why? @ -None Did you discuss the management of the patient with other professionals (professionals i.e. DANNY Pizarro, ELECTRIC METER TECHNICIAN, lab, RT, psych nurse, social media community manager, medical officer psychiatry, teacher, medical officer psychiatry, special education case manager)? Give summary @ -I spoke with Dr. Mcpherson he agreed to admit the patient admit the patient wrote admitting orders Was smoking cessation discussed for >3mins.? @ -No Was critical care preformed (if so, how long)? @ -No Were there social determinants of health that impacted care today? How? (Homelessness, low income, unemployed, alcoholism, drug addiction, transportation, low edu. Level, literacy, decrease access to med. care, assisted, rehab)? @ -No Was there de-escalation of care discussed even if they declined (Discuss DNR or withdrawal of care, Hospice)? DNR status @ -No What co-morbidities impacted this encounter? (DM, HTN, Smoking, COPD, CAD, Cancer, CVA, ARF, Chemo, Hep., AIDS, mental health diagnosis, sleep apnea, morbid obesity)? @ -None Was patient admitted / discharged? Hospital course, mention meds given and route, prescriptions, significant lab abnormalities, going to OR and other pertinent info. @ -Patient received nitroglycerin as well as aspirin. Patient stated that the nitroglycerin seem to decrease his chest pain. Patient had the trapezius muscle pain on the right but that was reproducible and can be also reproduced by movement of the right arm and seem more musculoskeletal patient will be admitted to Dr. Mcpherson for chest pain with a lot of risk factors. Patient will be seen by cardiology as well Undiagnosed new problem with uncertain prognosis? @ -No Drug Therapy requiring intensive monitoring for toxicity (Heparin, Nitro, Insulin, Cardizem)? @ -No Were any procedures done? @ -No Diagnosis/symptom? @ -Chest pain Acute, or Chronic, or Acute on Chronic? @ -Acute Uncomplicated (without systemic symptoms) or Complicated (systemic symptoms)? @ -Complicated Side effects of treatment? @ -No Exacerbation, Progression, or Severe Exacerbation? @ -No Poses a threat to life or bodily function? How? (Chest pain, [place], OR, pneumonia, PE, COPD, DKA, ARF, appy, cholecystitis, CVA, Diverticulitis, Homicidal, Suicidal, threat to staff... and all critical care pts) @ -Yes patient's chest pain can lead to an OR and endorgan dysfunction Diagnosis/symptom? @ -Trapezius muscle pain Acute, or Chronic, or Acute on Chronic? @ -Acute Uncomplicated (without systemic symptoms) or Complicated (systemic symptoms)? @ -Uncomplicated Side effects of treatment? @ -None Exacerbation, Progression, or Severe Exacerbation] @ -No Poses a threat to life or bodily function? @ -No - Lab Data Result diagrams: 02/12/24 12:27 02/12/24 12:27 Lab Results 02/12/24 02/12/24 02/12/24 Range/Units 12:27 12:27 12:27 WBC 13.3 H (3.8-10.6) k/uL RBC 5.37 (4.30-5.90) m/uL Hgb 15.4 (13.0-17.5) gm/dL Hct 47.1 (39.0-53.0) % MCV 87.8 (80.0-100.0) fL MCH 28.8 (25.0-35.0) pg MCHC 32.7 (31.0-37.0) g/dL RDW 12.9 (11.5-15.5) % Plt Count 345 (150-450) k/uL MPV 7.8 Neutrophils % 66 % Lymphocytes % 22 % Monocytes % 8 % Eosinophils % 2 % Basophils % 0 % Neutrophils # 8.8 H (1.3-7.7) k/uL Lymphocytes # 3.0 (1.0-4.8) k/uL Monocytes # 1.0 (0-1.0) k/uL Eosinophils # 0.2 (0-0.7) k/uL Basophils # 0.0 (0-0.2) k/uL PT 16.0 H (10.0-12.5) sec INR 1.6 H (<1.2) APTT 27.1 (22.0-30.0) sec D-Dimer (<0.60) mg/L FEU Sodium 137 (137-145) mmol/L Potassium 3.7 (3.5-5.1) mmol/L Chloride 109 H (98-107) mmol/L Carbon Dioxide 23 (22-30) mmol/L Anion Gap 5 mmol/L BUN 10 (9-20) mg/dL Creatinine 0.63 L (0.66-1.25) mg/dL Est GFR (CKD-EPI)AfAm >90 (>60 ml/min/1.73 sqM) Est GFR (CKD-EPI)NonAf >90 (>60 ml/min/1.73 sqM) Glucose 103 H (74-99) mg/dL Calcium 9.4 (8.4-10.2) mg/dL Magnesium 1.8 (1.6-2.3) mg/dL Total Bilirubin 0.6 (0.2-1.3) mg/dL AST 28 (17-59) U/L ALT 29 (4-49) U/L Alkaline Phosphatase 106 (38-126) U/L Troponin I (0.000-0.034) ng/mL Total Protein 7.0 (6.3-8.2) g/dL Albumin 4.3 (3.5-5.0) g/dL 02/12/24 02/12/24 Range/Units 12:27 12:27 WBC (3.8-10.6) k/uL RBC (4.30-5.90) m/uL Hgb (13.0-17.5) gm/dL Hct (39.0-53.0) % MCV (80.0-100.0) fL MCH (25.0-35.0) pg MCHC (31.0-37.0) g/dL RDW (11.5-15.5) % Plt Count (150-450) k/uL MPV Neutrophils % % Lymphocytes % % Monocytes % % Eosinophils % % Basophils % % Neutrophils # (1.3-7.7) k/uL Lymphocytes # (1.0-4.8) k/uL Monocytes # (0-1.0) k/uL Eosinophils # (0-0.7) k/uL Basophils # (0-0.2) k/uL PT (10.0-12.5) sec INR (<1.2) APTT (22.0-30.0) sec D-Dimer 0.37 (<0.60) mg/L FEU Sodium (137-145) mmol/L Potassium (3.5-5.1) mmol/L Chloride (98-107) mmol/L Carbon Dioxide (22-30) mmol/L Anion Gap mmol/L BUN (9-20) mg/dL Creatinine (0.66-1.25) mg/dL Est GFR (CKD-EPI)AfAm (>60 ml/min/1.73 sqM) Est GFR (CKD-EPI)NonAf (>60 ml/min/1.73 sqM) Glucose (74-99) mg/dL Calcium (8.4-10.2) mg/dL Magnesium (1.6-2.3) mg/dL Total Bilirubin (0.2-1.3) mg/dL AST (17-59) U/L ALT (4-49) U/L Alkaline Phosphatase (38-126) U/L Troponin I <0.012 (0.000-0.034) ng/mL Total Protein (6.3-8.2) g/dL Albumin (3.5-5.0) g/dL Disposition Clinical Impression: Chest pain, Trapezius muscle strain Disposition: ADMITTED IP TO THIS HOSP Referrals: Maris Sloan DO [Primary Care Provider] - 1-2 days Time of Disposition: 16:14
--- NOTE | 2024-02-12 13:27 | XR ---
EXAMINATION TYPE: XR chest 2V DATE OF EXAM: 02/12/2024 1:12 PM CLINICAL INDICATION:Male, 58 years old with history of Chest Pain; COMPARISON: Chest radiographs from 12/03/2023 TECHNIQUE: XR chest 2V Frontal and lateral views of the chest. FINDINGS: Lungs/Pleura: Elevated left diaphragm. There is no evidence of pleural effusion, focal consolidation, or pneumothorax. Pulmonary vascularity: Unremarkable. Heart/mediastinum: Cardiomediastinal silhouette is unremarkable. Musculoskeletal: No acute osseous pathology. There is fixation hardware in the lower cervical spine. Other findings: None IMPRESSION: 1. No acute cardiopulmonary disease process. 2. COPD changes.
[2024-02-12] MEDS: ASPIRIN 81 MG PO STA (16:08)
[2024-02-12] MEDS: NITROGLYCERIN OINT 1 INCH/GM PACKET TOPICAL STA (16:11)
[2024-02-12] MEDS: KETOROLAC 15 MG/ML 1 ML VIAL IVP STA (16:11)
[2024-02-12] MEDS ORDERED: NITROGLYCERIN SL TABS 0.4 MG TAB SUBLINGUAL PRN (16:14)
[2024-02-12] MEDS: NITROGLYCERIN OINT 1 INCH/GM PACKET TOPICAL SCH (18:12)
[2024-02-12] MEDS ORDERED: ALBUTEROL NEBULIZED 2.5 MG/3 ML INHALATION PRN (20:24)
[2024-02-12] MEDS ORDERED: ACETAMINOPHEN TAB 325 MG TAB PO PRN (20:26)
[2024-02-12] MEDS ORDERED: METFORMIN PO SCH (20:30)
[2024-02-12] MEDS: HYDROcodone/APAP 5-325MG 1 EACH TAB PO PRN (20:34)
[2024-02-13 07:56] VITALS: TEMP 97.6
[2024-02-13] MEDS: IPRATROPIUM 0.5 MG/2.5 ML NEBU INHALATION SCH (08:55)
[2024-02-13] MEDS ORDERED: ASPIRIN 325 MG TAB PO SCH (09:00)
[2024-02-13] MEDS ORDERED: IPRATROPIUM-ALBUTEROL 3 ML NEB INHALATION PRN (09:15)
[2024-02-13] MEDS: ATORVASTATIN 80 MG TAB PO SCH (09:54)
[2024-02-13] MEDS: ASPIRIN 81 MG PO SCH (09:54)
--- NOTE | 2024-02-13 10:02 | CA ---
Transthoracic Echo Report Name: Abenr Dempsey Age: 58 Gender: M : 1965 Exam Date: 02/13/2024 08:32 Exam Location: [facility] Ht (in): 73 Wt (lb): 220 Ordering Physician: Jyoti Barone Attending/Referring Phys: [id number], Lizabeth Customer Acquisition Specialist Mitra Pizano, KADIE Procedure CPT: Indications: CP, LV function Cardiac Hx: Technical Quality: Technically difficult study Contrast 1: Total Dose (mL): Contrast 2: Total Dose (mL): MEASUREMENTS (Male / Female) Normal Values 2D ECHO LV Diastolic Diameter PLAX 4.3 cm 4.2 - 5.9 / 3.9 - 5.3 cm LV Systolic Diameter PLAX 2.9 cm IVS Diastolic Thickness 1.3 cm 0.6 - 1.0 / 0.6 - 0.9 cm LVPW Diastolic Thickness 1.3 cm 0.6 - 1.0 / 0.6 - 0.9 cm LV Relative Wall Thickness 0.6 RV Internal Dim ED PLAX 3.3 cm LA Systolic Diameter LX 3.5 cm 3.0 - 4.0 / 2.7 - 3.8 cm LA Volume 56.2 cm??? 18 - 58 / 22 - 52 cm??? LA Volume Index 24.6 cm???/m??? 16 - 28 cm???/m??? M-MODE Aortic Root Diameter MM 3.5 cm AV Cusp Separation MM 3.1 cm DOPPLER AV Peak Velocity 124.9 cm/s AV Peak Gradient 6.2 mmHg MV Area PHT 3.8 cm??? Mitral E Point Velocity 75.0 cm/s Mitral A Point Velocity 83.0 cm/s Mitral E to A Ratio 0.9 MV Deceleration Time 198.3 ms FINDINGS Left Ventricle Left ventricular ejection fraction is estimated at 55-60 %. Left ventricular cavity size normal. Mild concentric left ventricular hypertrophy. No obvious regional wall motion abnormalities. Right Ventricle Mild right ventricular dilatation. Unable to estimate the right ventricular systolic pressure. Right Atrium Right atrium not well visualized. Left Atrium Normal left atrial size. Mitral Valve Structurally normal mitral valve. No mitral stenosis, regurgitation or prolapse. Aortic Valve Trileaflet aortic valve. No aortic valve stenosis or regurgitation. Tricuspid Valve Structurally normal tricuspid valve. No tricuspid stenosis, regurgitation or prolapse. Pulmonic Valve Structurally normal pulmonic valve. No pulmonic regurgitation. Pericardium No pericardial or pleural effusion. Aorta Normal size aortic root and proximal ascending aorta. CONCLUSIONS Normal LV function Previewed by: Dr. Rasta Tabor MD (Electronically Signed) Final Date: 13 February 2024 10:01
[2024-02-13 10:29] LABS: Chol/HDL Ratio 5.78 Ratio; LDL Cholesterol,Calculated 73.3 mg/dL (0.0-131.0)
--- NOTE | 2024-02-13 10:36 | P.CRDCN ---
History of Present Illness History of present illness: HISTORY OF PRESENT ILLNESS: This is a 58-year-old male with a past medical history significant for COPD, nicotine dependence, hyperlipidemia, and mild coronary artery disease. Patient follows in the office with Dr. Rashid. We have been asked to see the patient in consultation for chest pain. Patient examined at the bedside. Patient states he has been having some pain on the right side of his chest. He states that he went to see his PCP yesterday who recommended that he come to the hospital. The patient states the pain feels like a tightness and is worse with movement. He currently denies any shortness of breath. Vital signs are stable. DIAGNOSTICS: - EKG reveals sinus mechanism with no signs of acute ischemia. - Chest xray negative for acute process. COPD changes.. - Laboratory data: WBC 13.3. Hemoglobin 15.4. Platelet count 346. D-dimer 0.37. Sodium 137. Potassium 3.7. BUN 10. Creatinine 0.63. Magnesium 1.8. Troponin negative x 3. - Current home cardiac medications include Lipitor 80 mg daily and metoprolol succinate 50 mg daily. - Echocardiogram obtained this admission reveals ejection fraction 55 to 60% - Cardiac catheterization history: April 09, 2023 revealing 10 to 20% LAD stenosis, 20% circumflex, and 20 to 30% RCA stenosis. REVIEW OF SYSTEMS: At the time of my exam: CONSTITUTIONAL: Denies fever or chills. HEENT: Denies blurred vision, vision changes, or eye pain. Denies hemoptysis CARDIOVASCULAR: Denies chest pain. Denies orthopnea. Denies PND. Denies palpitations RESPIRATORY: Denies shortness of breath. GASTROINTESTINAL: Denies abdominal pain. Denies nausea or vomiting. HEMATOLOGIC: Denies bleeding disorders. GENITOURINARY: Denies any blood in urine. SKIN: Denies pruitis. Denies rash. PHYSICAL EXAM: VITAL SIGNS: Reviewed. GENERAL: Well-developed in no acute distress. HEENT: Head is normocephalic. Pupils are equal, round. Sclerae anicteric. Mucous membranes of the mouth are moist. Neck supple. No JVD or thyromegaly LUNGS: Respirations even and unlabored. Lungs essentially clear to auscultation bilaterally. HEART: Regular rate and rhythm. S1 and S2 heard. ABDOMEN: Soft. Nondistended. Nontender. EXTREMITIES: Normal range of motion. No clubbing or cyanosis. Peripheral pulses intact. No lower extremity edema NEUROLOGIC: Awake and alert. Oriented x 3. ASSESSMENT: Chest pain Mild CAD per cardiac catheterization 04/09/2023 revealing 10 to 20% LAD stenosis, 20% circumflex, and 20 to 30% RCA stenosis Per lipidemia Borderline diabetes, recently started on metformin COPD Nicotine dependence PLAN: ED echo obtained and reviewed An acute coronary but has been ruled out Resume home cardiac medications Patient to undergo dobutamine stress test today If negative, he may be discharged home today from a cardiac standpoint Nurse practitioner note has been reviewed by physician. Signing provider agrees with the documented findings, assessment, and plan of care documented by FISHER CRAB as a scribe. Past Medical History Past Medical History: COPD, Hyperlipidemia, Neurologic Disorder, Pneumonia Additional Past Medical History / Comment(s): DIVERTICULITIS. BACK AND NECK PAIN, migraines from neck injury, severe whiplash 05/30. Hx Bronchitis. Neuropathy, twitching left thumb. History of Any Multi-Drug Resistant Organisms: None Reported Past Surgical History: Back Surgery, Bowel Resection, Cholecystectomy, Heart Catheterization, Orthopedic Surgery, Tonsillectomy Additional Past Surgical History / Comment(s): L5 S1 laminectomy, right knee arthroscopy, plates and screws in neck, heart cath Past Anesthesia/Blood Transfusion Reactions: No Reported Reaction Past Psychological History: No Psychological Hx Reported Smoking Status: Current every day smoker Past Alcohol Use History: None Reported Additional Past Alcohol Use History / Comment(s): Smokes 1 PPD since age 20. Past Drug Use History: None Reported - Past Family History Mother Family Medical History: Cancer Additional Family Medical History / Comment(s): Breast Cancer. Father Family Medical History: Coronary Artery Disease (CAD) Brother(s) Family Medical History: Renal Disease Additional Family Medical History / Comment(s): Kidney and heart disease. Medications and Allergies Home Medications Medication Instructions Recorded Confirmed Type Albuterol Inhaler [Ventolin Hfa 1 - 2 puff INHALATION RT-QID PRN 04/11/23 02/12/24 Rx Inhaler] #1 each Albuterol Nebulized [Ventolin 2.5 mg INHALATION RT-Q4H PRN 11/05/23 02/12/24 History Nebulized] Atorvastatin [Lipitor] 80 mg PO DAILY 11/05/23 02/12/24 History Metoprolol Succinate (ER) [Toprol 50 mg PO DAILY #30 tab 11/06/23 02/12/24 Rx XL] Fluticasone Propion/Salmeterol 1 puff INHALATION RT-BID 02/12/24 02/12/24 History [Advair 500-50 Diskus] Metformin (Unknown Strength) 1 dose PO DIRECTED 02/12/24 02/12/24 History Tiotropium 2.5 Mcg/Puff [Spiriva 2 puff INHALATION RT-DAILY 02/12/24 02/12/24 History Respimat 2.5 Mcg] Allergies Allergy/AdvReac Type Severity Reaction Status Date / Time amoxicillin [Amoxicillin] Allergy Rash/Hives Verified 02/12/24 15:52 vancomycin Allergy "red man Verified 02/12/24 15:52 syndrome" clavulanic acid AdvReac Rash/Hives Verified 02/12/24 15:52 [From Augmentin] Physical Exam Vitals: Vital Signs Temp Pulse Pulse Resp BP BP Pulse Ox 02/13/24 02:16 98.2 F 70 16 102/65 95 02/12/24 21:15 97.5 F L 66 17 102/64 95 02/12/24 20:00 97.6 F 65 18 101/64 94 L 02/12/24 18:13 97.8 F 75 16 97/65 95 02/12/24 17:30 68 16 96/63 96 02/12/24 15:49 98.1 F 75 16 109/79 96 02/12/24 11:47 98.4 F 95 20 146/89 99 Intake and Output 02/12/24 02/13/24 02/13/24 22:59 06:59 14:59 Other: Voiding Method Toilet Toilet # Voids 1 2 Weight 99.79 kg Results 02/12/24 12:27 02/12/24 12:27 Cardiac Enzymes 02/12/24 02/12/24 02/12/24 Range/Units 12:27 12:27 16:47 AST 28 (17-59) U/L Troponin I <0.012 <0.012 (0.000-0.034) ng/mL 02/12/24 Range/Units 20:06 AST (17-59) U/L Troponin I <0.012 (0.000-0.034) ng/mL Coagulation 02/12/24 Range/Units 12:27 PT 16.0 H (10.0-12.5) sec APTT 27.1 (22.0-30.0) sec CBC 02/12/24 Range/Units 12:27 WBC 13.3 H (3.8-10.6) k/uL RBC 5.37 (4.30-5.90) m/uL Hgb 15.4 (13.0-17.5) gm/dL Hct 47.1 (39.0-53.0) % Plt Count 345 (150-450) k/uL Comprehensive Metabolic Panel 02/12/24 Range/Units 12:27 Sodium 137 (137-145) mmol/L Potassium 3.7 (3.5-5.1) mmol/L Chloride 109 H (98-107) mmol/L Carbon Dioxide 23 (22-30) mmol/L BUN 10 (9-20) mg/dL Creatinine 0.63 L (0.66-1.25) mg/dL Glucose 103 H (74-99) mg/dL Calcium 9.4 (8.4-10.2) mg/dL AST 28 (17-59) U/L ALT 29 (4-49) U/L Alkaline Phosphatase 106 (38-126) U/L Total Protein 7.0 (6.3-8.2) g/dL Albumin 4.3 (3.5-5.0) g/dL Current Medications Generic Name Dose Route Start Last Admin Trade Name Freq PRN Reason Stop Dose Admin Acetaminophen 650 mg 02/12/24 20:26 Acetaminophen Tab 325 Mg Tab PO Q4HR PRN Fever and/ or Pain Hydrocodone Bitart/Acetaminophen 1 each 02/12/24 20:26 02/12/24 20:34 Hydrocodone/Apap 5-325mg 1 Each Tab PO 1 each BID PRN Administration Pain Albuterol Sulfate 2.5 mg 02/12/24 20:24 Albuterol Nebulized 2.5 Mg/3 Ml INHALATION RT-QID PRN Shortness Of Breath Aspirin 325 mg 02/13/24 09:00 Aspirin 325 Mg Tab PO DAILY [facility] Atorvastatin Calcium 80 mg 02/13/24 09:00 Atorvastatin 80 Mg Tab PO DAILY [facility] Budesonide/Formoterol Fumarate 2 puff 02/13/24 08:00 Symbicort 160-4.5 Mcg Inhaler INHALATION RT-BID JONATHAN Ipratropium [place] 0.5 mg 02/13/24 08:00 Ipratropium 0.5 Mg/2.5 Ml Nebu INHALATION RT-QID JONATHAN Metoprolol Succinate 50 mg 02/13/24 09:00 Metoprolol Succinate (Er) 50 Mg Tab.Er.24h PO DAILY JONATHAN Nitroglycerin 0.4 mg 02/12/24 16:14 Nitroglycerin Sl Tabs 0.4 Mg Tab SUBLINGUAL Q5M PRN Chest Pain Nitroglycerin 1 inch 02/12/24 18:00 02/13/24 05:52 Nitroglycerin Oint 1 Inch/Gm Packet TOPICAL Not Given Q6HR JONATHAN Intake and Output 02/12/24 02/13/24 02/13/24 22:59 06:59 14:59 Other: Voiding Method Toilet Toilet # Voids 1 2 Weight 99.79 kg 02/12/24 12:27 02/12/24 12:27
[2024-02-13] MEDS ORDERED: DEXTROSE 50% SYRINGE 50 ML IVP PRN ×2 (10:54)
[2024-02-13] MEDS ORDERED: DOBUTamine DRIP for NUC MED 500 MG in DEXTROSE/WATER 1 250ML.BAG IV PRN (11:00)
[2024-02-13] MEDS: SYMBICORT 160-4.5 MCG INHALER INHALATION SCH (11:23)
[2024-02-13] MEDS: IPRATROPIUM-ALBUTEROL 3 ML NEB INHALATION SCH (11:24)
[2024-02-13 12:15] LABS: Glucose,Whole Blood 129 mg/dL (70-110)
[2024-02-13] MEDS: INSULIN ASPART (NovoLOG) 100 UNIT/ML VIAL SQ SCH (12:34)
[2024-02-13] MEDS: METOPROLOL SUCCINATE (ER) 50 MG TAB.ER.24H PO SCH (12:48)
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
[2024-02-13 17:17] LABS: Glucose,Whole Blood 110 mg/dL (70-110)
[2024-02-13 19:42] VITALS: BP 112/77; RESP 18
[2024-02-13 19:43] VITALS: PULSE 73
== END 2024-02-13 20:08 | disposition home or self-care (01) ==
LOC: EC 11:43 → 6NMEDSUR 16:46
PROVIDERS: ADMIT Family Medicine; ATTEND Family Medicine
DX: R07.89 Other chest pain (principal); E11.9 Type 2 diabetes mellitus without complications; E78.00 Pure hypercholesterolemia, unspecified; J44.9 Chronic obstructive pulmonary disease, unspecified; G62.9 Polyneuropathy, unspecified; I25.10 Atherosclerotic heart disease of native coronary artery without angina pectoris; F17.200 Nicotine dependence, unspecified, uncomplicated; E66.9 Obesity, unspecified; Z68.29 Body mass index [BMI] 29.0-29.9, adult; Z79.899 Other long term (current) drug therapy; Z79.51 Long term (current) use of inhaled steroids; Z79.84 Long term (current) use of oral hypoglycemic drugs; Z88.0 Allergy status to penicillin; Z88.1 Allergy status to other antibiotic agents; Z82.49 Family history of ischemic heart disease and other diseases of the circulatory system
CPT/HCPCS: 96374; 99285; 36415; 94640 ×2; 94760; 93005; 93306; 93351; 85379; 80061; 80053; 83735; 84484; 85025; 85610; 85730; 71046; G0378 ×2; Q9957; J1885

== ENCOUNTER 2024-02-19 08:13 | Day surgery (SDC) | payer BC, OTHER ==
[2024-02-15 12:57] VITALS: BMI 29.0
[2024-02-19 08:32] VITALS: TEMP 97.6
[2024-02-19] MEDS: LACTATED RINGERS 1,000 ML IV SCH (08:38)
[2024-02-19] MEDS: IV FLUID CONTINUATION 1,000 ML IV ONE (08:38)
[2024-02-19 08:42] LABS: Glucose,Whole Blood 115 mg/dL (70-110)
[2024-02-19] MEDS ORDERED: PROPOFOL 10 MG/ML 20 ML VIAL IV ONE (08:55)
[2024-02-19] MEDS ORDERED: LIDOCAINE 1% INJ 10MG/ML (20 ML MDV) ONE (08:55)
--- NOTE | 2024-02-19 09:07 | P.PCN ---
Date of Procedure: 02/19/24 Procedure(s) Performed: BRIEF HISTORY: Patient is a 58-year-old pleasant white male scheduled for an elective colonoscopy as a part of screening for colon cancer. PROCEDURE PERFORMED: Colonoscopy. PREOPERATIVE DIAGNOSIS: History of colon polyps. IV sedation per Anesthesia. PROCEDURE: After informed consent was obtained, the patient, was brought into the endoscopy unit. IV sedation was administered by Anesthesia under continuous monitoring. Digital rectal examination was normal. Initially the Olympus CF-160 flexible video colonoscope was then inserted in the rectum, gradually advanced into the cecum without any difficulty. Careful examination was performed as the scope was gradually being withdrawn. Ileocecal valve and the appendiceal orifice were visualized and appeared normal. Prep was excellent. Mucosa of the cecum, ascending colon, transverse colon, descending colon, sigmoid colon, and rectum appeared normal. Moderate sigmoid diverticulosis retroflexion was performed in the rectum and grade 2 internal hemorrhoids s were seen. The patient tolerated the procedure well. IMPRESSION: Normal-appearing colon from rectum to cecum no evidence of colorectal neoplasia. Moderate sigmoid diverticulosis Grade 2 internal hemorrhoid RECOMMENDATIONS: Findings of this examination were discussed with the patient as well as his family. He was advised to be on high-fiber diet and take fiber supplements on a regular basis. Recommended repeat screening colonoscopy in 10 years.
[2024-02-19 09:14] VITALS: RESP 16
[2024-02-19 09:28] VITALS: BP 124/85; PULSE 71
== END 2024-02-19 09:41 | disposition home or self-care (01) ==
LOC: ORWHC2ENDO 08:13
PROVIDERS: ATTEND Internal Medicine Gastroenterology
DX: Z12.11 Encounter for screening for malignant neoplasm of colon (principal); K57.30 Diverticulosis of large intestine without perforation or abscess without bleeding; K64.1 Second degree hemorrhoids; E78.5 Hyperlipidemia, unspecified; J44.9 Chronic obstructive pulmonary disease, unspecified; E11.9 Type 2 diabetes mellitus without complications; G43.909 Migraine, unspecified, not intractable, without status migrainosus; F17.210 Nicotine dependence, cigarettes, uncomplicated; Z79.84 Long term (current) use of oral hypoglycemic drugs; Z79.899 Other long term (current) drug therapy; Z90.49 Acquired absence of other specified parts of digestive tract; Z86.010 Personal history of colon polyps; Z79.82 Long term (current) use of aspirin; Z88.1 Allergy status to other antibiotic agents; Z88.0 Allergy status to penicillin; Z88.8 Allergy status to other drugs, medicaments and biological substances
CPT/HCPCS: 45378; J2001; J2704

== ENCOUNTER 2024-04-06 20:59 | Emergency (ER) | payer BC, OTHER ==
[2024-04-06 21:26] VITALS: TEMP 98.8
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
[2024-04-06] MEDS: SODIUM CHLORIDE 0.9% 1,000 ML IV STA (21:35)
[2024-04-06] MEDS: METOPROLOL TARTRATE 5 MG/5 ML VIAL IVP STA (21:36)
[2024-04-06] MEDS: MORPHINE SULFATE 4 MG/ML SYRINGE IV STA (21:39)
[2024-04-06 21:45] LABS: Basophils % (A) 0 %; Eosinophils # (A) 0.3 k/uL (0-0.7); Eosinophils % (A) 2 %; HCT 43.7 % (39.0-53.0); HGB 14.2 gm/dL (13.0-17.5); Lymphocytes # (A) 2.8 k/uL (1.0-4.8); Lymphocytes % (A) 22 %; MCH 29.1 pg (25.0-35.0); MCHC 32.6 g/dL (31.0-37.0); MCV 89.2 fL (80.0-100.0); Mean Platelet Volume 7.8; Monocytes % (A) 8 %; Neutrophils # (A) 7.9 k/uL (1.3-7.7); Neutrophils % (A) 64 %; Platelet Count 298 k/uL (150-450); RDW 13.2 % (11.5-15.5); WBC 12.3 k/uL (3.8-10.6)
--- NOTE | 2024-04-06 22:13 | XR ---
EXAMINATION TYPE: XR chest 2V DATE OF EXAM: 04/06/2024 9:54 PM CLINICAL INDICATION:Male, 58 years old with history of dysrhythmia; LOCATED [facility]IN [facility] COMPARISON: Chest radiographs from 02/12/2024. TECHNIQUE: XR chest 2V Frontal and lateral views of the chest. FINDINGS: Lungs/Pleura: Bibasilar infiltrates. No pleural effusion or pneumothorax. Pulmonary vascularity: Unremarkable. Heart/mediastinum: Cardiomediastinal silhouette is unremarkable. Musculoskeletal: No acute osseous pathology. Other findings: None Lines/Tubes: IMPRESSION: Bibasilar infiltrates.
[2024-04-06 22:22] LABS: ALT 36 U/L (4-49); AST 44 U/L (17-59); African American GFR (CKD) >90 (>60 ml/min/1.73 sqM); Albumin 3.5 g/dL (3.5-5.0); Alkaline Phosphatase 90 U/L (38-126); Anion Gap 5 mmol/L; Blood Urea Nitrogen 13 mg/dL (9-20); Calcium 9.4 mg/dL (8.4-10.2); Carbon Dioxide 24 mmol/L (22-30); Chloride 108 mmol/L (98-107); Glucose 154 mg/dL (74-99); Magnesium 1.5 mg/dL (1.6-2.3); Non-African American GFR(CKD) >90 (>60 ml/min/1.73 sqM); Potassium 3.9 mmol/L (3.5-5.1); Sodium 137 mmol/L (137-145); Total Bilirubin 0.4 mg/dL (0.2-1.3)
[2024-04-06 22:31] LABS: NT-Pro-B-Type Natriuretic Pept 2170 pg/mL
[2024-04-06 22:35] LABS: INR 1.1 (<1.2)
[2024-04-06 22:36] LABS: Partial Thromboplastin Time 23.7 sec (22.0-30.0); Prothrombin Time 11.6 sec (10.0-12.5)
[2024-04-06 22:47] LABS: Appearance,Urine Clear (Clear); Bilirubin,Urine Negative (Negative); Blood,Urine Negative (Negative); Color,Urine Yellow; Glucose,Urine (UA) Negative (Negative); Ketones,Urine Negative (Negative); Leukocyte Esterase,Urine Negative (Negative); Nitrite,Urine Negative (Negative); PH, Urine 6.5 (5.0-8.0); Protein,Urine Trace (Negative); Specific Gravity,Urine 1.033 (1.001-1.035); Urobilinogen,Urine <2.0 mg/dL (<2.0)
[2024-04-06] MEDS: MAGNESIUM SULFATE-D5W PMX 1 GM in DEXTROSE/WATER 1 100ML.BAG IVPB SCH (23:02)
[2024-04-07 00:39] VITALS: RESP 20
--- NOTE | 2024-04-07 01:16 | CT ---
EXAM: CT Angiography Chest With Intravenous Contrast CLINICAL HISTORY: ITS.REASON CT Reason: Possible PE TECHNIQUE: Axial computed tomographic angiography images of the chest with intravenous contrast. CTDI is 25.9 mGy and DLP is 563.4 mGy-cm. This CT exam was performed using one or more of the following dose reduction techniques: automated exposure control, adjustment of the mA and/or kV according to patient size, and/or use of iterative reconstruction technique. MIP reconstructed images were created and reviewed. COMPARISON: No relevant prior studies available. FINDINGS: Pulmonary arteries: Unremarkable. No acute pulmonary embolism. Aorta: No acute findings. No thoracic aortic aneurysm. Lungs: Right base consolidation, concerning for pneumonia. Correlate for aspiration. Mild-moderate centrilobular emphysema. Pleural space: Unremarkable. No significant effusion. No pneumothorax. Heart: Unremarkable. No cardiomegaly. No significant pericardial effusion. No evidence of RV dysfunction. Bones/joints: See below. Soft tissues: Subcutaneous air in the left chest wall. Correlate for recent chest tube removal. No rib fractures. Lymph nodes: Unremarkable. No enlarged lymph nodes. Kidneys and ureters: Right upper pole renal cyst measures 7.4 cm. IMPRESSION: 1. No acute pulmonary embolism. 2. Right base consolidation, concerning for pneumonia. Correlate for aspiration. 3. Mild-moderate centrilobular emphysema. 4. Subcutaneous air in the left chest wall. Correlate for recent chest tube removal. No rib fractures.
[2024-04-07] MEDS: AZITHROMYCIN 500 MG TAB PO STA (02:04)
[2024-04-07] MEDS: METOPROLOL TARTRATE 5 MG/5 ML VIAL IVP STA (02:09)
[2024-04-07 02:33] VITALS: BP 108/82; PULSE 80
== END 2024-04-07 02:40 | disposition home or self-care (01) ==
LOC: EC 20:59
DX: J18.9 Pneumonia, unspecified organism (principal); J44.0 Chronic obstructive pulmonary disease with (acute) lower respiratory infection; E11.8 Type 2 diabetes mellitus with unspecified complications; Z87.891 Personal history of nicotine dependence; Z88.0 Allergy status to penicillin; Z88.1 Allergy status to other antibiotic agents; Z90.49 Acquired absence of other specified parts of digestive tract; Z79.899 Other long term (current) drug therapy
CPT/HCPCS: 36415; 93005; 83880; 80053; 83735; 84443; 84484; 85025; 85610; 85730; 81003; 71046; 71275; 99285; 96365; 96375 ×2; 96361; 96366; 96367; J2270; J0696; J3475 ×2; Q9967

== ENCOUNTER 2024-11-14 10:23 | Observation (INO) | payer OTHER, BC ==
--- NOTE | 2024-11-14 10:37 | ED ---
General Adult HPI - General Chief complaint: Chest Pain Stated complaint: Chest Pain Time Seen by Provider: 11/14/24 10:27 Source: patient, EMS, RN notes reviewed, old records reviewed Limitations: no limitations - History of Present Illness Initial comments: 59-year-old male presents for evaluation of chest tightness. Symptoms began yesterday evening. Patient was seen at the [facility] today and was sent to the emergency department for evaluation of symptoms. Patient reports a prior history of CAD without prior stenting. He states he had a heart cath approximately 1 year ago. He denies associated vomiting or diaphoresis. - Related Data Home Medications Medication Instructions Recorded Confirmed Fluticasone Propion/Salmeterol 1 puff INHALATION RT-BID 02/12/24 11/14/24 [Advair 500-50 Diskus] Tiotropium 2.5 Mcg/Puff [Spiriva 2 puff INHALATION RT-DAILY 02/12/24 11/14/24 Respimat 2.5 Mcg] Albuterol Inhaler [Ventolin Hfa 2 puff INHALATION RT-Q4H PRN 02/15/24 11/14/24 Inhaler] Metoprolol Succinate (ER) [Toprol 50 mg PO DAILY 02/15/24 11/14/24 XL] metFORMIN HCL 500 mg PO BID 02/15/24 11/14/24 Previous Rx's Medication Instructions Recorded Aspirin 81 mg PO DAILY tab 02/13/24 Allergies Allergy/AdvReac Type Severity Reaction Status Date / Time amoxicillin [Amoxicillin] Allergy Rash/Hives Verified 11/14/24 11:19 vancomycin Allergy "red man Verified 11/14/24 11:19 syndrome" clavulanic acid AdvReac Rash/Hives Verified 11/14/24 11:19 [From Augmentin] Review of Systems ROS Statement: Those systems with pertinent positive or pertinent negative responses have been documented in the HPI. ROS Other: All systems not noted in ROS Statement are negative. Past Medical History Past Medical History: COPD, Hyperlipidemia, Neurologic Disorder, Pneumonia Additional Past Medical History / Comment(s): DIVERTICULITIS. BACK AND NECK PAIN, migraines from neck injury, severe whiplash 05/30. Hx Bronchitis. Neuropathy, twitching left thumb. History of Any Multi-Drug Resistant Organisms: None Reported Past Surgical History: Back Surgery, Bowel Resection, Cholecystectomy, Heart Catheterization, Orthopedic Surgery, Tonsillectomy Additional Past Surgical History / Comment(s): L5 S1 laminectomy, right knee arthroscopy, plates and screws in neck, heart cath Past Anesthesia/Blood Transfusion Reactions: No Reported Reaction Past Psychological History: No Psychological Hx Reported Smoking Status: Current every day smoker Past Alcohol Use History: None Reported Past Drug Use History: None Reported - Past Family History Mother Family Medical History: Cancer Additional Family Medical History / Comment(s): Breast Cancer. Father Family Medical History: Coronary Artery Disease (CAD) Brother(s) Family Medical History: Renal Disease Additional Family Medical History / Comment(s): Kidney and heart disease. Kidney cancer. Sister(s) Additional Family Medical History / Comment(s): Blood clots throughout body and brain lesions. General Exam Limitations: no limitations General appearance: alert, in no apparent distress Head exam: Present: atraumatic, normocephalic Eye exam: Present: normal appearance, PERRL ENT exam: Present: normal exam Neck exam: Present: normal inspection. Absent: tenderness, meningismus Respiratory exam: Present: normal lung sounds bilaterally. Absent: respiratory distress, wheezes Cardiovascular Exam: Present: regular rate, normal rhythm GI/Abdominal exam: Present: soft. Absent: distended, tenderness, guarding Extremities exam: Present: normal inspection, normal capillary refill Neurological exam: Present: alert, oriented X3, CN II-XII intact. Absent: motor sensory deficit Psychiatric exam: Present: normal affect, normal mood Skin exam: Present: warm, dry, intact Course Vital Signs 11/14/24 11/14/24 11/14/24 10:25 10:43 12:02 Temperature 97.9 F Pulse Rate 84 86 90 Respiratory 20 18 18 Rate Blood Pressure 151/95 137/94 114/86 O2 Sat by Pulse 96 97 95 Oximetry Medical Decision Making - Medical Decision Making Was pt. sent in by a medical professional or institution (, PA, [employer]PA[employer]ER, urgent c are, hospital, or fpc...) When possible be specific @ -No Did you speak to anyone other than the patient for history (EMS, parent, family, police, friend...)? What history was obtained from this source @ -No Did you review nursing and triage notes (agree or disagree)? Why? @ -I reviewed and agree with nursing and triage notes Were old charts reviewed (outside hosp., previous admission, EMS record, old EKG, old radiological studies, urgent care reports/EKG's, fpc records)? Report findings @ -No old charts were reviewed Differential Chest Pain: Stable Angina, Unstable Angina, STEMI, NSTEMI Aortic Dissection, Pneumothorax, Musculoskeletal, Esophageal Spasm GERD, Cholecystitis, Pancreatitis, Zoster, this is not meant to be an all-inclusive list. EKG interpreted by me (3pts min.). @ -Sinus rhythm rate of 84, UT interval 120, QRS duration 109, QTc [address] segment elevation. X-rays interpreted by me (1pt min.). @ -Chest x-ray negative for pneumothorax, no consolidated pneumonia CT interpreted by me (1pt min.). @ -None done U/S interpreted by me (1pt. min.). @ -None done What testing was considered but not performed or refused? (CT, X-rays, U/S, labs)? Why? @ -None What meds were considered but not given or refused? Why? @ -None Did you discuss the management of the patient with other professionals (professionals i.e. , PA, [employer] REPAIRER, lab, RT, psych nurse, social work coordinator, tip bander, teacher, medical information officer, patient case manager)? Give summary @ -No Was smoking cessation discussed for >3mins.? @ -No Was critical care preformed (if so, how long)? @ -No Were there social determinants of health that impacted care today? How? (Homelessness, low income, unemployed, alcoholism, drug addiction, transportation, low edu. Level, literacy, decrease access to med. care, residential, rehab)? @ -No Was there de-escalation of care discussed even if they declined (Discuss DNR or withdrawal of care, Hospice)? DNR status @ -No What co-morbidities impacted this encounter? (DM, HTN, Smoking, COPD, CAD, Cancer, CVA, ARF, Chemo, Hep., AIDS, mental health diagnosis, sleep apnea, morbid obesity)? @COPD Was patient admitted / discharged? Hospital course, mention meds given and route, prescriptions, significant lab abnormalities, going to OR and other pertinent info. @59-year-old male with central chest pain and tightness worse with exertion. Patient denies cough or fever. EKG is sinus without ST segment changes. Chest x-ray negative for acute changes, normal CBC, normal CMP, negative initial troponin. Patient will be kept in observation for serial cardiac enzymes, t elemetry, cardiology consultation. Undiagnosed new problem with uncertain prognosis? @ -No Drug Therapy requiring intensive monitoring for toxicity (Heparin, Nitro, Insulin, Cardizem)? @ -No Were any procedures done? @ -No Diagnosis/symptom? @ -Chest pain Acute, or Chronic, or Acute on Chronic? @ -Acute Uncomplicated (without systemic symptoms) or Complicated (systemic symptoms)? @ -[Complicated Side effects of treatment? @ -No Exacerbation, Progression, or Severe Exacerbation? @ -No Poses a threat to life or bodily function? How? (Chest pain, USA, SD, pneumonia, PE, COPD, DKA, ARF, appy, cholecystitis, CVA, Diverticulitis, Homicidal, Suicidal, threat to staff... and all critical care pts) @ -Yes, ACS, SD - Lab Data Result diagrams: 11/14/24 10:42 11/14/24 10:42 Lab Results 11/14/24 11/14/24 11/14/24 Range/Units 10:42 10:42 10:42 WBC 10.4 (3.8-10.6) k/uL RBC 5.49 (4.30-5.90) m/uL Hgb 15.6 (13.0-17.5) gm/dL Hct 48.1 (39.0-53.0) % MCV 87.6 (80.0-100.0) fL MCH 28.4 (25.0-35.0) pg MCHC 32.4 (31.0-37.0) g/dL RDW 13.5 (11.5-15.5) % Plt Count 303 (150-450) k/uL MPV 8.0 Neutrophils % 59 % Lymphocytes % 27 % Monocytes % 10 % Eosinophils % 1 % Basophils % 0 % Neutrophils # 6.1 (1.3-7.7) k/uL Lymphocytes # 2.8 (1.0-4.8) k/uL Monocytes # 1.0 (0-1.0) k/uL Eosinophils # 0.1 (0-0.7) k/uL Basophils # 0.0 (0-0.2) k/uL PT 12.1 (10.0-12.5) sec INR 1.1 (<1.2) APTT 21.0 L (22.0-30.0) sec Sodium 138 (137-145) mmol/L Potassium 4.4 (3.5-5.1) mmol/L Chloride 105 (98-107) mmol/L Carbon Dioxide 25 (22-30) mmol/L Anion Gap 8 mmol/L BUN 14 (9-20) mg/dL Creatinine 0.68 (0.66-1.25) mg/dL Est GFR (CKD-EPI)AfAm >90 (>60 ml/min/1.73 sqM) Est GFR (CKD-EPI)NonAf >90 (>60 ml/min/1.73 sqM) Glucose 99 (74-99) mg/dL Calcium 9.9 (8.4-10.2) mg/dL Magnesium 1.9 (1.6-2.3) mg/dL Total Bilirubin 0.5 (0.2-1.3) mg/dL AST 30 (17-59) U/L ALT 40 (4-49) U/L Alkaline Phosphatase 114 (38-126) U/L Troponin I (0.000-0.034) ng/mL Total Protein 7.4 (6.3-8.2) g/dL Albumin 4.5 (3.5-5.0) g/dL 11/14/24 Range/Units 10:42 WBC (3.8-10.6) k/uL RBC (4.30-5.90) m/uL Hgb (13.0-17.5) gm/dL Hct (39.0-53.0) % MCV (80.0-100.0) fL MCH (25.0-35.0) pg MCHC (31.0-37.0) g/dL RDW (11.5-15.5) % Plt Count (150-450) k/uL MPV Neutrophils % % Lymphocytes % % Monocytes % % Eosinophils % % Basophils % % Neutrophils # (1.3-7.7) k/uL Lymphocytes # (1.0-4.8) k/uL Monocytes # (0-1.0) k/uL Eosinophils # (0-0.7) k/uL Basophils # (0-0.2) k/uL PT (10.0-12.5) sec INR (<1.2) APTT (22.0-30.0) sec Sodium (137-145) mmol/L Potassium (3.5-5.1) mmol/L Chloride (98-107) mmol/L Carbon Dioxide (22-30) mmol/L Anion Gap mmol/L BUN (9-20) mg/dL Creatinine (0.66-1.25) mg/dL Est GFR (CKD-EPI)AfAm (>60 ml/min/1.73 sqM) Est GFR (CKD-EPI)NonAf (>60 ml/min/1.73 sqM) Glucose (74-99) mg/dL Calcium (8.4-10.2) mg/dL Magnesium (1.6-2.3) mg/dL Total Bilirubin (0.2-1.3) mg/dL AST (17-59) U/L ALT (4-49) U/L Alkaline Phosphatase (38-126) U/L Troponin I <0.012 (0.000-0.034) ng/mL Total Protein (6.3-8.2) g/dL Albumin (3.5-5.0) g/dL Disposition Clinical Impression: Chest pain Disposition: ADMITTED IP TO THIS HOSP Condition: Stable Is patient prescribed a controlled substance at d/c from ED?: No Referrals: Maris Sloan DO [Primary Care Provider] - 1-2 days Time of Disposition: 12:47
--- NOTE | 2024-11-14 10:56 | XR ---
EXAMINATION TYPE: XR chest 2V DATE OF EXAM: 11/14/2024 10:51 AM COMPARISON: Chest x-ray April 06, 2024 CLINICAL INDICATION: Male, 59 years old with history of Chest Pain, TECHNIQUE: Frontal and lateral views of the chest are obtained. FINDINGS: There is some chronic parenchymal changes bilaterally without suspicious focal air space o pacity, pleural effusion, or pneumothorax seen. Slightly elevated left hemidiaphragm. The cardiac si lhouette size remains within normal limits. Anterior fusion plate lower cervical spine is partially i alla. IMPRESSION: Chronic changes without acute process. [facility], , 11/14/2024 10:54 AM
[2024-11-14 11:02] LABS: Basophils % (A) 0 %; Eosinophils # (A) 0.1 k/uL (0-0.7); Eosinophils % (A) 1 %; HCT 48.1 % (39.0-53.0); HGB 15.6 gm/dL (13.0-17.5); Lymphocytes # (A) 2.8 k/uL (1.0-4.8); Lymphocytes % (A) 27 %; MCH 28.4 pg (25.0-35.0); MCHC 32.4 g/dL (31.0-37.0); MCV 87.6 fL (80.0-100.0); Monocytes % (A) 10 %; Neutrophils # (A) 6.1 k/uL (1.3-7.7); Neutrophils % (A) 59 %; Platelet Count 303 k/uL (150-450); RBC 5.49 m/uL (4.30-5.90); RDW 13.5 % (11.5-15.5); WBC 10.4 k/uL (3.8-10.6)
[2024-11-14 11:13] LABS: ALT 40 U/L (4-49); AST 30 U/L (17-59); African American GFR (CKD) >90 (>60 ml/min/1.73 sqM); Albumin 4.5 g/dL (3.5-5.0); Alkaline Phosphatase 114 U/L (38-126); Anion Gap 8 mmol/L; Blood Urea Nitrogen 14 mg/dL (9-20); Calcium 9.9 mg/dL (8.4-10.2); Carbon Dioxide 25 mmol/L (22-30); Chloride 105 mmol/L (98-107); Glucose 99 mg/dL (74-99); Magnesium 1.9 mg/dL (1.6-2.3); Non-African American GFR(CKD) >90 (>60 ml/min/1.73 sqM); Potassium 4.4 mmol/L (3.5-5.1); Sodium 138 mmol/L (137-145); Total Bilirubin 0.5 mg/dL (0.2-1.3); Total Protein 7.4 g/dL (6.3-8.2)
[2024-11-14 11:41] LABS: INR 1.1 (<1.2); Prothrombin Time 12.1 sec (10.0-12.5)
[2024-11-14] MEDS ORDERED: NALOXONE 0.4 MG/ML 1 ML VIAL IV PRN (12:44)
[2024-11-14] MEDS: ASPIRIN 325 MG TAB PO STA (12:52)
[2024-11-14] MEDS ORDERED: ALPRAZolam 0.25 MG TAB PO PRN (20:35)
[2024-11-14] MEDS: NICOTINE 14MG/24HR PATCH TRANSDERM SCH (20:51)
[2024-11-14] MEDS: PANTOPRAZOLE 40 MG/10 ML VIAL IVP SCH (20:51)
[2024-11-14] MEDS: ACETAMINOPHEN TAB 325 MG TAB PO PRN (20:56)
--- NOTE | 2024-11-15 03:14 | HP ---
HISTORY AND PHYSICAL CHIEF COMPLAINT: Chest pain. HISTORY OF PRESENT ILLNESS: This is a 59-year-old gentleman with a past medical history of multiple medical problems including COPD, hyperlipidemia, was complaining of chest pain which was constricting in the front of the chest and radiating to the back also. The patient had a dobutamine stress echo which was negative last year. There is no history of any fever, rigors, or chills at this time. The initial troponins are normal. PAST MEDICAL HISTORY: Reviewed include COPD, hyperlipidemia, rest of the history and chart is also reviewed. HOME MEDICATIONS: Metformin. ALLERGIES: Amoxicillin. Rest of the allergies noted. FAMILY HISTORY: History of breast cancer. SOCIAL HISTORY: Continued smoking. REVIEW OF SYSTEMS: Fourteen-point review is negative. PHYSICAL EXAMINATION: VITAL SIGNS: Pulse is 85, blood pressure 108/60, respirations 16. HEENT: Conjunctivae normal. NECK: No JVD. CARDIOVASCULAR: S1, S2 RESPIRATIONS: Few scattered rhonchi. No crackles. ABDOMEN: Soft, nontender. LEGS: No edema. No swelling. LABORATORY DATA: Reviewed. IMAGING STUDIES: The EKG shows ST-T changes in V1. Chest x-ray was reviewed. ASSESSMENT: 1. Chest pain, possible unstable angina. 2. Chronic obstructive pulmonary disease. 3. Hyperlipidemia. 4. History of pneumonia. 5. History of nicotine dependence. 6. History of cardiac catheterization. 7. History of cholecystectomy. RECOMMENDATIONS AND DISCUSSION: This 59-year-old gentleman presented with multiple complex medical issues. I recommend to continue the current management and treatment. A 2D echo done last year was normal LV. Cardiac cath was done in [address] Rashid, which showed [id number] coronary artery disease, 20% to 30% stenosis. In this 59-year-old gentleman, we will continue to monitor, cardiology consultation, unstable angina protocol, symptomatic treatment, resume the home medications. The patient might require a cardiac catheterization, especially since the stress test last year was negative and the patient has history of [id number] coronary artery disease and as well as continued smoking also. I would also recommend D-dimer also. MMODL / IJN: [id number] /
[2024-11-15] MEDS: ALBUTEROL NEBULIZED 2.5 MG/3 ML INHALATION PRN (08:00)
[2024-11-15] MEDS: TIOTROPIUM 2.5 MCG INHALER INHALATION SCH (08:00)
[2024-11-15] MEDS: SYMBICORT 160-4.5 MCG INHALER INHALATION SCH (08:00)
[2024-11-15 09:43] LABS: HCT 46.7 % (39.6-50.0); HGB 14.7 g/dL (13.0-17.0); MCH 27.8 pg (27.0-32.0); MCHC 31.5 g/dL (32.0-37.0); MCV 88.4 FL (80.0-97.0); Mean Platelet Volume 10.8 FL (9.5-12.2); NRBC Per 100 WBC 0 X 10*3/uL (0.00-0.01); Platelet Count 335 X 10*3/uL (140-440); RBC 5.28 X 10*6/uL (4.40-5.60); RDW 13.4 % (11.5-14.5); WBC 10.98 X 10*3/uL (4.50-10.00)
[2024-11-15 10:10] LABS: Basophils # (A) 0.07 X 10*3/uL (0.00-0.10); Basophils % (A) 0.6 %; Eosinophils # (A) 0.23 X 10*3/uL (0.04-0.35); Eosinophils % (A) 2.1 %; Lymphocytes # (A) 4.11 X 10*3/uL (0.90-5.00); Lymphocytes % (A) 37.4 %; Monocytes # (A) 1.52 X 10*3/uL (0.20-1.00); Monocytes % (A) 13.8 %; Neutrophils # (A) 4.99 X 10*3/uL (1.80-7.70); Neutrophils % (A) 45.6 %
[2024-11-15] MEDS: HYDROcodone/APAP 5-325MG 1 EACH TAB PO PRN (11:52)
[2024-11-15] MEDS: ASPIRIN 81 MG PO SCH (11:52)
[2024-11-15] MEDS: METOPROLOL SUCCINATE (ER) 50 MG TAB.ER.24H PO SCH (11:52)
[2024-11-15 13:28] LABS: BUN/Creat Ratio 15.88 Ratio (12.00-20.00); Blood Urea Nitrogen 12.7 mg/dL (9.0-27.0); Glucose 109 mg/dL (70-110)
[2024-11-15 13:29] LABS: Carbon Dioxide 20.1 mmol/L (21.6-31.8); Chloride 107 mmol/L (96-109); Potassium 4.3 mmol/L (3.5-5.5); Sodium 140 mmol/L (135-145)
--- NOTE | 2024-11-15 14:38 | P.CRDCN ---
History of Present Illness Consult date: 11/15/24 History of present illness: HISTORY OF PRESENTING ILLNESS: Patient is known to Dr. Rashid. 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 His echo at that time showed an EF of 55% with no regional wall motion normality, mild mitral regurgitation. His dobutamine stress echo was nonrevealing and did not show any inducible ischemia from ECG or echocardiogram. He also has history of exertional palpitations. For this he has been managed on metoprolol This time he presents to the hospital because of because of ongoing substernal chest pressure and back pain for last 1 to 2 days. He is also experiencing palpitations whenever he would do minimal physical activity like going up and getting to the bathroom. The symptoms have been going on for about last 1 to 2 days. Admission labs shows normal D-dimer, 3 times troponin were negative, Hb 15, BUN 12, creatinine 0.8. Admission ECG showed normal sinus rhythm with no significant resting ST-T wave changes concerning for acute ischemia. REVIEW OF SYSTEMS: 14 point review of system is negative except what is mentioned above in HPI. PHYSICAL EXAMINATION: Neck: Brisk carotid upstroke, no jugular venous distention. Lungs: Clear to auscultation. Heart: Regular rate and rhythm, S1-S2, , no murmur or rub. Equal pulses bilateral upper and lower extremity Abdomen: Soft nontender, positive bowel sounds. Extremities: No edema, intact distal pulses. Neuro: Alert, oritented, no focal deficits. Detailed neuro exam was not performed. ASSESSMENT: # Substernal chest pressure with dyspnea on exertion # Palpitations # Mild obstructive CAD PLAN: Obtain an echocardiogram and a treadmill echo stress test. If patient is unable to walk on treadmill, transition into dobutamine stress echo. Continue aspirin, Lipitor, metoprolol succinate 50 mg daily. Continue to monitor telemetry He symptoms of palpitations are limited to minimal exertion. On review of telemetry it appears to be sinus tachycardia however patient is very concerned about arrhythmias. Differential includes PE and aortic dissection however D-dimer is negative and equal pulses in bilateral upper extremity. Chest x-ray does not show any mediastinal widening. Other differential includes urethral calculi. Recently he had some imaging done and treatment for it with regular at [facility]. I am not aware of the status however. Defer this to primary team Matt Larios MD, FAC, RPVI Thank you for allowing [facility] to participate in this patient's care. Feel free to reach out in case of any followup questions. Past Medical History Past Medical History: COPD, Hyperlipidemia, Neurologic Disorder, Pneumonia Additional Past Medical History / Comment(s): DIVERTICULITIS. BACK AND NECK PAIN, migraines from neck injury, severe whiplash 05/30. Hx Bronchitis. Neuropathy, twitching left thumb. History of Any Multi-Drug Resistant Organisms: None Reported Past Surgical History: Back Surgery, Bowel Resection, Cholecystectomy, Heart Catheterization, Orthopedic Surgery, Tonsillectomy Additional Past Surgical History / Comment(s): L5 S1 laminectomy, right knee arthroscopy, plates and screws in neck, heart cath Past Anesthesia/Blood Transfusion Reactions: No Reported Reaction Past Psychological History: No Psychological Hx Reported Smoking Status: Current every day smoker Past Alcohol Use History: None Reported Past Drug Use History: None Reported - Past Family History Mother Family Medical History: Cancer Additional Family Medical History / Comment(s): Breast Cancer. Father Family Medical History: Coronary Artery Disease (CAD) Brother(s) Family Medical History: Renal Disease Additional Family Medical History / Comment(s): Kidney and heart disease. Kidney cancer. Sister(s) Additional Family Medical History / Comment(s): Blood clots throughout body and brain lesions. Medications and Allergies Home Medications Medication Instructions Recorded Confirmed Type Fluticasone Propion/Salmeterol 1 puff INHALATION RT-BID 02/12/24 11/14/24 History [Advair 500-50 Diskus] Tiotropium 2.5 Mcg/Puff [Spiriva 2 puff INHALATION RT-DAILY 02/12/24 11/14/24 History Respimat 2.5 Mcg] Aspirin 81 mg PO DAILY tab 02/13/24 11/14/24 Rx Albuterol Inhaler [Ventolin Hfa 2 puff INHALATION RT-Q4H PRN 02/15/24 11/14/24 History Inhaler] Metoprolol Succinate (ER) [Toprol 50 mg PO DAILY 02/15/24 11/14/24 History XL] metFORMIN HCL 500 mg PO BID 02/15/24 11/14/24 History Allergies Allergy/AdvReac Type Severity Reaction Status Date / Time amoxicillin [Amoxicillin] Allergy Rash/Hives Verified 11/14/24 11:19 vancomycin Allergy "red man Verified 11/14/24 11:19 syndrome" clavulanic acid AdvReac Rash/Hives Verified 11/14/24 11:19 [From Augmentin] Physical Exam Vitals: Vital Signs Temp Pulse Pulse Resp BP BP Pulse Ox 11/15/24 14:04 97.9 F 75 18 113/71 94 L 11/15/24 13:43 88 11/15/24 13:32 90 11/15/24 11:50 86 18 108/72 94 L 11/15/24 08:15 90 11/15/24 08:00 92 94 L 11/15/24 07:16 97.9 F 80 17 113/74 93 L 11/15/24 02:09 97.6 F 79 18 112/75 98 11/14/24 19:24 85 16 108/68 95 11/14/24 18:06 97.4 F L 78 16 129/81 96 11/14/24 17:23 98.6 F 85 18 112/89 96 11/14/24 15:49 81 18 113/83 95 11/14/24 14:44 87 20 120/87 94 L Intake and Output 11/14/24 11/15/24 11/15/24 22:59 06:59 14:59 Intake Total 480 Output Total 400 Balance 80 Intake: Oral 480 Output: Urine 400 Other: Voiding Method Toilet # Voids 1 Results 11/15/24 02:55 11/15/24 02:55 Cardiac Enzymes 11/14/24 11/14/24 Range/Units 14:33 17:27 Troponin I <0.012 <0.012 (0.000-0.034) ng/mL CBC 11/15/24 Range/Units 02:55 WBC 10.98 H (4.50-10.00) X 10*3/uL RBC 5.28 (4.40-5.60) X 10*6/uL Hgb 14.7 (13.0-17.0) g/dL Hct 46.7 (39.6-50.0) % Plt Count 335 (140-440) X 10*3/uL Comprehensive Metabolic Panel 11/15/24 Range/Units 02:55 Sodium 140 (135-145) mmol/L Potassium 4.3 (3.5-5.5) mmol/L Chloride 107 (96-109) mmol/L Carbon Dioxide 20.1 L (21.6-31.8) mmol/L BUN 12.7 (9.0-27.0) mg/dL Creatinine 0.8 (0.6-1.5) mg/dL Glucose 109 (70-110) mg/dL Calcium 9.0 (8.7-10.3) mg/dL Current Medications Generic Name Dose Route Start Last Admin Trade Name Freq PRN Reason Stop Dose Admin Acetaminophen 650 mg 11/14/24 12:44 11/15/24 06:00 Acetaminophen Tab 325 Mg Tab PO 650 mg Q6HR PRN Administration Mild Pain or Fever > 100.5 Hydrocodone Bitart/Acetaminophen 1 each 11/14/24 20:35 11/15/24 11:52 Hydrocodone/Apap 5-325mg 1 Each Tab PO 1 each Q6HR PRN Administration Moderate to Severe Pain (4-10) Albuterol Sulfate 2.5 mg 11/14/24 20:35 11/15/24 13:32 Albuterol Nebulized 2.5 Mg/3 Ml INHALATION 2.5 mg RT-Q4H PRN Administration Shortness Of Breath Alprazolam 0.25 mg 11/14/24 20:35 Alprazolam 0.25 Mg Tab PO TID PRN Anxiety Aspirin 81 mg 11/15/24 09:00 11/15/24 11:52 Aspirin 81 Mg PO 81 mg DAILY JONATHAN Administration Atorvastatin Calcium 40 mg 11/15/24 14:00 Atorvastatin 40 Mg Tab PO DAILY [facility] Budesonide/Formoterol Fumarate 2 puff 11/15/24 08:00 11/15/24 08:00 Symbicort 160-4.5 Mcg Inhaler INHALATION 2 puff RT-BID JONATHAN Administration Metoprolol Succinate 50 mg 11/15/24 09:00 11/15/24 11:52 Metoprolol Succinate (Er) 50 Mg Tab.Er.24h PO 50 mg DAILY JONATHAN Administration Naloxone HCl 0.2 mg 11/14/24 12:44 Naloxone 0.4 Mg/Ml 1 Ml Vial IV Q2M PRN Opioid Reversal Nicotine 1 patch 11/14/24 21:00 11/15/24 08:51 Nicotine 14mg/24hr Patch TRANSDERM 1 patch DAILY JONATHAN Administration Pantoprazole Sodium 40 mg 11/14/24 21:00 11/15/24 08:51 Pantoprazole 40 Mg/10 Ml Vial IVP 40 mg DAILY JONATHAN Administration Tiotropium [place] 2 puff 11/15/24 08:00 11/15/24 08:00 Tiotropium 2.5 Mcg Inhaler INHALATION 2 puff RT-DAILY JONATHAN Administration Intake and Output 11/14/24 11/15/24 11/15/24 22:59 06:59 14:59 Intake Total 480 Output Total 400 Balance 80 Intake: Oral 480 Output: Urine 400 Other: Voiding Method Toilet # Voids 1 11/15/24 02:55 11/15/24 02:55
[2024-11-15] MEDS: ATORVASTATIN 40 MG TAB PO SCH (15:13)
[2024-11-15] MEDS: ATORVASTATIN 80 MG TAB PO SCH (16:06)
[2024-11-15 17:39] LABS: Influenza A Not Detected (Not Detectd); Influenza B Not Detected (Not Detectd); RSV Not Detected (Not Detectd)
[2024-11-15 17:45] LABS: Chol/HDL Ratio 5.76 Ratio; LDL Cholesterol,Calculated 107.1 mg/dL (0.0-131.0)
[2024-11-15 17:50] LABS: NT-Pro-B-Type Natriuretic Pept <36 pg/mL (0-125)
--- NOTE | 2024-11-16 05:20 | PN ---
PROGRESS NOTE DATE OF SERVICE: 11/15/2024 HISTORY OF PRESENT ILLNESS: This 59-year-old gentleman, admitted with chest pain, is being closely monitored. Myocardial infarction ruled out. Cardiology has recommended a stress test. No chest pain or palpitation. PHYSICAL EXAMINATION: VITAL SIGNS: Pulse 75, blood pressure 130/70, respirations 18. CHEST: Clear to auscultation. CARDIOVASCULAR: S1, S2. ABDOMEN: Soft. NERVOUS SYSTEM: Nonfocal. LABORATORY DATA: Reviewed. ASSESSMENT: 1. Chest pain, possible unstable angina. 2. Elevated WBC. 3. Chronic obstructive pulmonary disease. 4. Hyperlipidemia. 5. History of pneumonia. 6. History of nicotine dependence. 7. History of cardiac catheterization. 8. History of cholecystectomy. RECOMMENDATIONS: Recommend to continue current management and continue symptomatic treatment. Otherwise, D-dimer is negative. Repeat labs. Closely follow with Cardiology. Prognosis guarded. Further recommendations to follow. MMODL / IJN: [id number] /
[2024-11-16 09:28] LABS: Basophils # (A) 0.05 X 10*3/uL (0.00-0.10); Basophils % (A) 0.4 %; Eosinophils % (A) 1.4 %; HCT 45.8 % (39.6-50.0); HGB 14.6 g/dL (13.0-17.0); Lymphocytes # (A) 4.13 X 10*3/uL (0.90-5.00); Lymphocytes % (A) 29.8 %; MCH 28.3 pg (27.0-32.0); MCHC 31.9 g/dL (32.0-37.0); MCV 88.8 FL (80.0-97.0); Mean Platelet Volume 10.7 FL (9.5-12.2); Monocytes # (A) 1.66 X 10*3/uL (0.20-1.00); NRBC Per 100 WBC 0 X 10*3/uL (0.00-0.01); Neutrophils # (A) 7.74 X 10*3/uL (1.80-7.70); Platelet Count 336 X 10*3/uL (140-440); RBC 5.16 X 10*6/uL (4.40-5.60); RDW 13.3 % (11.5-14.5); WBC 13.84 X 10*3/uL (4.50-10.00)
[2024-11-16 10:15] LABS: BUN/Creat Ratio 15.11 Ratio (12.00-20.00); Blood Urea Nitrogen 13.6 mg/dL (9.0-27.0); Chloride 106 mmol/L (96-109); Glucose 113 mg/dL (70-110); Potassium 4.4 mmol/L (3.5-5.5); Sodium 138 mmol/L (135-145)
[2024-11-16 10:16] LABS: ALT 40 U/L (10-49); AST 26 U/L (14-35); Albumin 3.9 g/dL (3.8-4.9); Albumin/Globulin Ratio 1.56 Ratio (1.60-3.17); Alkaline Phosphatase 119 U/L (41-126); Calcium 9.1 mg/dL (8.7-10.3); Carbon Dioxide 21.9 mmol/L (21.6-31.8); Globulin 2.5 g/dL (1.6-3.3); Total Bilirubin 0.3 mg/dL (0.3-1.2); Total Protein 6.4 g/dL (6.2-8.2)
--- NOTE | 2024-11-16 19:53 | P.PN ---
Subjective Progress Note Date: 11/16/24 HISTORY OF PRESENTING ILLNESS: Patient is known to Dr. Rashid. 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 His echo at that time showed an EF of 55% with no regional wall motion normality, mild mitral regurgitation. His dobutamine stress echo was nonrevealing and did not show any inducible ischemia from ECG or echocardiogram. He also has history of exertional palpitations. For this he has been managed on metoprolol This time he presents to the hospital because of because of ongoing substernal c hest pressure and back pain for last 1 to 2 days. He is also experiencing palpitations whenever he would do minimal physical activity like going up and getting to the bathroom. The symptoms have been going on for about last 1 to 2 days. Admission labs shows normal D-dimer, 3 times troponin were negative, Hb 15, BUN 12, creatinine 0.8. Admission ECG showed normal sinus rhythm with no significant resting ST-T wave changes concerning for acute ischemia. 11/16/2024 Patient seen and examined at bedside this a.m. He still reporting substernal chest pressure but reports that his pain intensity is got better. There is a clinical suspicion of pericarditis for this I will order ESR and CRP level. PHYSICAL EXAMINATION: Neck: Brisk carotid upstroke, no jugular venous distention. Lungs: Clear to auscultation. Heart: Regular rate and rhythm, S1-S2, , no murmur or rub. Equal pulses bilateral upper and lower extremity Abdomen: Soft nontender, positive bowel sounds. Extremities: No edema, intact distal pulses. Neuro: Alert, oritented, no focal deficits. Detailed neuro exam was not performed. ASSESSMENT: # Substernal chest pressure with dyspnea on exertion # Palpitations # Mild obstructive CAD PLAN: Obtain an echocardiogram and a treadmill echo stress test. If patient is unable to walk on treadmill, transition into dobutamine stress echo. Obtain ESR and CRP levels Continue aspirin, Lipitor, metoprolol succinate 50 mg daily. Continue to monitor telemetry He symptoms of palpitations are limited to minimal exertion. On review of telemetry it appears to be sinus tachycardia however patient is very concerned about arrhythmias. Objective - Vital Signs Vital signs: Vital Signs Temp 97.4 F L 11/16/24 13:54 Pulse 82 11/16/24 16:22 Resp 17 11/16/24 13:54 BP 106/71 11/16/24 13:54 Pulse Ox 96 11/16/24 13:54 FiO2 Intake & Output 11/16/24 11/16/24 11/17/24 06:59 18:59 06:59 Intake Total 480 Output Total Balance 480 Intake: Oral 480 Output: Urine Other: Voiding Method Toilet # Voids 2 - Labs CBC & Chem 7: 11/16/24 03:54 11/16/24 03:54 Labs: Abnormal Lab Results - Last 24 Hours (Table) 11/16/24 11/16/24 Range/Units 03:54 03:54 WBC 13.84 H (4.50-10.00) X 10*3/uL MCHC 31.9 L (32.0-37.0) g/dL Immature Gran # 0.06 H (0.00-0.04) X 10*3/uL Neutrophils # 7.74 H (1.80-7.70) X 10*3/uL Monocytes # 1.66 H (0.20-1.00) X 10*3/uL Glucose 113 H (70-110) mg/dL Albumin/Globulin Ratio 1.56 L (1.60-3.17) Ratio
--- NOTE | 2024-11-16 23:41 | PN ---
PROGRESS NOTE DATE OF SERVICE: 11/16/2024 SUBJECTIVE: This is a 59-year-old gentleman, admitted with chest pain. He is being evaluated. Stress test is being scheduled for tomorrow. White count is mildly elevated. The patient also had recent workup in [facility]. PHYSICAL EXAMINATION: VITAL SIGNS: Pulse is 86, blood pressure 105/75, respirations 16. CHEST: Few scattered rhonchi. ABDOMEN: Soft. CARDIOVASCULAR: S1, S2 normal. LABORATORY DATA: Reviewed. ASSESSMENT: 1. Chest pain, possible unstable angina. 2. Elevated WBC of undetermined etiology. 3. Chronic obstructive pulmonary disease. 4. Hyperlipidemia. 5. History of pneumonia. 6. History of nicotine dependence. 7. History of cardiac catheterization. 8. History of cholecystectomy. RECOMMENDATIONS AND DISCUSSION: Recommended to continue current management and continue symptomatic treatment. Otherwise, D-dimer is negative. Recommended serum procalcitonin as well. Otherwise, repeat labs. The patient is not on steroids. Further recommendations to follow. Stress test tomorrow. MMODL / IJN: [id number] /
[2024-11-17 08:23] LABS: ALT 36 U/L (10-49); AST 22 U/L (14-35); Albumin 3.9 g/dL (3.8-4.9); Alkaline Phosphatase 112 U/L (41-126); BUN/Creat Ratio 16.62 Ratio (12.00-20.00); Blood Urea Nitrogen 13.3 mg/dL (9.0-27.0); Calcium 8.8 mg/dL (8.7-10.3); Carbon Dioxide 23.9 mmol/L (21.6-31.8); Chloride 107 mmol/L (96-109); Globulin 2.3 g/dL (1.6-3.3); Glucose 106 mg/dL (70-110); Potassium 4.4 mmol/L (3.5-5.5); Sodium 140 mmol/L (135-145); Total Bilirubin 0.2 mg/dL (0.3-1.2); Total Protein 6.2 g/dL (6.2-8.2)
[2024-11-17 08:54] LABS: Basophils # (A) 0.06 X 10*3/uL (0.00-0.10); Basophils % (A) 0.5 %; Eosinophils # (A) 0.27 X 10*3/uL (0.04-0.35); Eosinophils % (A) 2.2 %; HGB 14.1 g/dL (13.0-17.0); Lymphocytes # (A) 3.48 X 10*3/uL (0.90-5.00); Lymphocytes % (A) 28.7 %; MCH 28.3 pg (27.0-32.0); MCV 88.4 FL (80.0-97.0); Mean Platelet Volume 10.7 FL (9.5-12.2); Monocytes # (A) 1.82 X 10*3/uL (0.20-1.00); NRBC Per 100 WBC 0 X 10*3/uL (0.00-0.01); Neutrophils # (A) 6.45 X 10*3/uL (1.80-7.70); Neutrophils % (A) 53.2 %; Platelet Count 298 X 10*3/uL (140-440); RBC 4.98 X 10*6/uL (4.40-5.60); RDW 13.2 % (11.5-14.5); WBC 12.13 X 10*3/uL (4.50-10.00)
--- NOTE | 2024-11-17 11:16 | CA ---
Transthoracic Echo Report Name: Abner Dempsey Age: 59 Gender: M : 1965 Exam Date: 11/17/2024 07:59 Exam Location: [facility] Ht (in): 73 Wt (lb): 225 Ordering Physician: Matt Larios MD Attending/Referring Phys: Chin Strap Sewer Dolly Goncalves RDCS Procedure CPT: Indications: Chest Pain Cardiac Hx: Technical Quality: Fair Contrast 1: Total Dose (mL): Contrast 2: Total Dose (mL): MEASUREMENTS (Male / Female) Normal Values 2D ECHO LV Diastolic Diameter PLAX 4.9 cm 4.2 - 5.9 / 3.9 - 5.3 cm LV Systolic Diameter PLAX 2.8 cm IVS Diastolic Thickness 1.0 cm 0.6 - 1.0 / 0.6 - 0.9 cm LVPW Diastolic Thickness 1.0 cm 0.6 - 1.0 / 0.6 - 0.9 cm LV Relative Wall Thickness 0.4 RV Internal Dim ED PLAX 2.4 cm LA Systolic Diameter LX 3.8 cm 3.0 - 4.0 / 2.7 - 3.8 cm LV Diastolic Volume MOD BP 89.5 cm??? 67 - 155 / 56 - 104 cm??? LV Systolic Volume MOD BP 36.9 cm??? 22 - 58 / 19 - 49 cm??? LV Ejection Fraction MOD BP 58.8 % >= 55 % LV Cardiac Index MOD BP 1408.2 cm???/min???m??? LV Diastolic Volume MOD 4C 119.8 cm??? LV Systolic Volume MOD 4C 34.4 cm??? LV Ejection Fraction MOD 4C 71.3 % LV Cardiac Index MOD 4C 2288.0 cm???/min???m??? LV Diastolic Length 4C 8.3 cm LV Systolic Length 4C 6.9 cm LV Diastolic Volume MOD 2C 63.7 cm??? LV Systolic Volume MOD 2C 38.2 cm??? LV Ejection Fraction MOD 2C 40.0 % LV Cardiac Index MOD 2C 683.2 cm???/min???m??? LV Diastolic Length 2C 7.7 cm LV Systolic Length 2C 7.2 cm M-MODE Aortic Root Diameter MM 3.6 cm LA Systolic Diameter MM 4.2 cm LA Ao Ratio MM 1.2 AV Cusp Separation MM 2.2 cm DOPPLER Mitral E Point Velocity 75.0 cm/s Mitral A Point Velocity 67.2 cm/s Mitral E to A Ratio 1.1 MV Deceleration Time 242.8 ms MV E' Velocity 5.9 cm/s Mitral E to MV E' Ratio 12.7 TR Peak Velocity 234.1 cm/s TR Peak Gradient 21.9 mmHg FINDINGS Left Ventricle Left ventricular ejection fraction is estimated at 55-60 %. Normal left ventricular systolic function with no obvious regional wall motion abnormalities. Left ventricular cavity size normal. Left ventricular wall thickness normal. Right Ventricle Normal right ventricular size and function. Right ventricular systolic pressure within normal limits. Right Atrium Normal right atrial size. Left Atrium Normal left atrial size. Mitral Valve Structurally normal mitral valve. Moderate mitral regurgitation. No mitral stenosis. Aortic Valve Trileaflet aortic valve. No aortic stenosis. No aortic regurgitation. Tricuspid Valve Structurally normal tricuspid valve. Mild tricuspid regurgitation. No tricuspid stenosis. Pulmonic Valve Structurally normal pulmonic valve. Trace pulmonic regurgitation. No pulmonic stenosis. Pericardium No pericardial or pleural effusion. Aorta Aorta at upper limits of normal. CONCLUSIONS Left ventricular ejection fraction 55-60% Moderate mitral regurgitation Mild tricuspid regurgitation RVSP 22 No pericardial effusion Previewed by: Dr. Romeo Rashid DO (Electronically Signed) Final Date: 17 November 2024 11:15
--- NOTE | 2024-11-17 11:36 | P.PN ---
Subjective HISTORY OF PRESENTING ILLNESS: Patient is known to Dr. Rashid. 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 His echo at that time showed an EF of 55% with no regional wall motion normality, mild mitral regurgitation. His dobutamine stress echo was nonrevealing and did not show any inducible ischemia from ECG or echocardiogram. He also has history of exertional palpitations. For this he has been managed on metoprolol This time he presents to the hospital because of because of ongoing substernal chest pressure and back pain for last 1 to 2 days. He is also experiencing palpitations whenever he would do minimal physical activity like going up and getting to the bathroom. The symptoms have been going on for about last 1 to 2 days. Admission labs shows normal D-dimer, 3 times troponin were negative, Hb 15, BUN 12, creatinine 0.8. Admission ECG showed normal sinus rhythm with no significant resting ST-T wave changes concerning for acute ischemia. 11/16/2024 Patient seen and examined at bedside this a.m. He still reporting substernal chest pressure but reports that his pain intensity is got better. There is a clinical suspicion of pericarditis for this I will order ESR and CRP level. 11/17 Continues to have intermittent chest pain. Usually worse if he takes a deep breath then. Does have a low-grade white blood cell count. Calcitonin was ordered as well as ESR and CRP and these levels are pending. Echo showing preserved EF without significant effusion and no significant valvular disease. PHYSICAL EXAMINATION: Neck: Brisk carotid upstroke, no jugular venous distention. Lungs: Clear to auscultation. Heart: Regular rate and rhythm, S1-S2, , no murmur or rub. Equal pulses bilateral upper and lower extremity Abdomen: Soft nontender, positive bowel sounds. Extremities: No edema, intact distal pulses. Neuro: Alert, oritented, no focal deficits. Detailed neuro exam was not performed. ASSESSMENT: # Substernal chest pressure with dyspnea on exertion # Palpitations # Mild obstructive CAD PLAN: Obtain an echocardiogram and a treadmill echo stress test. If patient is unable to walk on treadmill, transition into dobutamine stress echo. Await sed rate and CRP however symptoms not classic for pericarditis with no significant EKG changes concerning. If stress test normal patient may be discharged home from cardiology standpoint. Objective - Vital Signs Vital signs: Vital Signs Temp 97.8 F 11/17/24 07:00 Pulse 62 11/17/24 07:00 Resp 16 11/17/24 07:00 BP 121/78 11/17/24 07:00 Pulse Ox 96 11/17/24 09:13 FiO2 Intake & Output 11/16/24 11/17/24 11/17/24 18:59 06:59 18:59 Intake Total 480 Balance 480 Intake: Oral 480 Other: Voiding Method Toilet Toilet # Voids 2 2 # Bowel Movements 1 - Labs CBC & Chem 7: 11/17/24 05:07 11/17/24 05:07 Labs: Abnormal Lab Results - Last 24 Hours (Table) 11/17/24 11/17/24 Range/Units 05:07 05:07 WBC 12.13 H (4.50-10.00) X 10*3/uL Immature Gran # 0.05 H (0.00-0.04) X 10*3/uL Monocytes # 1.82 H (0.20-1.00) X 10*3/uL Total Bilirubin 0.2 L (0.3-1.2) mg/dL
--- NOTE | 2024-11-17 16:51 | CA ---
Stress Echo Report Abner Dempsey Age: 59 Gender: M : 1965 Exam Date: 11/17/2024 12:43 Exam Location: [facility] Ht (in): 73 Wt (lb): 225 Ordering Physician: Matt Larios MD ([id number]) Referring Physician: BRENDAN,, [employer] Machining Coordinator: Mitra Pizano RDCS Technologist Procedure CPT: Indication: chest pressure ICD-9 Codes: Rhythm: Patient History: CHEST PRESSURE, KRISTEL, PALPITATIONS, NUMBNESS IN FACE/NECK, HTN, DIABETIC, HYPERCHOLESTEROLEMIA, FAMILY HX OF HEART DISEASE, CURRENT SMOKER, COPD Cardiac Medications: Medications in past 24 hours: Contrast: Definity Stress Results Protocol: Juan Total dose(mL): 2 Exercise Duration (min:sec): 8:[address] Depression (mm): Angina Score: Colin Score: METS: 10.3 Resting HR: 75 Resting BP: 125 / 78 Peak HR: 129 Peak BP: 171 / 70 Max Predicted HR: 163 79 % Max Predicted HR Target HR: 139 Double Product: 71052 Stress Summary: BP Response: Reason for Termination: MAX EXERTION Cardiac Symptoms: CHEST PRESSURE ECG Analysis Resting ECG: Stress ECG: Arrhythmia: Echo Analysis Resting Echo: Peak Echo Analysis: MEASUREMENTS (Male/Female) Normal Values CONCLUSIONS Patient underwent exercise stress echo with a Juan protocol treadmill stress test. Patient exercised into Stage 3 for a total of 8 minutes and 48 seconds reaching a total of 10.3 METS. Patient's maximum heart rate was 129 which represented 79% age- predicted maximum heart rate. Stress EKG portion: At baseline patient's EKG showed normal sinus rhythm, normal axis, no significant ST or T wave abnormalities. At peak exercise, EKG showed no significant change from baseline. Stress echo portion: 2-D echocardiogram was performed in the parasternal long, personal short, apical 2 and apical four-chamber views at rest, peak exercise and in recovery. At baseline, echocardiogram showed left ventricular ejection fraction 50-55% without wall motion abnormalities. With peak exercise, echocardiogram shows improvement in left ventricular ejection fraction, increase contractility, decrease in left ventricular end systolic dimension without wall motion abnormalities consistent with a normal response to exercise. Conclusions: 1. Technically inadequate stress test given inability reach 85% maximum predicted heart rate 2. However at 79% maximum predicted heart rate, no inducible ischemia 3. Chest pressure noted with exertion. Clinical correlation recommended. Dr. Romeo Rashid DO (Electronically Signed) Final Date: 17 November 2024 16:50
[2024-11-18 08:05] VITALS: BP 107/71; RESP 16; TEMP 97.5
--- NOTE | 2024-11-18 08:58 | P.PN ---
Subjective Progress Note Date: 11/17/24 Patient evaluated today resting in bed. Having no complaints of chest pain or shortness of breath. He is currently pending treadmill stress test. His echocardiogram comes back revealing an EF of 55 to 60% with moderate mitral regurgitation and mild tricuspid regurgitation. Blood work today reveals a whit e blood cell count of 12.13, unremarkable chemistry panel. Procalcitonin level was negative at 0.08 ESR and CRP are both within normal limits as well. Patient has remained afebrile 97% on room air heart rate of 67 normal sinus rhythm and a blood pressure 107/71. Pending further recommendations from cardiology once stress test results are available. Review of Systems Constitutional: Denied any fatigue denied any fever. Cardio vascular: denied any chest pain, palpitations Gastrointestinal: denied any nausea, vomiting, diarrhea Pulmonary: Denied any shortness of breath cough Neurologic denied any new focal deficits All inpatient medications were reviewed and appropriate changes in these m edications as dictated in the interval history and assessment and plan. PHYSICAL EXAMINATION: GENERAL: The patient is alert and oriented x3, not in any acute distress. Well developed, well nourished. HEENT: Pupils are round and equally reacting to light. EOMI. No scleral icterus. No conjunctival pallor. Normocephalic, atraumatic. No pharyngeal erythema. No thyromegaly. CARDIOVASCULAR: S1 and S2 present. No murmurs, rubs, or gallops. PULMONARY: Chest is clear to auscultation, no wheezing or crackles. ABDOMEN: Soft, nontender, nondistended, normoactive bowel sounds. No palpable organomegaly. MUSCULOSKELETAL: No joint swelling or deformity. EXTREMITIES: No cyanosis, clubbing, or pedal edema. NEUROLOGICAL: Gross neurological examination did not reveal any focal deficits. SKIN: No rashes. Assessment and Plan Chest pain, substernal rule out ACS Exertional dyspnea Coronary artery disease with mild disease from prior cardiac catheterization History of COPD no acute exacerbation Chroinc back and neck pain Chronic nicotine use GI prophylaxis Full Code Plan Pending stress test results and further cardiac recommendations Wean off oxygen support patient saturations are 97% on 2 L he does not require oxygen Nicotine patch has been ordered Continue Symbicort and Spiriva inhaler Continue aspirin 81 mg daily Continue high-dose statin therapy The impression and plan of care has been dictated by Serenity Benton, Nurse Practitioner as directed. Dr. Holly MD I have performed a history and physical examination and medical decision making of this patient, discussed the same with the dictator, and agree with the dictators assessment and plan as written, documented as a scribe. Based on total visit time, I have performed more than 50% of this visit. Objective - Vital Signs Vital signs: Vital Signs Temp 97.9 F 11/17/24 15:00 Pulse 67 11/17/24 15:00 Resp 16 11/17/24 15:00 BP 122/85 11/17/24 15:00 Pulse Ox 96 11/17/24 15:00 FiO2 Intake & Output 11/17/24 11/17/24 11/18/24 06:59 18:59 06:59 Other: Voiding Method Toilet # Voids 2 2 # Bowel Movements 1 - Labs CBC & Chem 7: 11/17/24 05:07 11/17/24 05:07 Labs: Abnormal Lab Results - Last 24 Hours (Table) 11/17/24 11/17/24 Range/Units 05:07 05:07 WBC 12.13 H (4.50-10.00) X 10*3/uL Immature Gran # 0.05 H (0.00-0.04) X 10*3/uL Monocytes # 1.82 H (0.20-1.00) X 10*3/uL Total Bilirubin 0.2 L (0.3-1.2) mg/dL Assessment and Plan Time with Patient: Less than 30
[2024-11-18 09:09] VITALS: PULSE 71
--- NOTE | 2024-11-18 10:35 | P.PN ---
Subjective HISTORY OF PRESENTING ILLNESS: Patient is known to Dr. Rashid. 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 His echo at that time showed an EF of 55% with no regional wall motion normality, mild mitral regurgitation. His dobutamine stress echo was nonrevealing and did not show any inducible ischemia from ECG or echocardiogram. He also has history of exertional palpitations. For this he has been managed on metoprolol This time he presents to the hospital because of because of ongoing substernal chest pressure and back pain for last 1 to 2 days. He is also experiencing palpitations whenever he would do minimal physical activity like going up and getting to the bathroom. The symptoms have been going on for about last 1 to 2 days. Admission labs shows normal D-dimer, 3 times troponin were negative, Hb 15, BUN 12, creatinine 0.8. Admission ECG showed normal sinus rhythm with no significant resting ST-T wave changes concerning for acute ischemia. 11/16/2024 Patient seen and examined at bedside this a.m. He still reporting substernal chest pressure but reports that his pain intensity is got better. There is a clinical suspicion of pericarditis for this I will order ESR and CRP level. 11/17 Continues to have intermittent chest pain. Usually worse if he takes a deep breath then. Does have a low-grade white blood cell count. Calcitonin was ordered as well as ESR and CRP and these levels are pending. Echo showing preserved EF without significant effusion and no significant valvular disease. 11/18 Patient states overall his chest pain is improving. Sed rate, CRP and procalcitonin were all normal. He underwent echo which showed preserved EF. He underwent stress test which showed normal stress response with some atypical chest pain and technically inadequate test given inability to reach 85% maximum predicted heart rate however normal at 79%. PHYSICAL EXAMINATION: Neck: Brisk carotid upstroke, no jugular venous distention. Lungs: Clear to auscultation. Heart: Regular rate and rhythm, S1-S2, , no murmur or rub. Equal pulses bilateral upper and lower extremity Abdomen: Soft nontender, positive bowel sounds. Extremities: No edema, intact distal pulses. Neuro: Alert, oritented, no focal deficits. Detailed neuro exam was not performed. ASSESSMENT: # Substernal chest pressure with dyspnea on exertion # Palpitations # Mild obstructive CAD PLAN: Sed rate and CRP are normal with normal procalcitonin as well. Chest pain overall is atypical. Unable to reach 85% maximum predicted heart rate however otherwise normal stress test and therefore discussed monitoring him symptomatically and if has more symptoms may consider further assessment. Cleared for discharge with outpatient follow-up within 1 week. Objective - Vital Signs Vital signs: Vital Signs Temp 97.5 F L 11/18/24 07:00 Pulse 71 11/18/24 09:09 Resp 16 11/18/24 07:00 BP 107/71 11/18/24 07:00 Pulse Ox 97 11/18/24 07:00 FiO2 Intake & Output 11/17/24 11/18/24 11/18/24 18:59 06:59 18:59 Intake Total 540 Output Total 500 Balance 540 -500 Intake: Oral 540 Output: Urine 500 Other: Voiding Method Toilet # Voids 2 1 - Labs CBC & Chem 7: 11/17/24 05:07 11/17/24 05:07
--- NOTE | 2024-11-20 22:09 | P.DS ---
Providers Date of admission: 11/14/24 12:45 Attending physician: Milan Sloan Consults: 11/14/24 12:44 Consult Physician Routine Consulting Provider: Matt Larios Consult Reason/Comments: CP Do you want consulting provider notified?: Yes Primary care physician: Maris Sloan Hospital Course: Final Diagnosis Chest pain, substernal rule out ACS Exertional dyspnea Coronary artery disease with mild disease from prior cardiac catheterization History of COPD no acute exacerbation Chroinc back and neck pain Chronic nicotine use Discharge Disposition Patient stable for discharge home. He was weaned off oxygen support. He has been continued on nicotine patch and counseled extensively on smoking cessation. Patient will continue on his Symbicort and Spiriva inhaler. He continues on aspirin and high-dose statin therapy. Patient was cleared for discharge home on all same home medications. He will follow-up with his PCP Dr. Sloan 1 to 2 days and has a cardiology follow-up appointment on November [address] Rashid. Hospital Course This is a pleasant 59-year-old male with medical history of hyperlipidemia, coronary artery disease, COPD. Patient comes in for chest pain which was also recently worked up at [facility]. Patient reports the pain is substernal chest pressure and he has been also having back pain this has been ongoing for 1 to 2 days. Patient has been having palpitations with minimal exertion. Normal D-dimer troponin levels negative x 3 BUN was 12 creatinine was 0.8 hemoglobin 15. EKG reveals normal sinus rhythm without any significant ST or T wave changes concerning for any acute ischemia. Patient had an initial chest x-ray which was revealing chronically slightly elevated left hemidiaphragm, chronic parenchymal changes bilaterally without suspicious focal airspace opacity pleural effusion or pneumothorax. Patient was admitted to the hospital under internal medicine with cardiac consultation. Ejection fraction comes back with an EF of 55 to 60% with moderate mitral regurgitation and mild tricuspid regurgitation no pericardial effusion RVSP of 22. Patient underwent stress test which showed normal stress response to some atypical chest pain and technically an adequate study given his inability to reach 85% of the medics mom regular heart rate however normal at 79%. There is concern for possibly pericarditis sed rate CRP and procalcitonin were all normal. His chest pain has been improving. Patient was cleared for discharge and will follow-up with cardiology outpatient in 1 to 2 weeks. Please see medication reconciliation for a list of current medications. Thank you for allowing us to participate in the care of this patient. The impression and plan of care has been dictated by Serenity Benton, Nurse Practitioner as directed. Dr. Holly MD I have performed a history and physical examination and medical decision making of this patient, discussed the same with the dictator, and agree with the dictators assessment and plan as written, documented as a scribe. Based on total visit time, I have performed more than 50% of this visit. Patient Condition at Discharge: Stable Plan - Discharge Summary New Discharge Prescriptions: Continue Tiotropium 2.5 Mcg/Puff [Spiriva Respimat 2.5 Mcg] 2 puff INHALATION RT-DAILY metFORMIN HCL 500 mg PO BID Albuterol Inhaler [Ventolin Hfa Inhaler] 2 puff INHALATION RT-Q4H PRN PRN Reason: Shortness Of Breath Fluticasone Propion/Salmeterol [Advair 500-50 Diskus] 1 puff INHALATION RT- BID Aspirin 81 mg PO DAILY tab Metoprolol Succinate (ER) [Toprol XL] 50 mg PO DAILY Atorvastatin [Lipitor] 80 mg PO DAILY Discharge Medication List Fluticasone Propion/Salmeterol [Advair 500-50 Diskus] 1 puff INHALATION RT-BID 02/12/24 [History] Tiotropium 2.5 Mcg/Puff [Spiriva Respimat 2.5 Mcg] 2 puff INHALATION RT-DAILY 02/12/24 [History] Aspirin 81 mg PO DAILY tab 02/13/24 [Rx] Albuterol Inhaler [Ventolin Hfa Inhaler] 2 puff INHALATION RT-Q4H PRN 02/15/24 [History] Metoprolol Succinate (ER) [Toprol XL] 50 mg PO DAILY 02/15/24 [History] metFORMIN HCL 500 mg PO BID 02/15/24 [History] Atorvastatin [Lipitor] 80 mg PO DAILY 11/15/24 [History] Follow up Appointment(s)/Referral(s): Romeo Rashid DO [STAFF PHYSICIAN] - 11/25/24 11:00 am Maris Sloan DO [Primary Care Provider] - 1-2 days Patient Instructions/Handouts: Chest Pain (DC) Discharge Disposition: HOME SELF-CARE
== END 2024-11-18 11:29 | disposition home or self-care (01) ==
LOC: EC 10:23 → 6NMEDSUR 12:45
PROVIDERS: ADMIT Hospitalist; ATTEND Hospitalist
DX: R07.2 Precordial pain (principal); R00.0 Tachycardia, unspecified; I25.10 Atherosclerotic heart disease of native coronary artery without angina pectoris; J44.9 Chronic obstructive pulmonary disease, unspecified; E78.5 Hyperlipidemia, unspecified; I08.1 Rheumatic disorders of both mitral and tricuspid valves; D72.829 Elevated white blood cell count, unspecified; G89.29 Other chronic pain; M54.2 Cervicalgia; M54.9 Dorsalgia, unspecified; F17.200 Nicotine dependence, unspecified, uncomplicated; Z79.82 Long term (current) use of aspirin; Z79.84 Long term (current) use of oral hypoglycemic drugs; Z79.899 Other long term (current) drug therapy; Z79.51 Long term (current) use of inhaled steroids; Z88.0 Allergy status to penicillin; Z88.1 Allergy status to other antibiotic agents; Z88.8 Allergy status to other drugs, medicaments and biological substances; Z87.01 Personal history of pneumonia (recurrent); Z90.49 Acquired absence of other specified parts of digestive tract; Z98.890 Other specified postprocedural states
CPT/HCPCS: 96376 ×4; 96374; 99285; 36415; 94640 ×8; 94760 ×3; 93005; 93306; 93351; 85379; 83880; 80061; 80053 ×3; 80048; 85652; 84443; 83735 ×2; 84484; 85025 ×4; 85610; 85730; 86140; 83036; 84145; 87636; 71046; G0378 ×5; S4990 ×4; Q9957; J2470 ×5